=== PATIENT | male | born 1930 | race Caucasian/White ===

== ENCOUNTER 2017-06-28 06:13 | Observation (INO) ==
[2017-06-28 06:33] LABS: Basophils % 0.3 %; Eosinophils % 0.4 %; Hemoglobin 13.4 g/dL (12.9-16.9); Immature Granulocytes % 0.5 % (0-4); Lymphocytes # 0.9 K/mcL (0.6-4.6); Lymphocytes % 8.7 %; Mean Corpuscular HGB Conc 32.7 g/dL (31.6-35.5); Mean Corpuscular Hemoglobin 29.1 pg (28.0-33.3); Mean Corpuscular Volume 88.9 fL (83.0-100.0); Mean Platelet Volume 8.5 fL (9.4-12.4); Monocytes # 0.5 K/mcL (0.0-1.3); Neutrophils # 8.4 K/mcL (1.6-8.9); Platelet Count 237 K/mcL (140-400); Red Blood Count 4.61 M/mcL (4.19-5.50); Red Cell Distribution Width 13.3 % (11.5-14.5); Segmented Neutrophils % 85.1 %
--- NOTE | 2017-06-28 06:33 | Emergency Department Note ---
Disposition Clinical Impression: Abdominal pain Qualifiers: Abdominal location: unspecified location Qualified Code(s): R10.9 - Unspecified abdominal pain Disposition: Still a Patient Condition: Undetermined Forms: ED Satisfaction Letter, Work/School Release General Adult HPI - General Chief complaint: ED Abdominal Pain Stated complaint: abd pain Time Seen by Provider: 06/28/17 06:14 Source: patient, EMS Mode of arrival: EMS Limitations: no limitations Nursing Notes Reviewed: Yes Vital Signs Reviewed: Yes - History of Present Illness HPI Narrative: 87-year-old male history of hypertension presents to the ED via EMS for or abdominal pain. Pain started around 2 AM this morning. He had eaten supper around 1999 no issues attempted ago asleep but has been experiencing a dull ache in the right upper quadrant. Pain is nonradiating. No associated nausea, vomiting, chest pain, shortness of breath. Prior to arrival here pain resolved. No history of such pain in the past. Had a recent hernia surgery [address] Mooney but still has his appendix and gallbladder. Denies any history of cardiac ischemic disease. Patient was never smoker. He does have this straight Himself since his surgery as he also has prostate issues. Pain was initially reported as right lower quadrant but upon exam is consistently in the right upper quadrant Pain Scale: 2 - Related Data Home Medications Medication Instructions Recorded Confirmed Amlodipine Besylate [Amlodipine 10 mg PO DAILY 11/25/15 11/25/15 Besylate] Aspirin 81 mg PO DAILY 11/25/15 11/25/15 Calcium Carbonate [Calcium] 600 mg PO DAILY 11/25/15 11/25/15 Chlorthalidone 25 mg PO QAM 11/25/15 11/25/15 Donepezil [Aricept] 10 mg PO HS 11/25/15 11/25/15 Ergocalciferol (VITAMIN D2) 200 unit PO DAILY 11/25/15 11/25/15 [Vitamin D] Irbesartan [Avapro] 75 mg PO DAILY 11/25/15 11/25/15 Isosorbide MONOnitrate [Isosorbide 120 mg PO DAILY 11/25/15 11/25/15 Mononitrate ER] Multivit-Min/FA/Lycopen/Lutein 1 each PO DAILY 11/25/15 11/25/15 [Centrum Silver Tablet] Omeprazole [PriLOSEC] 20 mg PO DAILY 11/25/15 11/25/15 Tamsulosin [Flomax] 0.4 mg PO DAILY 11/25/15 11/25/15 Previous Rx's Medication Instructions Recorded Oxycodone HCl/Acetaminophen 1 tab PO Q6H PRN #39 tab 11/25/15 [Percocet 10-325 mg Tablet] Ciprofloxacin [Cipro] 500 mg PO BID #14 tablet 12/03/15 Hydrocodone/Acetaminophen 1 each PO Q6HR PRN #14 tablet 06/04/16 [Hydrocodon-Acetaminophen 5-325] Allergies Allergy/AdvReac Type Severity Reaction Status Date / Time Amoxicillin Allergy Hives Verified 06/28/17 06:14 clindamycin Allergy Hives Verified 06/28/17 06:14 Penicillins Allergy Hives Verified 06/28/17 06:14 All systems ED: reviewed and negative except as stated. Review of Systems: As Per HPI Constitutional: Denies: fever, chills Eyes: Denies: eye pain, vision change ENT ED: Denies: congestion, dysphagia Cardiovascular: Denies: chest pain, dyspnea on exertion Respiratory: Denies: cough, dyspnea Gastrointestinal: Reports: abdominal pain. Denies: nausea, vomiting, diarrhea, constipation, melena, hematochezia Genitourinary: Denies: urgency, dysuria Musculoskeletal: Denies: back pain, neck pain Integumentary: Denies: rash, abrasion Neurological: Denies: headache, weakness Psychiatric: Denies: anxiety, depression Past Medical History - Past Medical History Attestation: Yes The following information was validated with the patient. Source: patient Medical history: Reports: GERD, hypertension, other Psychiatric history: Reports: no psych history - Social History Smoking Status: Never smoker Smokeless Tobacco Status: No Alcohol use: Reports: occasionally Drug use: Reports: none Physical Exam - General Limitations: no limitations General appearance: alert, in no apparent distress - Head Head exam: atraumatic, normocephalic, normal inspection - Eye Eye exam: Present: normal appearance, PERRL, EOMI - ENT ENT exam: normal exam, normal oropharynx, mucous membranes moist - Neck Neck exam: Present: normal inspection, full ROM, trachea midline - Chest Chest inspection: Present: normal inspection, symmetric chest wall rise. Absent : tenderness, rash - Respiratory Respiratory exam: Present: normal lung sounds bilaterally. Absent: respiratory distress, wheezes - Cardiovascular Cardiovascular exam: Present: normal rhythm, bradycardia, normal heart sounds. Absent: systolic murmur, diastolic murmur - Abdominal Exam Abdominal exam: Present: soft, tenderness, normal bowel sounds, Tian's sign. Absent: Non-Tender, distention, guarding, rebound, rigidity, tenderness at McBurney's Point, hernia Abdominal tenderness: Present: RUQ - Extremities Exam Extremities exam: Present: normal inspection, full ROM, normal capillary refill. Absent: tenderness, pedal edema, calf tenderness - Back Exam Back exam: Present: normal inspection, full ROM. Absent: tenderness, CVA tenderness (R), CVA tenderness (L) - Neurological Exam Neurological exam: Present: alert, oriented X3 - Psychiatric Psychiatric exam: Present: normal affect, normal mood - Skin Skin exam: Present: warm, dry, intact, normal color Course Course Narrative: 87-year-old male presents with abdominal pain in the right upper quadrant. Sudden in onset described as a ache ache nonradiating. Denies any associated chest pain or shortness of breath. Denies any diaphoresis. He does admit to occasional alcohol use. Denies any history of coronary arterial disease. Vital signs are stable. EKG does not show ST elevations or depression. Will check a CMP, lipase as well as a troponin EKG and chest x-ray. Bedside ultrasound to evaluate the gallbladder showed some sludge but no pericholecystic fluid or anterior wall thickening. Patient will be signed up to daytime physician Dr. Carbajal and Dr. Dao for further management and disposition. Vital Signs Temperature 97.4 F L 06/28/17 06:14 Pulse Rate 65 06/28/17 06:14 Respiratory Rate 16 06/28/17 06:14 Blood Pressure 164/76 06/28/17 06:14 O2 Sat by Pulse Oximetry 98 06/28/17 06:14 Temperature 97.4 F L 06/28/17 06:14 Pulse Rate 65 06/28/17 06:14 Respiratory Rate 16 06/28/17 06:14 Blood Pressure 164/76 06/28/17 06:14 O2 Sat by Pulse Oximetry 98 06/28/17 06:14 Oxygen Delivery Oxygen Delivery Room Air Medical Decision Making - Medical Records Medical records reviewed: Yes I reviewed the patient's medical records. - Lab Data Lab results reviewed: Yes I reviewed the patient's lab results. Result diagrams: 06/28/17 06:28 06/28/17 06:28 Lab Results 06/28/17 06/28/17 06/28/17 Range/Units 06:28 06:28 06:28 WBC 9.8 (4.3-11.1) K/mcL RBC 4.61 (4.19-5.50) M/mcL Hgb 13.4 (12.9-16.9) g/dL Hct 41.0 (37.5-50.1) % MCV 88.9 (83.0-100.0) fL MCH 29.1 (28.0-33.3) pg MCHC 32.7 (31.6-35.5) g/dL RDW 13.3 (11.5-14.5) % Plt Count 237 (140-400) K/mcL MPV 8.5 L (9.4-12.4) fL Immature Gran % 0.5 (0-4) % Seg Neutrophils % 85.1 % Lymphocytes % 8.7 % Monocytes % 5.0 % Eosinophils % 0.4 % Basophils % 0.3 % Neutrophils # 8.4 (1.6-8.9) K/mcL Lymphocytes # 0.9 (0.6-4.6) K/mcL Monocytes # 0.5 (0.0-1.3) K/mcL Eosinophils # 0.0 (0.0-0.6) K/mcL Basophils # 0.0 (0.0-0.2) K/mcL Sodium 139 (136-145) mEq/L Potassium 3.1 L (3.5-4.5) mEq/L Chloride 102 (98-109) mEq/L Carbon Dioxide 27 (19-29) mEq/L BUN 16 (8-26) mg/dL Creatinine 1.32 H (0.72-1.25) mg/dL Est GFR ( Amer) > 60 (> 60) Est GFR (Non-Af Amer) 51 L (> 60) BUN/Creatinine Ratio 12 (6-26) Glucose 177 H (70-99) mg/dL Calculated Osmolality 294 (280-300) Calcium 9.3 (8.6-10.8) mg/dL Total Bilirubin 0.6 (0.2-1.2) mg/dL Direct Bilirubin 0.3 (0.0-0.5) mg/dL Indirect Bilirubin 0.3 (0.0-1.2) mg/dL AST 20 (5-34) Units/L ALT 18 (0-55) Units/L Alkaline Phosphatase 93 (38-126) Units/L Troponin I 0.02 (0-0.03) ng/mL Serum Total Protein 7.3 (6.0-8.3) g/dL Albumin 3.7 (3.5-5.0) g/dL Globulin 3.6 H (2.4-3.5) g/dL Albumin/Globulin Ratio 1.0 L (1.1-2.2) Lipase < 10 (8-78) Units/L - Radiology Data Radiology results reviewed: Yes I reviewed the patient's radiology results. Chest X-Ray 06/28/17 06:23 IMPRESSION: Stable chest without focal airspace consolidation. D/ / Rashid Melgar MD / Rashid Melgar MD Interpreting Provider: Rashid Melgar MD - EKG Data EKG #1 EKG attestation: Yes I reviewed and interpreted this EKG. EKG results narrative: EKG performed 627 sinus bradycardia 54 bpm prolonged IA interval to 50 with a premature atrial contraction, there is poor R wave progression, other intervals are within normal limits. No ST elevations or depression. Compared to old EKG performed 11/10/2015 shows consistent findings of the sinus bradycardia with a first-degree AV block with moderate intraventricular conduction delay seen on today's EKG. No acute ischemic changes. S.B.A.R. - Kane.[email or web address].Clau Situation: Demographics, MOA Background: Presenting Complaint, Relevant PMH, Meds, & Allergies Assessment: Vital Signs, Course and respsone to treatment, Exam Concerns, Patient/Family Expectation, Pertinant Lab Results, Outstanding Labs Recommendation: Barrier(s) to disposition, Recommendation based on pending studies, treatments, or consults S.[email or web address] Report Given to: johann Chinchilla Time: 07:00
--- NOTE | 2017-06-28 06:41 | Emergency Department Note ---
START Narrative - START START: I, Boone Connors, examined this patient and my medical decision-making was reviewed with the TRUSS MAKER/PA/Advanced Practice Nurse/Resident Physician. I agree with the documented findings, disposition and treatment plan as described except to the extent set forth below. 87-year-old male presents emergency Department with concerns of right upper quadrant and epigastric abdominal pain which started around 2 AM. Patient states he is unable to sleep secondary to the pain. No history of similar pain in the past. Patient denies a history of cardiac disease although he has a history of elevated blood pressure. Pain is present in the emergency department he describes it as a dull ache in the right upper quadrant epigastrium that does not radiate. Initial EKG by EMS showed possible ST elevations in lead 3 however repeat EKG in the emergency Department does not show evidence of STEMI. It does however show multiple PACs. At time of end of shift, patient labs are pending and patient care will be transferred to Dr. Mata pending further care and evaluation
[2017-06-28 06:46] LABS: Alanine Aminotransferase 18 Units/L (0-55); Albumin 3.7 g/dL (3.5-5.0); Alkaline Phosphatase 93 Units/L (38-126); Aspartate Amino Transferase 20 Units/L (5-34); BUN/Creatinine Ratio 12 (6-26); Bilirubin,Direct 0.3 mg/dL (0.0-0.5); Bilirubin,Indirect 0.3 mg/dL (0.0-1.2); Bilirubin,Total 0.6 mg/dL (0.2-1.2); Blood Urea Nitrogen 16 mg/dL (8-26); Calcium 9.3 mg/dL (8.6-10.8); Carbon Dioxide 27 mEq/L (19-29); Chloride 102 mEq/L (98-109); Globulin 3.6 g/dL (2.4-3.5); Glucose 177 mg/dL (70-99); Osmolality,Calculated 294 (280-300); Potassium 3.1 mEq/L (3.5-4.5); Sodium 139 mEq/L (136-145); Total Protein 7.3 g/dL (6.0-8.3); eGFR For African Americans > 60 (> 60); eGFR For Non-African Americans 51 (> 60)
[2017-06-28 06:47] LABS: Lipase < 10 Units/L (8-78)
--- NOTE | 2017-06-28 07:29 | Emergency Department Note ---
Disposition Clinical Impression: RUQ pain, UTI (urinary tract infection) Cardiac arrhythmia Qualifiers: Arrhythmia type: unspecified cardiac arrhythmia Qualified Code(s): I49.9 - Cardiac arrhythmia, unspecified Disposition: Admitted As Inpatient Condition: Fair Time of Disposition: 12:10 Abdominal Pain HPI - General Chief Complaint: ED Abdominal Pain Stated Complaint: abd pain Time Seen by Provider: 06/28/17 06:14 Source: patient, EMS Mode of arrival: EMS Nursing Notes Reviewed: Yes Vital Signs Reviewed: Yes - History of Present Illness HPI Narrative: Patient received on sign out from the night team with laboratory results pending. Mr. Flores, an 87-year-old male, presents from home via EMS for abdominal pain. Onset 02:00. Located in the right upper quadrant. Described as a dull ache, nonradiating. Nothing noted to improve or worsen his symptoms. Spontaneously resolved just prior to arrival. He ate dinner the night previous without any issues. No history of similar pains in the past. Patient and his daughter at bedside are both concerned about the appendix. No history of CAD, ACS, COPD. PSH: Hernia surgery. Still has appendix and gallbladder. Habits: Never smoked, no elicit, no EtOH ROS: Positive: As above Negative: Fever, chills, nausea, vomiting, chest pain, dyspnea, diaphoresis, dysuria, changes in bowel habits, back pain Pain Scale: 2 - Related Data Home Medications Medication Instructions Recorded Confirmed Amlodipine Besylate [Amlodipine 10 mg PO DAILY 11/25/15 06/28/17 Besylate] Aspirin 81 mg PO DAILY 11/25/15 06/28/17 Calcium Carbonate [Calcium] 600 mg PO DAILY 11/25/15 06/28/17 Chlorthalidone 25 mg PO QAM 11/25/15 06/28/17 Donepezil [Aricept] 10 mg PO HS 11/25/15 06/28/17 Ergocalciferol (VITAMIN D2) 200 unit PO DAILY 11/25/15 06/28/17 [Vitamin D] Irbesartan [Avapro] 75 mg PO DAILY 11/25/15 06/28/17 Isosorbide MONOnitrate [Isosorbide 120 mg PO DAILY 11/25/15 06/28/17 Mononitrate ER] Multivit-Min/FA/Lycopen/Lutein 1 each PO DAILY 11/25/15 06/28/17 [Centrum Silver Tablet] Omeprazole [PriLOSEC] 20 mg PO DAILY 11/25/15 06/28/17 Tamsulosin [Flomax] 0.4 mg PO DAILY 11/25/15 06/28/17 Allergies Allergy/AdvReac Type Severity Reaction Status Date / Time Amoxicillin Allergy Hives Verified 06/28/17 06:14 clindamycin Allergy Hives Verified 06/28/17 06:14 Penicillins Allergy Hives Verified 06/28/17 06:14 All systems ED: reviewed and negative except as stated. Review of Systems: As Per HPI Constitutional: Denies: fever, chills Eyes: Denies: eye pain, vision change ENT ED: Denies: congestion, dysphagia Cardiovascular: Denies: chest pain, dyspnea on exertion Respiratory: Denies: cough, dyspnea Gastrointestinal: Reports: abdominal pain. Denies: nausea, vomiting, diarrhea, constipation, melena, hematochezia Genitourinary: Denies: urgency, dysuria Musculoskeletal: Denies: back pain, neck pain Integumentary: Denies: rash, abrasion Neurological: Denies: headache, weakness Psychiatric: Denies: anxiety, depression Abdominal Pain PMH - Past Medical History Medical history: Reports: GERD, hypertension, other Male Surgical History: Reports: herniorrhaphy Psychiatric history: Reports: no psych history - Social History Smoking status: Never smoker Alcohol use: Reports: occasionally Drug use: Reports: none Physical Exam Vital Signs Reviewed General: Patient is alert, oriented, and in no acute distress. HEENT: No facial asymmetry. Head is normocephalic and atraumatic. Oral mucosa moist. Trachea midline. Cardiovascular: Heart regular rate and rhythm without clicks, rubs, gallops, or murmurs. No JVD. PMI nondisplaced. Respiratory: Symmetric chest rise with good respiratory effort. Bilateral breath sounds are clear without wheezing, crackles, or rhonchi. Abdomen: Scaphoid. Bowel sounds present normoactive x-4 quadrants. Abdomen is soft, nondistended. No organomegaly noted. Right upper quadrant tenderness; positive Tian sign. No epigastric tenderness. No right lower quadrant tenderness, negative McBurney, negative Rozving. Psych: Patient's affect is appropriate for situation. - General Limitations: no limitations General appearance: alert, in no apparent distress Course Course Narrative: Patient's physical exam is not concerning for appendicitis. Physical exam is consistent with what I received on sign out; positive Tian with right upper quadrant tenderness. I discussed the patient with [facility]; patient's only intra-abdominal pathology was cholelithiasis without cholecysitis. Chest X-Ray 06/28/17 06:23 IMPRESSION: Stable chest without focal airspace consolidation. D/ / Rashid Melgar MD / Rashid Melgar MD Interpreting Provider: Rashid Melgar MD Abdomen/Pelvis CT 06/28/17 07:14 IMPRESSION: 1. No definite acute process identified in the abdomen or pelvis. 2. Tiny amount of pleural gas is seen at the anterior right lung base, suggesting a very tiny pneumothorax. This is not appreciated on the chest x-ray performed on the same date. No rib fractures are seen. This result was called by Dr. Daniela Baugh to Levi Dao on 06/28/2017 at 09:17. 3. Layering density in the gallbladder, suggesting gallstones and/or sludge. No CT evidence of gallbladder inflammation. Correlation with ultrasound reportedly performed in the Emergency Department is recommended. 4. Extensive colonic diverticulosis without evidence of acute diverticulitis. 5. Large right urinary bladder diverticulum with mild diffuse urinary bladder wall thickening, which could be related to cystitis or chronic outlet obstruction. D/ / 06/28/2017 09:21:42 Dnaiela Baugh / francisco Interpreting Provider: Daniela Baugh The reason for [facility], Dr. Baugh, who called to discuss a right lower lobe artifact versus pneumothorax. We both looked at the CT while on the phone as well as reviewed the patient's chest x-ray; no evidence of pneumothorax on chest x-ray. Still, because of the potential concerning finding , will admit patient for further monitoring and repeat CXR. I discussed the above with the patient and his daughter at bedside. They agree to admission for interval evaluation. There are no additional questions or concerns at this time. On my attending's reevaluation, patient was in atrial fibrillation. EKG ordered. CHADsVASC score = 2 Additional reason for admission is new onset atrial fibrillation. EKG showed sinus arrhythmia; unable to capture the SVT my attending saw while he was bedside. Will recommend tele bed. Additionally, patient has a UTI. He has a history of BPH necessitating self- cath. Will begin cipro IV and place son cath. I discussed the patient with the admitting hospitalist, Dr. Mendoza, who agrees to accept the patient. Vital Signs Temperature 97.4 F L 06/28/17 06:14 Pulse Rate 65 06/28/17 06:14 Respiratory Rate 16 06/28/17 06:14 Blood Pressure 164/76 06/28/17 06:14 O2 Sat by Pulse Oximetry 98 06/28/17 06:14 Temperature 98.1 F 06/28/17 15:00 Pulse Rate 68 06/28/17 15:00 Respiratory Rate 14 06/28/17 15:00 Blood Pressure 136/77 06/28/17 15:00 O2 Sat by Pulse Oximetry 96 06/28/17 15:00 Oxygen Delivery Oxygen Delivery Room Air Abdominal Pain - Lab Data Lab results reviewed: Yes I reviewed the patient's lab results. Result diagrams: 06/28/17 06:28 06/28/17 06:28 Lab Results 06/28/17 06/28/17 06/28/17 Range/Units 06:28 06:28 06:28 WBC 9.8 (4.3-11.1) K/mcL RBC 4.61 (4.19-5.50) M/mcL Hgb 13.4 (12.9-16.9) g/dL Hct 41.0 (37.5-50.1) % MCV 88.9 (83.0-100.0) fL MCH 29.1 (28.0-33.3) pg MCHC 32.7 (31.6-35.5) g/dL RDW 13.3 (11.5-14.5) % Plt Count 237 (140-400) K/mcL MPV 8.5 L (9.4-12.4) fL Immature Gran % 0.5 (0-4) % Seg Neutrophils % 85.1 % Lymphocytes % 8.7 % Monocytes % 5.0 % Eosinophils % 0.4 % Basophils % 0.3 % Neutrophils # 8.4 (1.6-8.9) K/mcL Lymphocytes # 0.9 (0.6-4.6) K/mcL Monocytes # 0.5 (0.0-1.3) K/mcL Eosinophils # 0.0 (0.0-0.6) K/mcL Basophils # 0.0 (0.0-0.2) K/mcL Sodium 139 (136-145) mEq/L Potassium 3.1 L (3.5-4.5) mEq/L Chloride 102 (98-109) mEq/L Carbon Dioxide 27 (19-29) mEq/L BUN 16 (8-26) mg/dL Creatinine 1.32 H (0.72-1.25) mg/dL Est GFR ( Amer) > 60 (> 60) Est GFR (Non-Af Amer) 51 L (> 60) BUN/Creatinine Ratio 12 (6-26) Glucose 177 H (70-99) mg/dL Calculated Osmolality 294 (280-300) Lactic Acid (0.5-2.2) mmol/L Calcium 9.3 (8.6-10.8) mg/dL Total Bilirubin 0.6 (0.2-1.2) mg/dL Direct Bilirubin 0.3 (0.0-0.5) mg/dL Indirect Bilirubin 0.3 (0.0-1.2) mg/dL AST 20 (5-34) Units/L ALT 18 (0-55) Units/L Alkaline Phosphatase 93 (38-126) Units/L Troponin I 0.02 (0-0.03) ng/mL Serum Total Protein 7.3 (6.0-8.3) g/dL Albumin 3.7 (3.5-5.0) g/dL Globulin 3.6 H (2.4-3.5) g/dL Albumin/Globulin Ratio 1.0 L (1.1-2.2) Lipase < 10 (8-78) Units/L Urine Color (Yellow) Urine Clarity (Clear) Urine pH (5.0-8.0) pH Units Ur Specific Cap[place] (1.010-1.025) Urine Protein (Neg-Trace) mg/dL Urine Glucose (UA) (Normal) mg/dL Urine Ketones (Negative) mg/dL Urine Blood (Negative) Urine Nitrite (Negative) Urine Bilirubin (Negative) Urine Urobilinogen (Normal) mg/dL Ur Leukocyte Esterase (Negative) Urine Microscopic RBC (0-3) per hpf Urine Microscopic WBC (0-3) per hpf Ur Squamous Epith Cells (None-Few) per lpf Urine Bacteria (None-Few) per hpf Hyaline Casts (None-Few) per lpf Ur Culture Indicated? (NO) 06/28/17 06/28/17 Range/Units 07:38 07:40 WBC (4.3-11.1) K/mcL RBC (4.19-5.50) M/mcL Hgb (12.9-16.9) g/dL Hct (37.5-50.1) % MCV (83.0-100.0) fL MCH (28.0-33.3) pg MCHC (31.6-35.5) g/dL RDW (11.5-14.5) % Plt Count (140-400) K/mcL MPV (9.4-12.4) fL Immature Gran % (0-4) % Seg Neutrophils % % Lymphocytes % % Monocytes % % Eosinophils % % Basophils % % Neutrophils # (1.6-8.9) K/mcL Lymphocytes # (0.6-4.6) K/mcL Monocytes # (0.0-1.3) K/mcL Eosinophils # (0.0-0.6) K/mcL Basophils # (0.0-0.2) K/mcL Sodium (136-145) mEq/L Potassium (3.5-4.5) mEq/L Chloride (98-109) mEq/L Carbon Dioxide (19-29) mEq/L BUN (8-26) mg/dL Creatinine (0.72-1.25) mg/dL Est GFR ( Amer) (> 60) Est GFR (Non-Af Amer) (> 60) BUN/Creatinine Ratio (6-26) Glucose (70-99) mg/dL Calculated Osmolality (280-300) Lactic Acid 0.8 (0.5-2.2) mmol/L Calcium (8.6-10.8) mg/dL Total Bilirubin (0.2-1.2) mg/dL Direct Bilirubin (0.0-0.5) mg/dL Indirect Bilirubin (0.0-1.2) mg/dL AST (5-34) Units/L ALT (0-55) Units/L Alkaline Phosphatase (38-126) Units/L Troponin I (0-0.03) ng/mL Serum Total Protein (6.0-8.3) g/dL Albumin (3.5-5.0) g/dL Globulin (2.4-3.5) g/dL Albumin/Globulin Ratio (1.1-2.2) Lipase (8-78) Units/L Urine Color Yellow (Yellow) Urine Clarity Cloudy A (Clear) Urine pH 7.0 (5.0-8.0) pH Units Ur Specific [place] 1.018 (1.010-1.025) Urine Protein 30 H (Neg-Trace) mg/dL Urine Glucose (UA) Normal (Normal) mg/dL Urine Ketones Trace H (Negative) mg/dL Urine Blood Moderate H (Negative) Urine Nitrite Negative (Negative) Urine Bilirubin Negative (Negative) Urine Urobilinogen Normal (Normal) mg/dL Ur Leukocyte Esterase Large H (Negative) Urine Microscopic RBC 15-30 H (0-3) per hpf Urine Microscopic WBC TNTC H (0-3) per hpf Ur Squamous Epith Cells Few (None-Few) per lpf Urine Bacteria Many H (None-Few) per hpf Hyaline Casts None Seen (None-Few) per lpf Ur Culture Indicated? YES A (NO) - EKG Data EKG attestation: Yes I reviewed and interpreted this EKG. EKG results narrative: EKG dated 06/28/17 at 11:11 interpreted as sinus rhythm with a rate of 63. OR 185, QRS 138, prolonged QT of 462 with QTc 469. Interventricular conduction delay. Left axis. Sinus arrhythmia. Nonspecific ST-T changes. No previous EKG for comparison. Attestation Statement - Attestation Attestation: I examined this patient and my medical decision-making was reviewed with the Resident Physician. I agree with the documented findings, disposition and treatment plan as described except to the extent set forth below. Findings consistent with right upper quadrant pain. CT scan shows possible pneumothorax. On review the imaging this is found to be a incidental trauma and likely does not represent an actual pneumothorax. We discussed with multiple radiologist. Patient will be admitted for evaluation of urinary tract infection in the setting of right upper quadrant pain.
[2017-06-28 07:49] LABS: Bilirubin,Urine Negative (Negative); Blood,Urine Moderate (Negative); Clarity,Urine Cloudy (Clear); Color,Urine Yellow (Yellow); Glucose,Urine (UA) Normal (Normal); Ketones,Urine Trace mg/dL (Negative); Leukocyte Esterase,Urine Large (Negative); Nitrite,Urine Negative (Negative); Protein,Urine 30 mg/dL (Neg-Trace); Specific Gravity,Urine 1.018 (1.010-1.025); Urobilinogen,Urine Normal (Normal)
[2017-06-28 07:52] LABS: Bacteria,Urine Many per hpf (None-Few); Hyaline Casts,Urine None Seen per lpf (None-Few); RBC,Urine 15-30 per hpf (0-3); Squamous Epithelial Cell,Urine Few per lpf (None-Few); WBC,Urine TNTC per hpf (0-3)
--- NOTE | 2017-06-28 14:16 | Electrocardiograph Report ---
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
--- NOTE | 2017-06-28 15:16 | Electrocardiograph Report ---
[facility] Test Date: 2017-06-28 Pat Name: Bonilla Flores Department: 104 Room: 3B31 Gender: M Cook Barbecue: KATELIN : 1930 Requested By: Ritchie Chamberlain Order Number: [id number] Reading MD: Gamaliel Burrows MD Measurements Intervals [place] Rate: 54 P: 95 DE: 250 QRS: -48 QRSD: 138 T: 70 QT: 494 QTc: 481 Interpretive Statements SINUS BRADYCARDIA WITH FIRST DEGREE AV BLOCK WITH FREQUENT SUPRAVENTRICULAR PREMATURE COMPLEXES Lefy bundle branch block, not new present 11/2015 SEPTAL MYOCARDIAL INFARCTION [40+ ms Q WAVE IN V1/V2], OF INDETERMINATE AGE Electronically Signed On 06-28-2017 15:15:40 EST by Gamaliel Burrows MD
--- NOTE | 2017-06-28 17:32 | Internal Med History&Physical ---
Date of Encounter: 06/28/17 Time of Encounter: 13:00 Assessment and Plan (1) Acute cystitis with hematuria Current visit: Yes Status: Acute -Patient found to have pyuria on urinalysis. -Will continue IV Cipro started in the ER. (2) Abdominal pain Current visit: Yes Status: Acute -Suspect secondary to the above. -Will continue to monitor. Qualifiers: Abdominal location: generalized Qualified Code(s): R10.84 - Generalized abdominal pain (3) Hypokalemia Current visit: Yes Status: Acute -Will order potassium replacements. (4) HTN (hypertension) Current visit: Yes Status: Acute -Blood pressure stable; continue home medications. Qualifiers: Hypertension type: essential hypertension Qualified Code(s): I10 - Essential (primary) hypertension (5) BPH (benign prostatic hyperplasia) Current visit: Yes Status: Acute -Continue home medications. Qualifiers: Lower urinary tract symptom presence: symptoms present Qualified Code(s): N40.1 - Benign prostatic hyperplasia with lower urinary tract symptoms; R39.14 - Feeling of incomplete bladder emptying; R39.14 - Feeling of incomplete bladder emptying (6) GERD (gastroesophageal reflux disease) Current visit: Yes Status: Acute -Continue home medications. Qualifiers: Esophagitis presence: esophagitis presence not specified Qualified Code(s) : K21.9 - Gastro-esophageal reflux disease without esophagitis (7) Dementia Current visit: Yes Status: Acute -Continue home medications. Qualifiers: Dementia type: unspecified type Qualified Code(s): F03.90 - Unspecified dementia without behavioral disturbance (8) DVT prophylaxis Current visit: Yes Status: Acute -Subcutaneous heparin. Internal Medicine - H&P: HPI Chief complaint: Right-sided abdominal pain Admitted From: Home Plans for Post Hospital Care: Home History of present illness: Patient is an 87-year-old male with past medical history significant for hypertension, BPH, GERD, and dementia, who presented to the ER on 06/28/17 with right-sided abdominal pain. Patient states that his symptoms started approximately 2 months ago and has been intermittent. Patient progresses the pain as dull severity as 6-8 out of 10 without any radiation or provoking/relieving factors. Patient decided to come to the ER for further evaluation. In the ER, patients vital signs were stable and was afebrile without any leukocytosis. Patient was found to have pyuria on urinalysis in addition to hypokalemia and DAVEY on routine labs. Patient will be admitted to the medical floor for treatment of acute cystitis with microscopic hematuria in addition to treatment for DAVEY and hypokalemia. Past Med Surg Social Fam HX - Past Medical History Medical history: GERD, hypertension, other Psychiatric history: no psych history - Social History Smoking Status: Never smoker Smokeless Tobacco Status: No Alcohol use: occasionally Drug use: none Internal Medicine - H&P: Meds Amlodipine Besylate [Amlodipine Besylate] 10 mg PO DAILY 11/25/15 [History] Aspirin 81 mg PO DAILY 11/25/15 [History] Calcium Carbonate [Calcium] 600 mg PO DAILY 11/25/15 [History] Chlorthalidone 25 mg PO QAM 11/25/15 [History] Donepezil [Aricept] 10 mg PO HS 11/25/15 [History] Ergocalciferol (VITAMIN D2) [Vitamin D] 200 unit PO DAILY 11/25/15 [History] Irbesartan [Avapro] 75 mg PO DAILY 11/25/15 [History] Isosorbide MONOnitrate [Isosorbide Mononitrate ER] 120 mg PO DAILY 11/25/15 [ History] Multivit-Min/FA/Lycopen/Lutein [Centrum Silver Tablet] 1 each PO DAILY 11/25/15 [History] Omeprazole [PriLOSEC] 20 mg PO DAILY 11/25/15 [History] Tamsulosin [Flomax] 0.4 mg PO DAILY 11/25/15 [History] 3 Allergy/AdvReac Type Severity Reaction Status Date / Time Amoxicillin Allergy Hives Verified 06/28/17 06:14 clindamycin Allergy Hives Verified 06/28/17 06:14 Penicillins Allergy Hives Verified 06/28/17 06:14 All Systems PM: A 10-system review of systems was performed and is negative for pertinent findings except as documented above in the HPI. - Constitutional Vitals: Temp Pulse Resp BP Pulse Ox 98.1 F 68 14 136/77 96 06/28/17 15:00 06/28/17 15:00 06/28/17 15:00 06/28/17 15:00 06/28/17 15:00 General appearance: Present: A&O X 3 - Head Head exam: Present: normocephalic - Eye Eye exam: Present: normal appearance - ENT ENT exam: Present: mucous membranes dry - Respiratory Respiratory exam: Present: CTAB. Absent: accessory muscle use, rales, rhonchi, wheezes - Cardiovascular Cardiovascular exam: Present: RRR, +S1, +S2. Absent: diastolic murmur, gallop, rubs, systolic murmur - GI/Abdominal GI/Abdominal exam: Present: normal bowel sounds, soft, no peritoneal signs. Absent: distended, tenderness - Extremities Exam Extremities exam: Present: pedal edema - Neurological Exam Neurological exam: Present: CN II-XII intact, oriented X3 - Psychiatric Psychiatric exam: Present: normal mood - Skin Skin exam: Present: normal color Internal Med - H&P Results - Labs CBC & Chem 7: 06/28/17 06:28 06/28/17 06:28
[2017-06-28] MEDS ORDERED: Naloxone 0.4 MG/ML INJ IVP PRN (17:38)
[2017-06-28] MEDS: 0.9 % Sodium Chloride 1,000 ML IVC SCH (18:40)
[2017-06-28] MEDS: *HR* Heparin 5,000 UNIT/ML VIAL SQ SCH (18:41)
[2017-06-29 04:43] LABS: Basophils % 0.4 %; Eosinophils # 0.2 K/mcL (0.0-0.6); Eosinophils % 2.8 %; Hematocrit 35.7 % (37.5-50.1); Immature Granulocytes % 0.3 % (0-4); Lymphocytes # 1.4 K/mcL (0.6-4.6); Lymphocytes % 19.7 %; Mean Corpuscular HGB Conc 32.8 g/dL (31.6-35.5); Mean Corpuscular Volume 88.4 fL (83.0-100.0); Mean Platelet Volume 9.2 fL (9.4-12.4); Monocytes # 0.7 K/mcL (0.0-1.3); Monocytes % 9.3 %; Neutrophils # 4.7 K/mcL (1.6-8.9); Platelet Count 227 K/mcL (140-400); Red Blood Count 4.04 M/mcL (4.19-5.50); Red Cell Distribution Width 13.3 % (11.5-14.5); Segmented Neutrophils % 67.5 %
[2017-06-29 04:46] LABS: Hemoglobin 11.7 g/dL (12.9-16.9)
[2017-06-29 05:00] LABS: BUN/Creatinine Ratio 15 (6-26); Blood Urea Nitrogen 16 mg/dL (8-26); Calcium 8.7 mg/dL (8.6-10.8); Carbon Dioxide 26 mEq/L (19-29); Chloride 105 mEq/L (98-109); Glucose 115 mg/dL (70-99); Osmolality,Calculated 292 (280-300); Potassium 3.2 mEq/L (3.5-4.5); Sodium 140 mEq/L (136-145); eGFR For African Americans > 60 (> 60); eGFR For Non-African Americans > 60 (> 60)
[2017-06-29] MEDS: *HR* Heparin 5,000 UNIT/ML VIAL SQ SCH (06:04)
[2017-06-29] MEDS ORDERED: Isosorbide MONOnitrate (24 HR) 60 MG TAB.ER.24H PO SCH (09:00)
[2017-06-29] MEDS ORDERED: Aspirin 81 MG TAB.CHEW PO SCH (09:00)
[2017-06-29] MEDS ORDERED: amLODIPine 5 MG TABLET PO SCH (09:00)
[2017-06-29] MEDS: 0.9 % Sodium Chloride 1,000 ML IVC SCH (10:27)
[2017-06-29 16:05] VITALS: BP 119/57
--- NOTE | 2017-06-29 16:58 | Discharge Summary ---
Date of Encounter: 06/29/17 Time of Encounter: 11:00 - Discharge Diagnosis (1) Acute cystitis with hematuria Priority: Primary Status: Acute (2) Abdominal pain Priority: Primary Status: Acute Qualifiers: Abdominal location: generalized Qualified Code(s): R10.84 - Generalized abdominal pain (3) Hypokalemia Priority: Secondary Status: Acute (4) HTN (hypertension) Priority: Primary Status: Acute Qualifiers: Hypertension type: essential hypertension Qualified Code(s): I10 - Essential (primary) hypertension (5) BPH (benign prostatic hyperplasia) Priority: Secondary Status: Acute Qualifiers: Lower urinary tract symptom presence: symptoms present Qualified Code(s): N40.1 - Benign prostatic hyperplasia with lower urinary tract symptoms; R35.0 - Frequency of micturition; R35.0 - Frequency of micturition (6) GERD (gastroesophageal reflux disease) Priority: Secondary Status: Acute Qualifiers: Esophagitis presence: esophagitis presence not specified Qualified Code(s) : K21.9 - Gastro-esophageal reflux disease without esophagitis (7) Dementia Priority: Secondary Status: Acute Qualifiers: Dementia type: unspecified type Qualified Code(s): F03.90 - Unspecified dementia without behavioral disturbance - Discharge Medications Prescriptions: Nitrofurantoin Monohyd/M-Cryst [Macrobid 100 mg Capsule] 100 mg PO BID #10 capsule Home Medications: Amlodipine Besylate 10 mg PO DAILY 11/25/15 [History] Aspirin 81 mg PO DAILY 11/25/15 [History] Calcium Carbonate [Calcium] 600 mg PO DAILY 11/25/15 [History] Chlorthalidone 25 mg PO QAM 11/25/15 [History] Donepezil [Aricept] 10 mg PO HS 11/25/15 [History] Ergocalciferol (VITAMIN D2) [Vitamin D] 200 unit PO DAILY 11/25/15 [History] Irbesartan [Avapro] 75 mg PO DAILY 11/25/15 [History] Isosorbide MONOnitrate [Isosorbide Mononitrate ER] 120 mg PO DAILY 11/25/15 [ History] Multivit-Min/FA/Lycopen/Lutein [Centrum Silver Tablet] 1 each PO DAILY 11/25/15 [History] Omeprazole [PriLOSEC] 20 mg PO DAILY 11/25/15 [History] Tamsulosin [Flomax] 0.4 mg PO DAILY 11/25/15 [History] Nitrofurantoin Monohyd/M-Cryst [Macrobid 100 mg Capsule] 100 mg PO BID #10 capsule 06/29/17 [Rx] Allergies/Adverse Reactions: 3 Allergy/AdvReac Type Severity Reaction Status Date / Time Amoxicillin Allergy Hives Verified 06/28/17 06:14 clindamycin Allergy Hives Verified 06/28/17 06:14 Penicillins Allergy Hives Verified 06/28/17 06:14 Date of admission: 06/28/17 11:51 Primary care physician: Susy Champagne, Consults: 06/29/17 12:45 Consult to It Security Project Manager [CONS] Routine Reason for SW Consult: possible need for home health. - Patient Status Disposition: Home, Self-Care Condition: Fair - Discharge Instructions Follow Up With: Susy Champagne CNP [Primary Care Provider] - 07/06/17 9:30 am Hospital course: Patient is an 87-year-old male with past medical history significant for hypertension, BPH, GERD, and dementia, who presented to the ER on 06/28/17 with right-sided abdominal pain. Patient states that his symptoms started approximately 2 months ago and has been intermittent. Patient progresses the pain as dull severity as 6-8 out of 10 without any radiation or provoking/relieving factors. Patient decided to come to the ER for further evaluation. In the ER, patients vital signs were stable and was afebrile without any leukocytosis. Patient was found to have pyuria on urinalysis in addition to hypokalemia and DAVEY on routine labs. Patient will be admitted to the medical floor for treatment of acute cystitis with microscopic hematuria in addition to treatment for DAVEY and hypokalemia. During patients overnight hospital stay, his abdominal symptoms resolved with treatment of acute cystitis with IV Cipro. In addition, patients hypokalemia was corrected with potassium replacements. Patient will be discharged to follow up with primary care provider in 3-5 days and to continue a 5 day course of Macrobid. - Time Spent with Patient Total time spent providing and/or coordinating discharge services: Less than 30 minutes - Constitutional Vitals: Temp Pulse Resp BP Pulse Ox 97.8 F 54 14 119/57 92 06/29/17 16:01 06/29/17 16:01 06/29/17 16:01 06/29/17 16:01 06/29/17 16:01 General appearance: Present: A&O X 3 - Cardiovascular Cardiovascular exam: Present: RRR, +S1, +S2. Absent: diastolic murmur, gallop, rubs, systolic murmur
== END 2017-06-29 17:44 | disposition home or self-care (01) ==
LOC: EMEROO 06:13 → 3BNU 06:13 → SUATTDRO 11:51 → 3BNU 12:04
PROVIDERS: ADMIT Internal Medicine; ATTEND Hospitalist

== ENCOUNTER 2017-07-12 09:10 | Observation (INO) ==
[2017-07-12] MEDS ORDERED: *HR* FentaNYL (PF) 100 MCG/2 ML VIAL IVP ONE (09:13)
--- NOTE | 2017-07-12 09:18 | Emergency Department Note ---
Disposition Clinical Impression: Dislocation of hip joint prosthesis Qualifiers: Encounter type: initial encounter Qualified Code(s): T84.029A - Dislocation of unspecified internal joint prosthesis, initial encounter Disposition: Admitted As Inpatient Condition: Undetermined Instructions: Hip Dislocation (ED), Knee Immobilizer (ED) Reasons to Return/Additional Instructions: 1. Please have no weightbearing on that right leg as well as using the pillow that was administered to you. 2. Please follow-up tomorrow, 07/13/17, at [facility] with Dr. Pollard at 3:15 PM. 3. Please return to the emergency department if you have another episode where the hip becomes dislocated, worsening pain, or any other new symptoms as advised him of the room. Referrals: Benton Alva MD [Primary Care Provider] - Hudson Pollard MD [Partnered Physician] - Forms: ED Satisfaction Letter Time of Disposition: 16:04 Lower Extremity Injury HPI - General Chief Complaint: ED Extremity Injury, Lower Stated Complaint: R hip pain Time Seen by Provider: 07/12/17 09:13 Source: patient, EMS Mode of arrival: EMS Limitations: no limitations Nursing Notes Reviewed: Yes Vital Signs Reviewed: Yes - History of Present Illness HPI Narrative: 87-year-old male with prosthetic right hip performed at [address] Pollard here in [facility] arrives to [facility] emergency department complaining of right hip pain after attempting to perform an electrical repair at his house. The patient states he felt a pop and immediately went down to the ground. The patient denies any other complaints at this time but is not a large amount of pain in his right lower extremity. He is an obvious deformity of his right hip with his right lower extremity shortened and internally rotated. 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 Denies: paresthesias - Related Data Home Medications Medication Instructions Recorded Confirmed Amlodipine Besylate 10 mg PO DAILY 11/25/15 07/12/17 Aspirin 81 mg PO DAILY 11/25/15 07/12/17 Chlorthalidone 25 mg PO QAM 11/25/15 07/12/17 Donepezil [Aricept] 10 mg PO HS 11/25/15 07/12/17 Irbesartan [Avapro] 75 mg PO DAILY 11/25/15 07/12/17 Isosorbide MONOnitrate [Isosorbide 120 mg PO DAILY 11/25/15 07/12/17 Mononitrate ER] Multivit-Min/FA/Lycopen/Lutein 1 each PO DAILY 11/25/15 07/12/17 [Centrum Silver Tablet] Omeprazole [PriLOSEC] 20 mg PO DAILY 11/25/15 07/12/17 Tamsulosin [Flomax] 0.4 mg PO BID 11/25/15 07/12/17 Calcium Carbonate [Calcium] 1,000 mg PO DAILY 07/12/17 07/12/17 Cholecalciferol (D-3) [Vitamin D] 1,000 unit PO DAILY 07/12/17 07/12/17 Allergies Allergy/AdvReac Type Severity Reaction Status Date / Time Amoxicillin Allergy Hives Verified 06/28/17 06:14 clindamycin Allergy Hives Verified 06/28/17 06:14 Penicillins Allergy Hives Verified 06/28/17 06:14 All systems ED: reviewed and negative except as stated. Constitutional: Denies: fever, chills, weakness Cardiovascular: Denies: chest pain Respiratory: Denies: dyspnea Gastrointestinal: Denies: abdominal pain Genitourinary: Denies: dysuria Musculoskeletal: Reports: arthralgia. Denies: back pain, neck pain, myalgia Integumentary: Denies: rash Neurological: Denies: numbness Past Medical History - Past Medical History Attestation: Yes The following information was validated with the patient. Source: patient Medical history: Reports: GERD, hypertension, other Surgical history: Reports: orthopedic, other (Right hip replacement) Psychiatric history: Reports: no psych history - Social History Smoking Status: Never smoker Smokeless Tobacco Status: No Alcohol use: Reports: occasionally Drug use: Reports: none Physical Exam - General Limitations: no limitations General appearance: alert, in distress (due to pain) - Head Head exam: atraumatic, normocephalic, normal inspection - Eye Eye exam: Present: normal appearance, PERRL, EOMI - ENT ENT exam: normal exam - Neck Neck exam: Present: normal inspection, full ROM, trachea midline - Chest Chest inspection: Present: normal inspection, symmetric chest wall rise - Respiratory Respiratory exam: Absent: respiratory distress - Cardiovascular Cardiovascular exam: Present: regular rate - Extremities Exam Extremities exam: Present: other (Patient has obvious deformity to right hip. Tenderness over right hip region. Right lower extremity is shortened and internally rotated. Neurovascularly intact at this time.) Course - Reevaluation(s) Reevaluation #1: After reevaluation after anesthesia began to wear off, patient is feeling much better. He was attempted to be ambulated around the room and in the emergency department. He was unable to do so without losing his bouts. We will admit the patient to the hospitalist at this time for observation and likely discharge home tomorrow. Patient and family members agree to plan. No further questions or concerns noted. Accepted by Time: 14:38 Reevaluation #2: After attempting to admit the patient to the hospitalist service, the hospitalist stated that he did not feel as though this patient to the hospital service and rather the service. We spoke to Dr. Narvaez in orthopedic surgery is currently scrubbed in surgery and he said to contact Dr. Fountain. After contacting Dr. Fountain he agreed to accept the patient to his service. He stated to admit the patient. Time: 16:04 - Consultations Consultation #1: Spoke to orthopedic procurement professional who will be contacting Dr. Pollard for further care. Awaiting return call. Time: 10:57 Vital Signs Temperature 97.7 F 07/12/17 09:23 Pulse Rate 61 07/12/17 09:23 Respiratory Rate 17 07/12/17 09:23 Blood Pressure 154/70 07/12/17 09:23 O2 Sat by Pulse Oximetry 98 07/12/17 09:23 Temperature 97.7 F 07/12/17 09:23 Pulse Rate 58 07/12/17 13:14 Respiratory Rate 18 07/12/17 13:14 Blood Pressure 151/76 07/12/17 13:14 O2 Sat by Pulse Oximetry 97 07/12/17 13:14 Oxygen Delivery Oxygen Delivery [] Nasal Cannula Oxygen Delivery [] Nasal Cannula Oxygen Delivery [] Nasal Cannula Oxygen Delivery [] Nasal Cannula Oxygen Delivery [] Nasal Cannula Oxygen Delivery [] Nasal Cannula Oxygen Delivery [] Nasal Cannula Oxygen Delivery [] Nasal Cannula Oxygen Delivery Room Air Procedures - Orthopedic Joint Reduction Joint #1 Consent Obtained: written consent Time Out Performed: Yes Side: right Joint Reduction Location: hip ASA Classification: CLASS II-Mild systemic disease Analgesia: procedural sedation Technique used: traction/counter-traction, direct manipulation Post-reduction neuro exam: intact Post-reduction vascular: intact Post Reduction X-Ray Obtained: Yes Post Reduction X-Ray Results: not reduced Splint Applied: Yes Patient Tolerated Procedure: well, no complications - Procedural Sedation Indication: fracture/dislocation reduction Dietary Status: unknown H&P (including ROS) documented in medical record: Yes Previous reaction to sedatives/anesthetics: No Dentition: No loose teeth or bridges, full dentition Airway Assessment: Patient can open mouth completely, TMJ function normal, Micrognathia (under-bite, receding chin) absent, Neck with adequate range of motion Possible difficult airway: No ASA Classification: CLASS II-Mild systemic disease Plan of Care: Pt appropriate candidate for procedure/moderate/conscious sedation , Risks/benefits of procedure/sedation discussed w/ patient/family, If not NPO; Risk of intake outweiged by necessity to perform procedure Preparation: in shop service technician applied, pulse oximeter, capnometry used, supplemental O2 applied, suction/airway equipment at bedside, IV secured Ketamine: IV (1st sedation) IV Propofol Dose (mgs): 80 (2nd sedation) Patient Tolerated Procedure: well, no complications Complications: none Interventions: airway repositioned Additional Comments: First sedation performed with IV ketamine. Second sedation performed with 80 mg IV propofol. No complications noted. Extremity Injury, Lower - MDM Narrative Medical decision making narrative: The patient's first reduction attempt for sedation was unsuccessful. After speaking with orthopedic surgery they decided to come to the emergency department for reduction. This was performed by Dr. Fountain. This was successful. The patient has a follow-up appointment with orthopedic surgery in one day with Dr. Pollard. The patient is resting comfortably at this time. An abduction pillow was given to the patient. The patient was given instructions to have no weightbearing. The patient and daughter made aware. No further questions or concerns noted at this time. - Radiology Data Radiology results reviewed: Yes I reviewed the patient's radiology results. Attestation Statement - Attestation Attestation: I examined this patient and my medical decision-making was reviewed with the Resident Physician. I agree with the documented findings, disposition and treatment plan as described except to the extent set forth below. Clinically obvious right hip dislocation in patient with history of right hip prosthesis. Neurovascularly intact. I was present and assisting with both sedations and both reduction attempt. Cleared for discharge by Dr. Fountain and by me.
[2017-07-12] MEDS ORDERED: *HR* HYDROmorphone (PF) 1 MG/ML SYRINGE ONE (09:35)
[2017-07-12] MEDS ORDERED: Ketamine *HR* 500 MG/10 ML MDV IVP ONE ×2 (09:38→10:59)
[2017-07-12] MEDS ORDERED: *HR* Propofol 500 MG/50 ML BOTTLE IVP ONE (11:00)
[2017-07-12] MEDS ORDERED: 0.9 % Sodium Chloride 1,000 ML ONE (11:16)
--- NOTE | 2017-07-12 14:11 | Orthopedic Consult Note ---
Date of Encounter: 07/12/17 Time of Encounter: 11:30 Assessment and Plan (1) Dislocation of hip joint prosthesis Current Visit: Yes Status: Acute I did discuss the diagnosis in detail with the patient. He has a right prosthetic hip dislocation. Our recommendation was for another attempt at reduction in the emergency department but under propofol anesthesia which I think will help relax the muscle. After informed consent was obtained and a brief timeout to identify the correct patient, correct procedure, and the correct side the patient was sedated by the emergency department using propofol and I performed a closed reduction maneuver which adequately restore length to the right lower extremity and rotation. X-rays confirmed good reduction. My recommendation at this point is touchdown weightbearing to the right lower extremity, knee immobilizer, and abduction pillow. He will follow up with Dr. Pollard tomorrow. He will call the office sooner for any new or worsening concerns. Qualifiers: Encounter type: initial encounter Qualified Code(s): T84.029A - Dislocation of unspecified internal joint prosthesis, initial encounter; Z96.649 - Presence of unspecified artificial hip joint; Z96.649 - Presence of unspecified artificial hip joint History of Present Illness HPI: Mr. Flores is a 87 year old male who is about 4 years out from right total hip arthroplasty by my partner Dr. Pollard. The patient had been doing well. He is not had any complications regarding the right hip. He sustained an injury in his home earlier today when trying to make electrical repair. He felt a pop in his right hip and was brought in and found to have a dislocated right hip. The emergency department staff attempted a reduction with ketamine but was unsuccessful. I was consulted to assist in the evaluation and management of the patient. On my evaluation the patient planes isolated pain to the right hip and groin. He denies any numbness, tingling, or any other associated signs or symptoms or modifying factors. He denies other injuries. Past Med Surg Social Fam HX - Past Medical History Medical history: GERD, hypertension, other Psychiatric history: no psych history - Past Surgical History Surgical History: orthopedic, other (Right hip replacement) - Social History Smoking Status: Never smoker Smokeless Tobacco Status: No Alcohol use: occasionally Drug use: none Medications and Allergies Amlodipine Besylate 10 mg PO DAILY 11/25/15 [History] Aspirin 81 mg PO DAILY 11/25/15 [History] Calcium Carbonate [Calcium] 600 mg PO DAILY 11/25/15 [History] Chlorthalidone 25 mg PO QAM 11/25/15 [History] Donepezil [Aricept] 10 mg PO HS 11/25/15 [History] Ergocalciferol (VITAMIN D2) [Vitamin D] 200 unit PO DAILY 11/25/15 [History] Irbesartan [Avapro] 75 mg PO DAILY 11/25/15 [History] Isosorbide MONOnitrate [Isosorbide Mononitrate ER] 120 mg PO DAILY 11/25/15 [ History] Multivit-Min/FA/Lycopen/Lutein [Centrum Silver Tablet] 1 each PO DAILY 11/25/15 [History] Omeprazole [PriLOSEC] 20 mg PO DAILY 11/25/15 [History] Tamsulosin [Flomax] 0.4 mg PO DAILY 11/25/15 [History] Nitrofurantoin Monohyd/M-Cryst [Macrobid 100 mg Capsule] 100 mg PO BID #10 capsule 06/29/17 [Rx] 3 Allergy/AdvReac Type Severity Reaction Status Date / Time Amoxicillin Allergy Hives Verified 06/28/17 06:14 clindamycin Allergy Hives Verified 06/28/17 06:14 Penicillins Allergy Hives Verified 06/28/17 06:14 All Systems Reviewed: A 10-system review of systems was performed and is negative for pertinent findings except as documented above in the HPI. Physical Exam - Constitutional Vitals: Temp Pulse Resp BP Pulse Ox 97.7 F 58 18 151/76 97 07/12/17 09:23 07/12/17 13:14 07/12/17 13:14 07/12/17 13:14 07/12/17 13:14 CONSTITUTIONAL -Vitals reviewed -The patient is well developed, well nourished, well groomed PSYCHIATRIC -Fully alert and oriented -Pleasant mood RIGHT LOWER EXTREMITY Inspection shows that the skin and the soft tissue envelope of the thigh are intact. His incision is well-healed. Moderate tenderness in the proximal thigh and groin region. His foot is internally rotated and mildly shortened. He can dorsiflex and plantar flex ankle and toes and the foot is sensate and well-perfused. Diagnostic Imaging: I did personally review and interpret x-rays of the right hip which show a prosthetic dislocation. The components appear well fixed. Results - Labs Labs: All other labs normal. Consult Discharge Plan - Plan Instructions: Hip Dislocation (ED), Knee Immobilizer (ED) Additional Instructions: 1. Please have no weightbearing on that right leg as well as using the pillow that was administered to you. 2. Please follow-up tomorrow, 07/13/17, at [facility] with Dr. Pollard at 3:15 PM. 3. Please return to the emergency department if you have another episode where the hip becomes dislocated, worsening pain, or any other new symptoms as advised him of the room. Referrals: Hudson Pollard MD [Partnered Physician] - Benton Alva MD [Primary Care Provider] -
--- NOTE | 2017-07-12 18:33 | Orthopedic History & Physical ---
Date of Encounter: 07/12/17 Time of Encounter: 18:31 Assessment and Plan (1) Dislocation of hip joint prosthesis Current visit: Yes Status: Acute At this point we will provide comfort measures. I will consult physical therapy for mobilization. Touchdown weightbearing to the right lower extremity. Knee immobilizer and hip abduction pillow while in bed. I will discuss the case further with Dr. Pollard. Qualifiers: Encounter type: initial encounter Qualified Code(s): T84.029A - Dislocation of unspecified internal joint prosthesis, initial encounter; Z96.649 - Presence of unspecified artificial hip joint; Z96.649 - Presence of unspecified artificial hip joint History of Present Illness HPI: Mr. Flores is a 87 year old male who has had a prior right total hip replacement who is seen in the emergency department for prosthetic dislocation. This was reduced successfully but the family is uncomfortable and discharged and therefore the patient was admitted for comfort measures and social reasons. No injuries or complaints. The patient is quite comfortable. No numbness, tingling, or any other associated signs or symptoms. Past Med Surg Social Fam HX - Past Medical History Medical history: GERD, hypertension, other Psychiatric history: no psych history - Past Surgical History Surgical History: orthopedic, other (Right hip replacement) - Social History Smoking Status: Never smoker Smokeless Tobacco Status: No Alcohol use: occasionally Drug use: none Medications and Allergies Amlodipine Besylate 10 mg PO DAILY 11/25/15 [History] Aspirin 81 mg PO DAILY 11/25/15 [History] Chlorthalidone 25 mg PO QAM 11/25/15 [History] Donepezil [Aricept] 10 mg PO HS 11/25/15 [History] Irbesartan [Avapro] 75 mg PO DAILY 11/25/15 [History] Isosorbide MONOnitrate [Isosorbide Mononitrate ER] 120 mg PO DAILY 11/25/15 [ History] Multivit-Min/FA/Lycopen/Lutein [Centrum Silver Tablet] 1 each PO DAILY 11/25/15 [History] Omeprazole [PriLOSEC] 20 mg PO DAILY 11/25/15 [History] Tamsulosin [Flomax] 0.4 mg PO BID 11/25/15 [History] Calcium Carbonate [Calcium] 1,000 mg PO DAILY 07/12/17 [History] Cholecalciferol (D-3) [Vitamin D] 1,000 unit PO DAILY 07/12/17 [History] 3 Allergy/AdvReac Type Severity Reaction Status Date / Time Amoxicillin Allergy Hives Verified 06/28/17 06:14 clindamycin Allergy Hives Verified 06/28/17 06:14 Penicillins Allergy Hives Verified 06/28/17 06:14 All Systems Reviewed: A 10-system review of systems was performed and is negative for pertinent findings except as documented above in the HPI. Physical Exam - Constitutional Vitals: Temp Pulse Resp BP Pulse Ox 98.5 F 57 17 172/60 95 07/12/17 17:09 07/12/17 17:09 07/12/17 17:09 07/12/17 17:09 07/12/17 17:09 CONSTITUTIONAL -Vitals reviewed -The patient is well developed, well nourished, well groomed PSYCHIATRIC -Fully alert and oriented -Pleasant mood RIGHT UPPER EXTREMITY -Inspection shows that the limb is in good position -Abductor pillow was intact -The knee immobilizer is in place -He can grossly flex and extend the ankle and toes and the foot is sensate and well-perfused. Results - Labs Labs: All other labs normal.
[2017-07-12] MEDS ORDERED: *HR* HYDROcodone/Acet 5/325 mg TABLET PO PRN (18:35)
[2017-07-12] MEDS ORDERED: Naloxone 0.4 MG/ML INJ IVP PRN (18:35)
[2017-07-13] MEDS: *HR* Heparin 5,000 UNIT/ML VIAL SQ SCH ×2 (06:53→19:46)
--- NOTE | 2017-07-13 08:31 | Orthopedics Progress Note ---
Date of Encounter: 07/13/17 Time of Encounter: 08:30 Subjective Interval history: Patient seen this morning status post close reduction of dislocation of right total hip. Hip was replaced years ago is a first-time dislocation. Right lower extremity neurovascular intact Abduction pillow in place. Plans conservative management. Follow up in the office in 4-6 weeks. Objective Vital signs: Vital Signs Temp Pulse Resp BP Pulse Ox 07/13/17 06:54 98.2 F 59 16 164/80 93 07/13/17 04:30 98.4 F 43 151/79 95 07/13/17 00:01 98.0 F 68 15 162/70 94 07/12/17 20:04 98.0 F 68 15 103/70 95 07/12/17 17:09 98.5 F 57 17 172/60 95 Intake and Output 07/12/17 07/13/17 07/13/17 23:59 07:59 15:59 Output Total 650 / 650 400 / 400 Balance -650 / -650 -400 / -400 Output: Urine 650 / 650 Straight Cath 400 / 400 - VTE Documentation of Mechanical Device: Venous foot pump, device Consult Discharge Plan - Plan Referrals: Benton Alva MD [Primary Care Provider] -
[2017-07-13] MEDS: amLODIPine 5 MG TABLET PO SCH (15:43)
[2017-07-13] MEDS: Isosorbide MONOnitrate (24 HR) 60 MG TAB.ER.24H PO SCH (15:44)
[2017-07-13] MEDS: Multivit/Ca/Min/Fe/FA 1 TAB TABLET PO SCH (15:45)
[2017-07-13] MEDS: Aspirin 81 MG TAB.CHEW PO SCH (15:45)
[2017-07-13] MEDS: Cholecalciferol (D-3) 1,000 UNIT TABLET PO SCH (15:47)
[2017-07-14] MEDS: *HR* Heparin 5,000 UNIT/ML VIAL SQ SCH ×2 (05:08→17:30)
[2017-07-14] MEDS: Cholecalciferol (D-3) 1,000 UNIT TABLET PO SCH (07:44)
[2017-07-14] MEDS: Isosorbide MONOnitrate (24 HR) 60 MG TAB.ER.24H PO SCH (07:45)
[2017-07-14] MEDS: Multivit/Ca/Min/Fe/FA 1 TAB TABLET PO SCH (07:45)
[2017-07-14] MEDS: Aspirin 81 MG TAB.CHEW PO SCH (07:46)
[2017-07-14] MEDS: amLODIPine 5 MG TABLET PO SCH (07:46)
--- NOTE | 2017-07-14 18:35 | Internal Medicine Consult Note ---
Date of Encounter: 07/14/17 Time of Encounter: 18:31 - Assessment and Plan (1) RUQ pain Current Visit: No Status: Acute Assessment and plan: 1 patient has been experiencing right upper quadrant pain off and on for the past 2 weeks. He was recently admitted to this facility for UTI and straight catheter himself rectally 4 times a day. We will obtain urinalysis and perform a bladder scan. During his last visit he did have a ultrasound performed in the ER was suggestive of possible gallstones. We will check amylase and lipase perform hepatic panel and obtain right upper quadrant ultrasound. If this is negative we will perform a CT of abdomen Internal Medicine - CN: HPI - Data of Consult Patient: known to practice within the last 3 years Consult date: 07/14/17 Requesting Physician: Yonathan Fountain MD - Consult Narrative Reason for consult: abd pain History of present illness: Mr. Flores is a 87 year old male past medical history of GERD hypertension cardiomyopathy BPH diastolic dysfunction dementia. Patient was admitted to this hospital experiencing dislocation of his prosthetic right hip. This was successfully reduced by orthopedics and he was admitted for comfort and social reasons per orthopedics. Patient has been experiencing sharp right upper quadrant pain, he had not had a bowel movement and was given a laxative. After laxative he did have a bowel movement which she states improved his pain somewhat however he continues to experience the pain mostly when he sits up or moves. Rest relieves pain movement aggravates the pain. He has been experiencing the pain off and on for the past 2 weeks. He is able to tolerate food and has a good appetite he is passing flatus. He denies any melena, hematochezia or hematemesis. He does straight catheter himself approximately 4 times a day sometimes more. Last month he was admitted to this hospital for UTI , at this time he denies any urinary symptoms however he does state that he feels this may be a UTI. He also explained that when he was admitted last month ultrasound was completed in the ER which was suggestive of possible gallstones. Hospitalist services have been consulted for patient's abdominal pain. Presently the patient denies any pain or discomfort he is pleasant and cooperative. He is hemodynamically stable this time. I did review this case with Dr. Isbell who agrees with plan. Past Med Surg Social Fam HX - Past Medical History Medical history: GERD, hypertension, other Psychiatric history: no psych history - Past Surgical History Surgical History: orthopedic, other (Right hip replacement) - Social History Smoking Status: Never smoker Smokeless Tobacco Status: No Alcohol use: occasionally Drug use: none - Family History Father Living Status: Age at : 44 Cause of : Lymphatic leukemia Mother Living Status: Age at : 96 Cause of : "mental problems" Son Living Status: Age at : 50 Cause of : [place] All systems: reviewed and no additional remarkable complaints except as stated - Gastrointestinal Gastrointestinal: abdominal pain Internal Medicine - CN: Meds Amlodipine Besylate 10 mg PO DAILY 11/25/15 [History] Aspirin 81 mg PO DAILY 11/25/15 [History] Chlorthalidone 25 mg PO QAM 11/25/15 [History] Donepezil [Aricept] 10 mg PO HS 11/25/15 [History] Irbesartan [Avapro] 75 mg PO DAILY 11/25/15 [History] Isosorbide MONOnitrate [Isosorbide Mononitrate ER] 120 mg PO DAILY 11/25/15 [ History] Multivit-Min/FA/Lycopen/Lutein [Centrum Silver Tablet] 1 each PO DAILY 11/25/15 [History] Omeprazole [PriLOSEC] 20 mg PO DAILY 11/25/15 [History] Tamsulosin [Flomax] 0.4 mg PO BID 11/25/15 [History] Calcium Carbonate [Calcium] 1,000 mg PO DAILY 07/12/17 [History] Cholecalciferol (D-3) [Vitamin D] 1,000 unit PO DAILY 07/12/17 [History] 3 Allergy/AdvReac Type Severity Reaction Status Date / Time Amoxicillin Allergy Hives Verified 06/28/17 06:14 clindamycin Allergy Hives Verified 06/28/17 06:14 Penicillins Allergy Hives Verified 06/28/17 06:14 Internal Medicine - CN: Exam - Constitutional Vitals: Temp Pulse Resp BP Pulse Ox 98.7 F 57 16 116/66 93 07/14/17 17:11 07/14/17 17:11 07/14/17 17:11 07/14/17 17:11 07/14/17 17:11 General appearance IM: Present: A&O X 3, answers questions appropriately - Head Head exam: Present: atraumatic - Respiratory Respiratory exam: Present: CTAB - Cardiovascular Cardiovascular exam IM: Present: RRR, +S1, +S2 - GI/Abdominal Additional comments: Sharp Right upper quadrant pain upon movement - Neurological Exam Neurological exam: Present: alert, CN II-XII intact, oriented X3 - Skin Skin exam IM: Present: dry Consult Discharge Plan - Plan Referrals: Benton Alva MD [Primary Care Provider] -
--- NOTE | 2017-07-14 18:35 | Orthopedics Progress Note ---
Date of Encounter: 07/14/17 Time of Encounter: 07:35 - Assessment and Plan (1) Dislocation of hip joint prosthesis Current Visit: Yes Status: Acute Qualifiers: Qualified Code(s): T84.029A - Dislocation of unspecified internal joint prosthesis, initial encounter; Z96.649 - Presence of unspecified artificial hip joint; Z96.649 - Presence of unspecified artificial hip joint Subjective Interval history: S: Was resting in bed comfortably this morning Ongoing complaints of abdominal pain, history of gallstones O: Afebrile and vital signs are stable No significant pain with passive motion of the right hip Able to dorsiflex and plantarflex ankle and toes The foot is sensate and well-perfused Abdomen is soft and mildly tender A: Post prosthetic hip reduction in the emergency department Abdominal pain P: Physical therapy for mobilization Continue posterior hip precautions Awaiting placement We will consult hospitalist due to abdominal pain and history of gallstones Objective Vital signs: Vital Signs Temp Pulse Resp BP Pulse Ox 07/14/17 17:11 98.7 F 57 16 116/66 93 07/14/17 12:21 98.4 F 62 16 121/59 92 07/14/17 07:25 98.4 F 67 15 139/66 94 07/14/17 04:08 97.8 F 73 17 136/64 92 07/13/17 23:44 98.6 F 55 17 112/55 93 07/13/17 18:59 97.7 F 71 18 143/66 93 Intake and Output 07/14/17 07/14/17 07/14/17 07:59 15:59 23:59 Intake Total 100 / 100 Output Total 350 / 350 450 / 450 Balance -250 / -250 -450 / -450 Intake: Oral 100 / 100 Output: Straight Cath 350 / 350 450 / 450 - VTE Documentation of Mechanical Device: Venous foot pump, device Consult Discharge Plan - Plan Referrals: Benton Alva MD [Primary Care Provider] -
[2017-07-14 19:32] LABS: Bilirubin,Urine Negative (Negative); Blood,Urine Large (Negative); Clarity,Urine Cloudy (Clear); Color,Urine Yellow (Yellow); Glucose,Urine (UA) Normal (Normal); Ketones,Urine Negative (Negative); Leukocyte Esterase,Urine Moderate (Negative); Nitrite,Urine Positive (Negative); Protein,Urine 30 mg/dL (Neg-Trace); Specific Gravity,Urine 1.021 (1.010-1.025); Urobilinogen,Urine Normal (Normal)
[2017-07-14 19:34] LABS: Bacteria,Urine Many per hpf (None-Few); Hyaline Casts,Urine None Seen per lpf (None-Few); RBC,Urine 15-30 per hpf (0-3); Squamous Epithelial Cell,Urine Moderate per lpf (None-Few); WBC,Urine TNTC per hpf (0-3)
[2017-07-14 20:16] LABS: Basophils % 0.3 %; Eosinophils # 0.2 K/mcL (0.0-0.6); Eosinophils % 3.1 %; Hematocrit 37.8 % (37.5-50.1); Hemoglobin 12.8 g/dL (12.9-16.9); Immature Granulocytes % 0.3 % (0-4); Lymphocytes % 15.4 %; Mean Corpuscular HGB Conc 33.9 g/dL (31.6-35.5); Mean Corpuscular Hemoglobin 29.8 pg (28.0-33.3); Mean Corpuscular Volume 87.9 fL (83.0-100.0); Monocytes # 0.6 K/mcL (0.0-1.3); Monocytes % 8.4 %; Neutrophils # 4.9 K/mcL (1.6-8.9); Platelet Count 233 K/mcL (140-400); Red Cell Distribution Width 13.6 % (11.5-14.5); Segmented Neutrophils % 72.5 %
[2017-07-14 20:29] LABS: Amylase 53 Units/L (25-125); Lipase 17 Units/L (8-78)
[2017-07-14 20:30] LABS: Alanine Aminotransferase 23 Units/L (0-55); Albumin 3.2 g/dL (3.5-5.0); Albumin/Globulin Ratio 0.9 (1.1-2.2); Alkaline Phosphatase 77 Units/L (38-126); Aspartate Amino Transferase 25 Units/L (5-34); BUN/Creatinine Ratio 20 (6-26); Bilirubin,Direct 0.3 mg/dL (0.0-0.5); Bilirubin,Indirect 0.4 mg/dL (0.0-1.2); Bilirubin,Total 0.7 mg/dL (0.2-1.2); Blood Urea Nitrogen 22 mg/dL (8-26); Calcium 8.9 mg/dL (8.6-10.8); Carbon Dioxide 22 mEq/L (19-29); Chloride 104 mEq/L (98-109); Globulin 3.4 g/dL (2.4-3.5); Glucose 143 mg/dL (70-99); Osmolality,Calculated 298 (280-300); Potassium 3.4 mEq/L (3.5-4.5); Sodium 141 mEq/L (136-145); Total Protein 6.6 g/dL (6.0-8.3); eGFR For African Americans > 60 (> 60); eGFR For Non-African Americans > 60 (> 60)
[2017-07-15] MEDS ORDERED: Ondansetron 4 MG/2 ML VIAL IVP PRN (00:23)
[2017-07-15] MEDS: *HR* Heparin 5,000 UNIT/ML VIAL SQ SCH ×2 (06:06→17:53)
--- NOTE | 2017-07-15 08:02 | Orthopedics Progress Note ---
Date of Encounter: 07/15/17 Time of Encounter: 08:01 - Assessment and Plan (1) Dislocation of hip joint prosthesis Current Visit: Yes Status: Acute Qualifiers: Encounter type: initial encounter Qualified Code(s): T84.029A - Dislocation of unspecified internal joint prosthesis, initial encounter; Z96.649 - Presence of unspecified artificial hip joint; Z96.649 - Presence of unspecified artificial hip joint Subjective Interval history: Came to evaluate the patient this morning however he was down getting a CT scan. Objective Vital signs: Vital Signs Temp Pulse Resp BP Pulse Ox 07/15/17 07:11 98.6 F 64 16 123/70 93 07/15/17 03:23 98.1 F 69 1 156/74 93 07/15/17 00:52 98.4 F 73 17 131/73 94 07/14/17 18:57 98.1 F 68 17 145/74 94 07/14/17 17:11 98.7 F 57 16 116/66 93 07/14/17 12:21 98.4 F 62 16 121/59 92 Intake and Output 07/14/17 07/15/17 07/15/17 23:59 07:59 15:59 Intake Total 350 / 350 Output Total 50 / 50 775 / 775 Balance -50 / -50 -425 / -425 Intake: Oral 350 / 350 Output: Urine 375 / 375 Emesis 50 / 50 200 / 200 Straight Cath 200 / 200 - Labs CBC & BMP: 07/14/17 20:07 07/14/17 20:07 Labs: Abnormal lab results Hgb 12.8 g/dL (12.9-16.9) L 07/14/17 20:07 MPV 9.0 fL (9.4-12.4) L 07/14/17 20:07 Potassium 3.4 mEq/L (3.5-4.5) L 07/14/17 20:07 Glucose 143 mg/dL (70-99) H 07/14/17 20:07 Albumin 3.2 g/dL (3.5-5.0) L 07/14/17 20:07 Albumin/Globulin Ratio 0.9 (1.1-2.2) L 07/14/17 20:07 Urine Clarity Cloudy (Clear) A 07/14/17 19:15 Urine Protein 30 mg/dL (Neg-Trace) H 07/14/17 19:15 Urine Blood Large (Negative) H 07/14/17 19:15 Urine Nitrite Positive (Negative) A 07/14/17 19:15 Ur Leukocyte Esterase Moderate (Negative) H 07/14/17 19:15 Urine Microscopic RBC 15-30 per hpf (0-3) H 07/14/17 19:15 Urine Microscopic WBC TNTC per hpf (0-3) H 07/14/17 19:15 Ur Squamous Epith Cells Moderate per lpf (None-Few) H 07/14/17 19:15 Urine Bacteria Many per hpf (None-Few) H 07/14/17 19:15 Ur Culture Indicated? YES (NO) A 07/14/17 19:15 - VTE Documentation of Mechanical Device: Venous foot pump, device Consult Discharge Plan - Plan Referrals: Benton Alva MD [Primary Care Provider] -
--- NOTE | 2017-07-15 08:15 | Event Note ---
Date of Encounter: 07/14/17 Time of Encounter: 17:00 Discussed with MANUELA and agree with assessment and plan. Patient with new onset of abdominal pain but comfortable Will order imaging of RUQ and labs (LFTs/lipase) in addition to bladder scan an u/a Will continue to follow with ortho service
[2017-07-15] MEDS: Aspirin 81 MG TAB.CHEW PO SCH (08:56)
[2017-07-15] MEDS: Cholecalciferol (D-3) 1,000 UNIT TABLET PO SCH (08:56)
[2017-07-15] MEDS: Multivit/Ca/Min/Fe/FA 1 TAB TABLET PO SCH (08:56)
[2017-07-15] MEDS: amLODIPine 5 MG TABLET PO SCH (08:57)
[2017-07-15] MEDS: Isosorbide MONOnitrate (24 HR) 60 MG TAB.ER.24H PO SCH (08:57)
[2017-07-15] MEDS ORDERED: levoFLOXacin 500 MG TABLET PO SCH (10:00)
--- NOTE | 2017-07-15 11:15 | Internal Med Progress Note ---
Date of Encounter: 07/15/17 Time of Encounter: 09:00 - Assessment and plan (1) Conjunctivitis Current Visit: Yes Status: Acute Assessment and plan: Will start Cipro eyedrops. Qualifiers: Conjunctivitis type: acute Acute conjunctivitis type: unspecified Laterality: right Qualified Code(s): H10.31 - Unspecified acute conjunctivitis , right eye (2) RUQ pain Current Visit: No Status: Acute Assessment and plan: On exam, is mostly like right-sided rib pain, probably due to recent fall. Patient has negative Tian's sign and the pain is not located on the gallbladder site. - Liver enzyme, bilirubin, and lipase are all within normal limit. - US abd shows gall stone and polyp, no signs of inflammation, not explain the pain, no acute intervention or further workup at this point. - Suspect rib pain, will order chest x-ray. - Start naproxen 250 mg by mouth twice a day for 5 days. - If CXR negative, patient can be discharged and follow-up as outpatient. - We will follow up as patient is still in hospital. (3) UTI (urinary tract infection) Current Visit: No Status: Acute Assessment and plan: Patient denies dysuria or burning. He use self catheterization for urination. - Review pt's old chart, his most recent urine culture on 07/04/17 Shows enterobacter sensitive to Levaquin. - We will start him by mouth Levaquin 500 mg daily for 7 days. - Patient was encouraged to hydration. He was also educated to use clean method for self catheterization. - Antibiotics may change based on urine culture results. Qualifiers: Urinary tract infection type: acute cystitis Hematuria presence: without hematuria Qualified Code(s): N30.00 - Acute cystitis without hematuria (4) HTN (hypertension) Current Visit: No Status: Acute Assessment and plan: Continue home medications Qualifiers: Hypertension type: essential hypertension Qualified Code(s): I10 - Essential (primary) hypertension (5) Dislocation of hip joint prosthesis Current Visit: Yes Status: Acute Assessment and plan: Per orthopedic team Qualifiers: Encounter type: initial encounter Qualified Code(s): T84.029A - Dislocation of unspecified internal joint prosthesis, initial encounter; Z96.649 - Presence of unspecified artificial hip joint; Z96.649 - Presence of unspecified artificial hip joint - Time Spent With Patient 25 - 35 minutes - Subjective Interval history: Patient was seen and examined. Patient is still complaining of right-sided pain , the pain located on right rib cross mid-axillary line level, sharp, 10 out of 10 on movement, has been there for about at least 2 weeks. Pain is not related to eating or taking deep breaths. Patient denies dysuria, burning on urination. Patient denies chest pain or shortness of breath. He has no nausea or vomiting. Patient has recent fall about one month ago. Patient also complaining of right eye redness. No vision change, no pain on eye movements. - Constitutional Vitals: Temp Pulse Resp BP Pulse Ox 98.6 F 64 16 123/70 93 07/15/17 07:11 07/15/17 07:11 07/15/17 07:11 07/15/17 07:11 07/15/17 09:00 General appearance: Present: A&O X 3, answers questions appropriately - Head Head exam: Present: atraumatic, normocephalic - Eye Eye exam: Present: conjunctival injection (On right side.), PERRL, conjuntiva pink, sclera anicteric Pupils: Present: PERRL - Neck Neck exam general surgery: Present: supple, trachea midline. Absent: lymphadenopathy - Respiratory Respiratory exam: Present: chest wall tenderness (On right side rib cross mid- axillary line area.), CTAB. Absent: accessory muscle use, rales, rhonchi, wheezes - Cardiovascular Cardiovascular exam: Present: RRR, +S1, +S2. Absent: diastolic murmur, gallop, rubs, systolic murmur - GI/Abdominal GI/Abdominal exam: Present: normal bowel sounds, soft, no peritoneal signs. Absent: distended, tenderness - Extremities Exam Extremities exam: Present: warm, radial pulses palpable and symmetrical. Absent : calf tenderness, cyanotic, pedal edema - Neurological Exam Neurological exam: Present: CN II-XII intact, oriented X3, no focal deficits. Absent: pronater drift, facial droop, speech deficit - Skin Skin exam: Present: dry, intact Internal Medicine: Result - Labs CBC & Chem 7: 07/14/17 20:07 07/14/17 20:07 Labs: Short CBC 07/14/17 Range/Units 20:07 WBC 6.8 (4.3-11.1) K/mcL Hgb 12.8 L (12.9-16.9) g/dL Hct 37.8 (37.5-50.1) % Plt Count 233 (140-400) K/mcL Neutrophils # 4.9 (1.6-8.9) K/mcL BMP 07/14/17 20:07 Sodium 141 Potassium 3.4 L Chloride 104 Carbon Dioxide 22 BUN 22 Creatinine 1.09 Glucose 143 H Calcium 8.9 Liver Function 07/14/17 Range/Units 20:07 Total Bilirubin 0.7 (0.2-1.2) mg/dL Direct Bilirubin 0.3 (0.0-0.5) mg/dL AST 25 (5-34) Units/L ALT 23 (0-55) Units/L Alkaline Phosphatase 77 (38-126) Units/L Albumin 3.2 L (3.5-5.0) g/dL Urine 07/14/17 Range/Units 19:15 Urine Color Yellow (Yellow) Urine Clarity Cloudy A (Clear) Urine pH 7.0 (5.0-8.0) pH Units Ur Specific Hallock 1.021 (1.010-1.025) Urine Protein 30 H (Neg-Trace) mg/dL Urine Glucose (UA) Normal (Normal) mg/dL - Impressions Impressions Gallbladder Ultrasound 07/15/17 07:30 IMPRESSION: 1. Abnormal appearance of the gallbladder containing layering stones, sludge and several nondependent echogenic foci, likely representing gallbladder polyps. The gallbladder polyps measure up to 5 mm and based on ACR recommendations, do not warrant further imaging follow-up. 2. No gallbladder wall thickening or pericholecystic fluid identified. 3. No biliary ductal dilatation. D/ / 07/15/2017 09:00:07 Sunny Maurice MD / tequila Interpreting Provider: Sunny Maurice MD - VTE Documentation of Mechanical Device: Venous foot pump, device Consult Discharge Plan - Plan Referrals: Benton Alva MD [Primary Care Provider] -
[2017-07-15] MEDS: Ciprofloxacin OPTH Soln 2.5 ML BOTTLE RIGHT EYE SCH ×2 (12:09→15:14)
[2017-07-15 16:26] VITALS: BP 121/70
--- NOTE | 2017-07-15 17:24 | Orthopedics Progress Note ---
Date of Encounter: 07/15/17 Time of Encounter: 17:23 - Assessment and Plan (1) Dislocation of hip joint prosthesis Current Visit: Yes Status: Acute At this point we will provide comfort measures. I will consult physical therapy for mobilization. Touchdown weightbearing to the right lower extremity. Knee immobilizer and hip abduction pillow while in bed. I will discuss the case further with Dr. Pollard. Qualifiers: Encounter type: initial encounter Qualified Code(s): T84.029A - Dislocation of unspecified internal joint prosthesis, initial encounter; Z96.649 - Presence of unspecified artificial hip joint; Z96.649 - Presence of unspecified artificial hip joint Subjective Interval history: S: Seen at the bedside Resting in bed without any new complaint. O: Afebrile and vital signs are stable Right lower extremity benign No significant pain with passive hip motion. Dorsiflexes and plantar flexes the ankle and toes The foot is sensate and well-perfused A: Prosthetic hip dislocation on the right, doing well after closed reduction Urinary tract infection, conjunctivitis, and gallstones P: Appreciate the hospitalist's recommendations I will K for discharge today, going to rehabilitation Touchdown weightbearing to the right lower extremity Posterior hip precautions Follow-up with Dr. Pollard in the office next week Recommendations per the hospitalist include ciprofloxacin eyedrops, Levaquin for the UTI and naproxen. Objective Vital signs: Vital Signs Temp Pulse Resp BP Pulse Ox 07/15/17 16:25 98.0 F 55 17 121/70 95 07/15/17 09:00 93 07/15/17 07:11 98.6 F 64 16 123/70 93 07/15/17 03:23 98.1 F 69 1 156/74 93 07/15/17 00:52 98.4 F 73 17 131/73 94 07/14/17 18:57 98.1 F 68 17 145/74 94 Intake and Output 07/15/17 07/15/17 07/15/17 07:59 15:59 23:59 Intake Total 350 / 350 75 / 75 Output Total 775 / 775 Balance -425 / -425 75 / 75 Intake: Oral 350 / 350 75 / 75 Output: Urine 375 / 375 Emesis 200 / 200 Straight Cath 200 / 200 Other: Stool Size Moderate Stool Consistency formed Stool Color Brown Black # Bowel Movements 1 - Labs CBC & BMP: 07/14/17 20:07 07/14/17 20:07 Labs: Abnormal lab results Hgb 12.8 g/dL (12.9-16.9) L 07/14/17 20:07 MPV 9.0 fL (9.4-12.4) L 07/14/17 20:07 Potassium 3.4 mEq/L (3.5-4.5) L 07/14/17 20:07 Glucose 143 mg/dL (70-99) H 07/14/17 20:07 Albumin 3.2 g/dL (3.5-5.0) L 07/14/17 20:07 Albumin/Globulin Ratio 0.9 (1.1-2.2) L 07/14/17 20:07 Urine Clarity Cloudy (Clear) A 07/14/17 19:15 Urine Protein 30 mg/dL (Neg-Trace) H 07/14/17 19:15 Urine Blood Large (Negative) H 07/14/17 19:15 Urine Nitrite Positive (Negative) A 07/14/17 19:15 Ur Leukocyte Esterase Moderate (Negative) H 07/14/17 19:15 Urine Microscopic RBC 15-30 per hpf (0-3) H 07/14/17 19:15 Urine Microscopic WBC TNTC per hpf (0-3) H 07/14/17 19:15 Ur Squamous Epith Cells Moderate per lpf (None-Few) H 07/14/17 19:15 Urine Bacteria Many per hpf (None-Few) H 07/14/17 19:15 Ur Culture Indicated? YES (NO) A 07/14/17 19:15 - VTE Documentation of Mechanical Device: Venous foot pump, device Consult Discharge Plan - Plan Referrals: Benton Alva MD [Primary Care Provider] - (PT will need to follow up with his primary care provider)
--- NOTE | 2017-07-15 17:27 | Discharge Summary ---
Date of Encounter: 07/15/17 Time of Encounter: 17:25 - Discharge Diagnosis (1) Dislocation of hip joint prosthesis Priority: Primary Status: Acute Qualifiers: Encounter type: initial encounter Qualified Code(s): T84.029A - Dislocation of unspecified internal joint prosthesis, initial encounter; Z96.649 - Presence of unspecified artificial hip joint; Z96.649 - Presence of unspecified artificial hip joint - Discharge Medications Home Medications: Amlodipine Besylate 10 mg PO DAILY 11/25/15 [History] Aspirin 81 mg PO DAILY 11/25/15 [History] Chlorthalidone 25 mg PO QAM 11/25/15 [History] Donepezil [Aricept] 10 mg PO HS 11/25/15 [History] Irbesartan [Avapro] 75 mg PO DAILY 11/25/15 [History] Isosorbide MONOnitrate [Isosorbide Mononitrate ER] 120 mg PO DAILY 11/25/15 [ History] Multivit-Min/FA/Lycopen/Lutein [Centrum Silver Tablet] 1 each PO DAILY 11/25/15 [History] Omeprazole [PriLOSEC] 20 mg PO DAILY 11/25/15 [History] Tamsulosin [Flomax] 0.4 mg PO BID 11/25/15 [History] Calcium Carbonate [Calcium] 1,000 mg PO DAILY 07/12/17 [History] Cholecalciferol (D-3) [Vitamin D] 1,000 unit PO DAILY 07/12/17 [History] Allergies/Adverse Reactions: 3 Allergy/AdvReac Type Severity Reaction Status Date / Time Amoxicillin Allergy Hives Verified 06/28/17 06:14 clindamycin Allergy Hives Verified 06/28/17 06:14 Penicillins Allergy Hives Verified 06/28/17 06:14 Labs on day of discharge: Labs from last 24 hours 07/14/17 07/14/17 07/14/17 20:07 20:07 20:07 WBC 6.8 RBC 4.30 Hgb 12.8 L Hct 37.8 MCV 87.9 MCH 29.8 MCHC 33.9 RDW 13.6 Plt Count 233 MPV 9.0 L Immature Gran % 0.3 Seg Neutrophils % 72.5 Lymphocytes % 15.4 Monocytes % 8.4 Eosinophils % 3.1 Basophils % 0.3 Neutrophils # 4.9 Lymphocytes # 1.0 Monocytes # 0.6 Eosinophils # 0.2 Basophils # 0.0 Sodium 141 Potassium 3.4 L Chloride 104 Carbon Dioxide 22 BUN 22 Creatinine 1.09 Est GFR ( Amer) > 60 Est GFR (Non-Af Amer) > 60 BUN/Creatinine Ratio 20 Glucose 143 H Calculated Osmolality 298 Calcium 8.9 Total Bilirubin 0.7 Direct Bilirubin 0.3 Indirect Bilirubin 0.4 AST 25 ALT 23 Alkaline Phosphatase 77 Serum Total Protein 6.6 Albumin 3.2 L Globulin 3.4 Albumin/Globulin Ratio 0.9 L Amylase 53 Lipase 17 Urine Color Urine Clarity Urine pH Ur Specific [place] Urine Protein Urine Glucose (UA) Urine Ketones Urine Blood Urine Nitrite Urine Bilirubin Urine Urobilinogen Ur Leukocyte Esterase Urine Microscopic RBC Urine Microscopic WBC Ur Squamous Epith Cells Urine Bacteria Hyaline Casts Ur Culture Indicated? 07/14/17 19:15 WBC RBC Hgb Hct MCV MCH MCHC RDW Plt Count MPV Immature Gran % Seg Neutrophils % Lymphocytes % Monocytes % Eosinophils % Basophils % Neutrophils # Lymphocytes # Monocytes # Eosinophils # Basophils # Sodium Potassium Chloride Carbon Dioxide BUN Creatinine Est GFR ( Amer) Est GFR (Non-Af Amer) BUN/Creatinine Ratio Glucose Calculated Osmolality Calcium Total Bilirubin Direct Bilirubin Indirect Bilirubin AST ALT Alkaline Phosphatase Serum Total Protein Albumin Globulin Albumin/Globulin Ratio Amylase Lipase Urine Color Yellow Urine Clarity Cloudy A Urine pH 7.0 Ur Specific [place] 1.021 Urine Protein 30 H Urine Glucose (UA) Normal Urine Ketones Negative Urine Blood Large H Urine Nitrite Positive A Urine Bilirubin Negative Urine Urobilinogen Normal Ur Leukocyte Esterase Moderate H Urine Microscopic RBC 15-30 H Urine Microscopic WBC TNTC H Ur Squamous Epith Cells Moderate H Urine Bacteria Many H Hyaline Casts None Seen Ur Culture Indicated? YES A - Impressions ITS Impressions Gallbladder Ultrasound 07/15/17 07:30 IMPRESSION: 1. Abnormal appearance of the gallbladder containing layering stones, sludge and several nondependent echogenic foci, likely representing gallbladder polyps. The gallbladder polyps measure up to 5 mm and based on ACR recommendations, do not warrant further imaging follow-up. 2. No gallbladder wall thickening or pericholecystic fluid identified. 3. No biliary ductal dilatation. D/ / 07/15/2017 09:00:07 Sunny Maurice MD / tequila Interpreting Provider: Sunny Maurice MD Chest X-Ray 07/15/17 09:26 IMPRESSION: No acute process. No rib fracture visualized D/ / Rui Mcdaniel MD / Rui Mcdaniel MD Interpreting Provider: Rui Mcdaniel MD Date of admission: 07/12/17 16:19 Primary care physician: Benton Alva MD Consults: 07/12/17 18:37 Consult to Occupational Therapy [CONS] Routine Comment: Evaluate, develop and implement POC Reason for Consult: Mobilization; TDWB RLE Consult to Physical Therapy [CONS] Routine Comment: Evaluate, develop and implement POC Reason for Consult: Mobilization; TDWB RLE 07/12/17 19:35 Consult to Computer Network Support Specialist [CONS] Routine Reason for SW Consult: Discharge planning/Placement 07/14/17 07:34 Consult to Hospitalist [CONS] Routine Consulting Provider: Hospitalist Cecil Reason for Consult: BELLY PAIN Call Completed: Yes - Patient Status Disposition: Transfer SNF Condition: Undetermined - Discharge Instructions Follow Up With: Benton Alva MD [Primary Care Provider] - (PT will need to follow up with his primary care provider) Hudson Pollard MD [Partnered Physician] - - Diet and Activity Activity: other - Hospital Course Hospital course: Mr. 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 From an orthopedic standpoint his stay was uneventful and he had work with therapy recommended rehabilitation facility. Hospitalist was consulted due to abdominal pain and other issues and the patient does have gallstones, urinary tract infection and conjunctivitis. He is treated symptomatically. He was stable for discharge on 07/15/2017. - Time Spent with Patient Total time spent providing and/or coordinating discharge services: - VTE Documentation of Mechanical Device: Venous foot pump, device
--- NOTE | 2017-07-15 17:35 | Physician Discharge Referral ---
ExtendedCare Referral Info Transfer To: group home facility - Diagnosis (1) Dislocation of hip joint prosthesis Priority: Primary Status: Acute - Transfer Medications Prescriptions: Ciprofloxacin OPTH Soln [Ciloxan OPTH Soln] 2 drop RIGHT EYE Q4HR 5 Days bottle Home Medications: Amlodipine Besylate 10 mg PO DAILY 11/25/15 [History] Aspirin 81 mg PO DAILY 11/25/15 [History] Chlorthalidone 25 mg PO QAM 11/25/15 [History] Donepezil [Aricept] 10 mg PO HS 11/25/15 [History] Irbesartan [Avapro] 75 mg PO DAILY 11/25/15 [History] Isosorbide MONOnitrate [Isosorbide Mononitrate ER] 120 mg PO DAILY 11/25/15 [ History] Multivit-Min/FA/Lycopen/Lutein [Centrum Silver Tablet] 1 each PO DAILY 11/25/15 [History] Omeprazole [PriLOSEC] 20 mg PO DAILY 11/25/15 [History] Tamsulosin [Flomax] 0.4 mg PO BID 11/25/15 [History] Calcium Carbonate [Calcium] 1,000 mg PO DAILY 07/12/17 [History] Cholecalciferol (D-3) [Vitamin D] 1,000 unit PO DAILY 07/12/17 [History] Ciprofloxacin OPTH Soln [Ciloxan OPTH Soln] 2 drop RIGHT EYE Q4HR 5 Days bottle 07/15/17 [Rx] Naproxen [Naprosyn] 250 mg PO BID 5 Days tablet 07/15/17 [Rx] levoFLOXacin [Levaquin] 500 mg PO DAILY 7 Days tablet 07/15/17 [Rx] Allergies/Adverse Reactions: 3 Allergy/AdvReac Type Severity Reaction Status Date / Time Amoxicillin Allergy Hives Verified 06/28/17 06:14 clindamycin Allergy Hives Verified 06/28/17 06:14 Penicillins Allergy Hives Verified 06/28/17 06:14 - Respiratory Orders Smoking Cessation: Smoking cessation has been advised. For more information, call the [place] Tobacco Quit Line at 1-733-EFUB-NOW. - Mobility Orders Other (TDWB Right lower extremity.) - Rehabiliation Orders Rehab Orders: Evaluation for Physical Therapy (Consult PT and OT for mobilizatoin. TDWB Right lower extremity.), Evaluation for Occupational Therapy (Consult PT and OT for mobilizatoin. TDWB Right lower extremity.) Other: TDWB Right lower extremity Posterior hip precautions Abductor pillow between legs while in bed Knee immobilizer on right lower extremity while in bed Up to chair twice per day - Diet Orders Renal, Cardiac CERTIFICATION: I certify that the transfer of the above named patient to an Extended Care Facility is necessary for the continuing treatment of the diagnosis listed. The above information is true and accurate reflection of patient's current condition. Confidential - Redisclosure prohibited without a patient's written consent.
== END 2017-07-15 18:45 ==
LOC: 3NENU 09:10 → EMEROO 09:10 → 3NENU 16:56
PROVIDERS: ADMIT Orthopaedic Surgery Hand Surgery; ATTEND Orthopaedic Surgery Hand Surgery

== ENCOUNTER 2017-10-10 17:00 | Inpatient (IN) ==
[2017-10-10] MEDS ORDERED: 0.9 % Sodium Chloride 1,000 ML IVC ONE (17:06)
--- NOTE | 2017-10-10 17:09 | Emergency Department Note ---
START Narrative - START START: I examined this patient and my medical decision-making was reviewed with the Resident Physician. I agree with the documented findings, disposition and treatment plan as described except to the extent set forth below. 87-year-old male presents to the emergency room for weakness and a fever. He admits to a slight cough today. Symptom onset was all today. One bout of vomiting. Denies chest pain. Admits to weakness. Fever up to 102. 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 He does follow with a local fire engine pump operator here. Patient will need to be fully worked up from a possible sepsis standpoint.
--- NOTE | 2017-10-10 17:13 | Emergency Department Note ---
Disposition Clinical Impression: Hypokalemia Pneumonia Qualifiers: Pneumonia type: due to unspecified organism Laterality: left Lung location: lower lobe of lung Qualified Code(s): J18.1 - Lobar pneumonia, unspecified organism UTI (urinary tract infection) Qualifiers: Urinary tract infection type: site unspecified Hematuria presence: without hematuria Qualified Code(s): N39.0 - Urinary tract infection, site not specified Disposition: Admitted As Inpatient Forms: ED Satisfaction Letter Weakness HPI - General Chief complaint: ED Weakness Stated complaint: weakness N/V Time Seen by Provider: 10/10/17 17:05 Source: patient, EMS Mode of arrival: EMS Limitations: no limitations - History of Present Illness HPI Narrative: 87-year-old male with past history hypertension, diabetes, CAD, CVA, presents the emergency department via EMS for generalized weakness and fever. EMS reports his temperature was 102.3 in route to the hospital. He reports that he has felt general malaise over the past few days, worsening today. Associated symptoms include nausea, vomiting, nonproductive cough, dyspnea, sneezing, and lightheadedness. He reports that he must self catheter 3-4 times a day due to prostate problems. He was at [facility] one week ago for pacemaker placement. He denies syncope, falls, chest pain, abdominal pain, constipation, diarrhea, or leg pain/swelling. - Related Data Home Medications Medication Instructions Recorded Confirmed Amlodipine Besylate 10 mg PO DAILY 11/25/15 09/04/17 Chlorthalidone 25 mg PO QAM 11/25/15 09/04/17 Donepezil [Aricept] 10 mg PO HS 11/25/15 09/04/17 Irbesartan [Avapro] 75 mg PO DAILY 11/25/15 09/04/17 Isosorbide MONOnitrate [Isosorbide 120 mg PO DAILY 11/25/15 09/04/17 Mononitrate ER] Multivit-Min/FA/Lycopen/Lutein 1 each PO DAILY 11/25/15 09/04/17 [Centrum Silver Tablet] Omeprazole [PriLOSEC] 20 mg PO DAILY 11/25/15 09/04/17 Tamsulosin [Flomax] 0.4 mg PO BID 11/25/15 09/04/17 Calcium Carbonate [Calcium] 1,000 mg PO DAILY 07/12/17 09/04/17 Cholecalciferol (D-3) [Vitamin D] 1,000 unit PO DAILY 07/12/17 07/12/17 Aspirin 325 mg PO DAILY 10/10/17 10/10/17 Atorvastatin [Lipitor] 40 mg PO HS 10/10/17 10/10/17 Allergies Allergy/AdvReac Type Severity Reaction Status Date / Time Amoxicillin Allergy Hives Verified 10/10/17 17:17 azithromycin [From Zithromax] Allergy Rash Verified 10/10/17 17:17 clindamycin Allergy Hives Verified 10/10/17 17:17 Penicillins Allergy Hives Verified 10/10/17 17:17 sulfamethoxazole Allergy Hives Verified 10/10/17 17:17 [From Bactrim] trimethoprim [From Bactrim] Allergy Hives Verified 10/10/17 17:17 All systems ED: reviewed and negative except as stated. Review of Systems: As Per HPI Past Medical History - Past Medical History Medical history: Reports: non-contributory Surgical history: Reports: orthopedic, other (Right hip replacement) Psychiatric history: Reports: no psych history - Social History Smoking Status: Never smoker Smokeless Tobacco Status: No Alcohol use: Reports: rarely Drug use: Reports: none Physical Exam - General Limitations: no limitations General appearance: alert, other (appears uncomfortable) - Head Head exam: atraumatic, normocephalic, normal inspection - Eye Eye exam: Present: normal appearance, PERRL, EOMI. Absent: scleral icterus, conjunctival injection - Chest Chest inspection: Present: symmetric chest wall rise - Respiratory Respiratory exam: Absent: respiratory distress, accessory muscle use - Expanded Respiratory Exam Location: decreased breath sounds: Left, Right, Upper, Lower - Cardiovascular Cardiovascular exam: Present: regular rate, normal rhythm, +S1, +S2 - Abdominal Exam Abdominal exam: Present: soft, Non-Tender, normal bowel sounds - Extremities Exam Extremities exam: Present: normal inspection, normal capillary refill. Absent: tenderness, pedal edema - Neurological Exam Neurological exam: Present: alert, oriented X3 - Skin Skin exam: Present: warm, intact, diaphoresis Course Vital Signs Temperature 99.9 F H 10/10/17 17:11 Pulse Rate 75 10/10/17 17:11 Respiratory Rate 16 10/10/17 17:11 Blood Pressure 132/67 10/10/17 17:11 O2 Sat by Pulse Oximetry 95 10/10/17 17:11 Temperature 99.9 F H 10/10/17 17:11 Pulse Rate 71 10/10/17 18:03 Respiratory Rate 16 10/10/17 18:03 Blood Pressure 117/44 10/10/17 18:03 O2 Sat by Pulse Oximetry 96 10/10/17 18:03 Oxygen Delivery Oxygen Delivery Room Air Weakness - MDM Narrative Medical decision making narrative: Chest x-ray is concerning for left lower lobe infiltrates or pulmonary edema. With the patient's reported fever this is likely a pneumonia. Patient also has evidence of UTI on urinalysis. Will initiate antibiotics for both of these concerns with cefepime and vancomycin. CBC unremarkable, anemia is stable. BMP shows hypokalemia, currently being replaced. Discussed case with the admitting hospitalist, Dr. Rome, who accepted the patient for admission and requested to order Resp Inf Panel, Legionella, and Strep pneumo antigens. - Lab Data Lab results reviewed: Yes I reviewed the patient's lab results. Result diagrams: 10/10/17 17:27 10/10/17 17:27 Lab Results 10/10/17 10/10/17 10/10/17 Range/Units 17:27 17:27 17:27 WBC 7.9 (4.3-11.1) K/mcL RBC 4.07 L (4.19-5.50) M/mcL Hgb 12.1 L (12.9-16.9) g/dL Hct 36.1 L (37.5-50.1) % MCV 88.7 (83.0-100.0) fL MCH 29.7 (28.0-33.3) pg MCHC 33.5 (31.6-35.5) g/dL RDW 13.6 (11.5-14.5) % Plt Count 142 (140-400) K/mcL MPV 9.2 L (9.4-12.4) fL Immature Gran % 0.6 (0-4) % Seg Neutrophils % 86.4 % Lymphocytes % 3.2 % Monocytes % 7.0 % Eosinophils % 2.5 % Basophils % 0.3 % Neutrophils # 6.8 (1.6-8.9) K/mcL Lymphocytes # 0.3 L (0.6-4.6) K/mcL Monocytes # 0.6 (0.0-1.3) K/mcL Eosinophils # 0.2 (0.0-0.6) K/mcL Basophils # 0.0 (0.0-0.2) K/mcL PT 13.7 H (9.4-12.1) Seconds INR 1.3 Sodium (136-145) mEq/L Potassium (3.5-5.1) mEq/L Chloride (98-107) mEq/L Carbon Dioxide (23-29) mEq/L BUN (8-23) mg/dL Creatinine (0.70-1.30) mg/dL Est GFR ( Amer) (> 60) Est GFR (Non-Af Amer) (> 60) BUN/Creatinine Ratio (6-26) Glucose (70-105) mg/dL Calculated Osmolality (280-300) Lactic Acid 1.0 (0.5-2.2) mmol/L Calcium (8.6-10.3) mg/dL Total Bilirubin (0.3-1.0) mg/dL AST (13-39) Units/L ALT (7-52) Units/L Alkaline Phosphatase (34-104) Units/L Troponin I (< 0.04) ng/mL Serum Total Protein (6.4-8.9) g/dL Albumin (3.5-5.7) g/dL Globulin (2.4-3.5) g/dL Albumin/Globulin Ratio (1.1-2.2) Urine Color (Yellow) Urine Clarity (Clear) Urine pH (5.0-8.0) pH Units Ur Specific [place] (1.010-1.025) Urine Protein (Neg-Trace) mg/dL Urine Glucose (UA) (Normal) mg/dL Urine Ketones (Negative) mg/dL Urine Blood (Negative) Urine Nitrite (Negative) Urine Bilirubin (Negative) Urine Urobilinogen (Normal) mg/dL Ur Leukocyte Esterase (Negative) Urine Microscopic RBC (0-3) per hpf Urine Microscopic WBC (0-3) per hpf Ur Squamous Epith Cells (None-Few) per lpf Urine Bacteria (None-Few) per hpf Hyaline Casts (None-Few) per lpf Ur Culture Indicated? (NO) 10/10/17 10/10/17 Range/Units 17:27 18:00 WBC (4.3-11.1) K/mcL RBC (4.19-5.50) M/mcL Hgb (12.9-16.9) g/dL Hct (37.5-50.1) % MCV (83.0-100.0) fL MCH (28.0-33.3) pg MCHC (31.6-35.5) g/dL RDW (11.5-14.5) % Plt Count (140-400) K/mcL MPV (9.4-12.4) fL Immature Gran % (0-4) % Seg Neutrophils % % Lymphocytes % % Monocytes % % Eosinophils % % Basophils % % Neutrophils # (1.6-8.9) K/mcL Lymphocytes # (0.6-4.6) K/mcL Monocytes # (0.0-1.3) K/mcL Eosinophils # (0.0-0.6) K/mcL Basophils # (0.0-0.2) K/mcL PT (9.4-12.1) Seconds INR Sodium 137 (136-145) mEq/L Potassium 3.3 L (3.5-5.1) mEq/L Chloride 102 (98-107) mEq/L Carbon Dioxide 26 (23-29) mEq/L BUN 30 H (8-23) mg/dL Creatinine 1.26 (0.70-1.30) mg/dL Est GFR ( Amer) > 60 (> 60) Est GFR (Non-Af Amer) 54 L (> 60) BUN/Creatinine Ratio 24 (6-26) Glucose 186 H (70-105) mg/dL Calculated Osmolality 295 (280-300) Lactic Acid (0.5-2.2) mmol/L Calcium 8.8 (8.6-10.3) mg/dL Total Bilirubin 0.8 (0.3-1.0) mg/dL AST 17 (13-39) Units/L ALT 15 (7-52) Units/L Alkaline Phosphatase 70 (34-104) Units/L Troponin I 0.03 (< 0.04) ng/mL Serum Total Protein 5.8 L (6.4-8.9) g/dL Albumin 3.6 (3.5-5.7) g/dL Globulin 2.2 L (2.4-3.5) g/dL Albumin/Globulin Ratio 1.6 (1.1-2.2) Urine Color Dark Yellow (Yellow) Urine Clarity Cloudy A (Clear) Urine pH 6.0 (5.0-8.0) pH Units Ur Specific [place] 1.022 (1.010-1.025) Urine Protein 30 H (Neg-Trace) mg/dL Urine Glucose (UA) Normal (Normal) mg/dL Urine Ketones Negative (Negative) mg/dL Urine Blood Large H (Negative) Urine Nitrite Negative (Negative) Urine Bilirubin Small H (Negative) Urine Urobilinogen Normal (Normal) mg/dL Ur Leukocyte Esterase Moderate H (Negative) Urine Microscopic RBC 50-100 H (0-3) per hpf Urine Microscopic WBC TNTC H (0-3) per hpf Ur Squamous Epith Cells Few (None-Few) per lpf Urine Bacteria None Seen (None-Few) per hpf Hyaline Casts None Seen (None-Few) per lpf Ur Culture Indicated? YES A (NO) - Radiology Data Radiology results reviewed: Yes I reviewed the patient's radiology results. Chest x-ray concerning for left lower lobe pulmonary edema or infiltrates. - EKG Data EKG attestation: Yes I reviewed and interpreted this EKG. EKG results narrative: Sinus arrhythmia with frequent PVCs. QRS duration 126. QT duration 422. No noted ST elevation depression.
[2017-10-10 17:45] LABS: Basophils % 0.3 %; Eosinophils # 0.2 K/mcL (0.0-0.6); Eosinophils % 2.5 %; Hematocrit 36.1 % (37.5-50.1); Hemoglobin 12.1 g/dL (12.9-16.9); Immature Granulocytes % 0.6 % (0-4); Lymphocytes # 0.3 K/mcL (0.6-4.6); Lymphocytes % 3.2 %; Mean Corpuscular HGB Conc 33.5 g/dL (31.6-35.5); Mean Corpuscular Hemoglobin 29.7 pg (28.0-33.3); Mean Corpuscular Volume 88.7 fL (83.0-100.0); Mean Platelet Volume 9.2 fL (9.4-12.4); Monocytes # 0.6 K/mcL (0.0-1.3); Neutrophils # 6.8 K/mcL (1.6-8.9); Platelet Count 142 K/mcL (140-400); Red Blood Count 4.07 M/mcL (4.19-5.50); Red Cell Distribution Width 13.6 % (11.5-14.5); Segmented Neutrophils % 86.4 %
[2017-10-10 17:50] LABS: INR 1.3; Prothrombin Time 13.7 Seconds (9.4-12.1)
[2017-10-10 18:07] LABS: Alanine Aminotransferase 15 Units/L (7-52); Albumin 3.6 g/dL (3.5-5.7); Albumin/Globulin Ratio 1.6 (1.1-2.2); Alkaline Phosphatase 70 Units/L (34-104); Aspartate Amino Transferase 17 Units/L (13-39); BUN/Creatinine Ratio 24 (6-26); Bilirubin,Total 0.8 mg/dL (0.3-1.0); Blood Urea Nitrogen 30 mg/dL (8-23); Calcium 8.8 mg/dL (8.6-10.3); Carbon Dioxide 26 mEq/L (23-29); Chloride 102 mEq/L (98-107); Globulin 2.2 g/dL (2.4-3.5); Glucose 186 mg/dL (70-105); Osmolality,Calculated 295 (280-300); Potassium 3.3 mEq/L (3.5-5.1); Sodium 137 mEq/L (136-145); Total Protein 5.8 g/dL (6.4-8.9); Troponin I 0.03 ng/mL (< 0.04); eGFR For African Americans > 60 (> 60); eGFR For Non-African Americans 54 (> 60)
[2017-10-10 18:14] LABS: Bilirubin,Urine Small (Negative); Blood,Urine Large (Negative); Clarity,Urine Cloudy (Clear); Color,Urine Dark Yellow (Yellow); Glucose,Urine (UA) Normal (Normal); Ketones,Urine Negative (Negative); Leukocyte Esterase,Urine Moderate (Negative); Nitrite,Urine Negative (Negative); Protein,Urine 30 mg/dL (Neg-Trace); Specific Gravity,Urine 1.022 (1.010-1.025); Urobilinogen,Urine Normal (Normal)
[2017-10-10] MEDS ORDERED: Potassium Chloride 40 MEQ, Lidocaine 1% 2 ML in D5% in Water 500 ML IVPB ONE (18:16)
[2017-10-10] MEDS ORDERED: *HR* Promethazine 25 MG/ML VIAL IVP ONE (18:16)
[2017-10-10 18:18] LABS: Bacteria,Urine None Seen per hpf (None-Few); Hyaline Casts,Urine None Seen per lpf (None-Few); RBC,Urine 50-100 per hpf (0-3); Squamous Epithelial Cell,Urine Few per lpf (None-Few); WBC,Urine TNTC per hpf (0-3)
[2017-10-10] MEDS ORDERED: Cefepime HCl 2,000 MG in Water for inj. (sterile) 20 ML 20 ML IVP ONE (18:38)
[2017-10-10] MEDS ORDERED: Naloxone 0.4 MG/ML INJ IVP PRN (20:39)
[2017-10-10] MEDS ORDERED: Acetaminophen 325 MG TABLET PO PRN (20:39)
[2017-10-10] MEDS ORDERED: Ondansetron 4 MG/2 ML VIAL IVP PRN (20:44)
--- NOTE | 2017-10-10 21:46 | Internal Med History&Physical ---
Date of Encounter: 10/10/17 Time of Encounter: 20:00 Assessment and Plan (1) Hypokalemia Current visit: Yes Status: Acute We will give supplement of potassium. Follow-up potassium level (2) Pneumonia Current visit: Yes Status: Acute Patient has fever, nausea, nonproductive cough. Chest x-ray suspected left lower lobe pneumonia. Patient has been recently hospitalized at [facility]. Will treat patient as healthcare associated pneumonia. Patient also has history of CVA, need to rule out aspiration as well. - Keep patient nothing by mouth, IV fluid. - Swallow evaluation in a.m. - Place patient on Vanco and cefepime for HCAP - Oxygen supportive treatment - Symptomatic treatment for nausea and fever Qualifiers: Pneumonia type: due to unspecified organism Laterality: left Lung location: lower lobe of lung Qualified Code(s): J18.1 - Lobar pneumonia, unspecified organism (3) UTI (urinary tract infection) Current visit: Yes Status: Acute Patient is on antibiotics at this point. Follow-up urine culture Qualifiers: Urinary tract infection type: site unspecified Hematuria presence: without hematuria Qualified Code(s): N39.0 - Urinary tract infection, site not specified (4) DVT prophylaxis Current visit: No Status: Acute Heparin subcutaneously (5) HTN (hypertension) Current visit: No Status: Acute Hydralazine IV when necessary. Closely monitor BP. Resume home medication after passing swallow evaluation Qualifiers: Hypertension type: essential hypertension Qualified Code(s): I10 - Essential (primary) hypertension Internal Medicine - H&P: HPI Chief complaint: Fever and weakness Admitted From: Home Plans for Post Hospital Care: Home History of present illness: Mr. Flores is a 87 year old male with medical history of recent CVA, S/P PPM, sent to ER for fever, nausea, vomiting, and generalized weakness since today. Patient also has nonproductive cough. Patient has been hospitalized the [facility] about one month ago for CVA, which was treated by [facility]. Per patient's daughter, patient sometimes chock on swallow. Patient denies diarrhea. Patient denies abdominal pain, chest pain, or shortness of breath. In emergency room, flu test negative, chest x-ray shows possible left lower lobe pneumonia. Patient also was found UTI, he uses self straight catheter for urinating at home. Patient was admitted for HCAP and UTI. I have discussed with patient, together with patient's daughter Ms Kamilah Tong, regarding CODE STATUS. Pt clearly told me he does not want CPR but accepts intubation. DNR CCA placed. Past Med Surg Social Fam HX - Past Medical History Medical history: non-contributory Psychiatric history: no psych history - Past Surgical History Surgical History: orthopedic, other (Right hip replacement) - Social History Smoking Status: Never smoker Smokeless Tobacco Status: No Alcohol use: rarely Drug use: none - Family History Father Living Status: Mother Living Status: Son Living Status: Internal Medicine - H&P: Meds Amlodipine Besylate 10 mg PO DAILY 11/25/15 [History] Chlorthalidone 25 mg PO QAM 11/25/15 [History] Donepezil [Aricept] 10 mg PO HS 11/25/15 [History] Irbesartan [Avapro] 75 mg PO DAILY 11/25/15 [History] Isosorbide MONOnitrate [Isosorbide Mononitrate ER] 120 mg PO DAILY 11/25/15 [ History] Multivit-Min/FA/Lycopen/Lutein [Centrum Silver Tablet] 1 each PO DAILY 11/25/15 [History] Omeprazole [PriLOSEC] 20 mg PO DAILY 11/25/15 [History] Tamsulosin [Flomax] 0.4 mg PO BID 11/25/15 [History] Calcium Carbonate [Calcium] 1,000 mg PO DAILY 07/12/17 [History] Cholecalciferol (D-3) [Vitamin D] 1,000 unit PO DAILY 07/12/17 [History] Aspirin 325 mg PO DAILY 10/10/17 [History] Atorvastatin [Lipitor] 40 mg PO HS 10/10/17 [History] 3 Allergy/AdvReac Type Severity Reaction Status Date / Time Amoxicillin Allergy Hives Verified 10/10/17 17:17 azithromycin [From Zithromax] Allergy Rash Verified 10/10/17 17:17 clindamycin Allergy Hives Verified 10/10/17 17:17 Penicillins Allergy Hives Verified 10/10/17 17:17 sulfamethoxazole Allergy Hives Verified 10/10/17 17:17 [From Bactrim] trimethoprim [From Bactrim] Allergy Hives Verified 10/10/17 17:17 All Systems PM: A 10-system review of systems was performed and is negative for pertinent findings except as documented above in the HPI. - Constitutional Vitals: Temp Pulse Resp BP Pulse Ox 99.9 F H 60 18 113/60 96 10/10/17 17:11 10/10/17 20:40 10/10/17 21:35 10/10/17 21:35 10/10/17 20:40 General appearance: Present: A&O X 3, no acute distress, answers questions appropriately Exam: Lethargic - Head Head exam: Present: atraumatic, normocephalic - Eye Eye exam: Present: PERRL, conjuntiva pink, sclera anicteric Pupils: Present: PERRL - Neck Neck exam general surgery: Present: supple, trachea midline. Absent: lymphadenopathy - Respiratory Respiratory exam: Present: CTAB. Absent: accessory muscle use, rales, rhonchi, wheezes - Cardiovascular Cardiovascular exam: Present: RRR, +S1, +S2. Absent: diastolic murmur, gallop, rubs, systolic murmur - GI/Abdominal GI/Abdominal exam: Present: normal bowel sounds, soft, no peritoneal signs. Absent: distended, tenderness - Extremities Exam Extremities exam: Present: warm, radial pulses palpable and symmetrical. Absent : calf tenderness, cyanotic, pedal edema - Neurological Exam Neurological exam: Present: CN II-XII intact, oriented X3, no focal deficits. Absent: pronater drift, facial droop, speech deficit - Skin Skin exam: Present: dry, intact Internal Med - H&P Results - Labs CBC & Chem 7: 10/10/17 17:27 10/10/17 17:27 - EKG Data -: EKG Interpreted by Myself (Paced rhythm mixed with sinus rhythm with first degree AVB)
[2017-10-11] MEDS: 0.9 % Sodium Chloride 1,000 ML IVC SCH ×2 (00:34→19:22)
[2017-10-11] MEDS: *HR* Heparin 5,000 UNIT/ML VIAL SQ SCH ×2 (05:25→17:52)
[2017-10-11 05:55] LABS: Basophils % 0.2 %; Eosinophils # 0.3 K/mcL (0.0-0.6); Eosinophils % 6.1 %; Hematocrit 32.3 % (37.5-50.1); Hemoglobin 10.7 g/dL (12.9-16.9); Immature Granulocytes % 0.6 % (0-4); Lymphocytes # 0.5 K/mcL (0.6-4.6); Lymphocytes % 10.4 %; Mean Corpuscular HGB Conc 33.1 g/dL (31.6-35.5); Mean Corpuscular Hemoglobin 29.7 pg (28.0-33.3); Mean Corpuscular Volume 89.7 fL (83.0-100.0); Mean Platelet Volume 8.9 fL (9.4-12.4); Monocytes # 0.5 K/mcL (0.0-1.3); Monocytes % 9.8 %; Neutrophils # 3.6 K/mcL (1.6-8.9); Platelet Count 134 K/mcL (140-400); Red Cell Distribution Width 13.9 % (11.5-14.5); Segmented Neutrophils % 72.9 %
[2017-10-11 06:15] LABS: BUN/Creatinine Ratio 22 (6-26); Blood Urea Nitrogen 26 mg/dL (8-23); Calcium 8.2 mg/dL (8.6-10.3); Carbon Dioxide 27 mEq/L (23-29); Chloride 107 mEq/L (98-107); Glucose 124 mg/dL (70-105); Magnesium 1.8 mg/dL (1.6-2.6); Osmolality,Calculated 294 (280-300); Potassium 3.2 mEq/L (3.5-5.1); Sodium 139 mEq/L (136-145); eGFR For African Americans > 60 (> 60); eGFR For Non-African Americans 58 (> 60)
[2017-10-11 06:19] LABS: Platelet Estimate Normal (Normal)
[2017-10-11] MEDS ORDERED: Cefepime HCl 2,000 MG in Water for inj. (sterile) 20 ML IVP SCH (08:00)
[2017-10-11] MEDS: Pantoprazole 40 MG VIAL IVP SCH (09:32)
[2017-10-11] MEDS: Aspirin 325 MG TABLET PO SCH (09:32)
[2017-10-11] MEDS: Cefepime HCl 2,000 MG in Water for inj. (sterile) 20 ML 20 ML IVP SCH ×2 (10:36→21:33)
[2017-10-11] MEDS ORDERED: Potassium Chloride Elixir 20 MEQ/15 ML UDC PO ONE (11:42)
--- NOTE | 2017-10-11 15:22 | Internal Med Progress Note ---
Date of Encounter: 10/11/17 Time of Encounter: 17:59 - Assessment and plan (1) Pneumonia Current Visit: Yes Status: Acute Assessment and plan: Patient initially presented for fever, nausea, nonproductive cough. CXR showed a left lower lobe pneumonia. History of recent hospitalization at [facility] for a stroke. Concern for healthcare associated pneumonia. There was concern for aspiration with recent history of stroke seen by speech therapy and regular diet with thin liquids as recommended. Plan: - Day #2 of Vanco and cefepime for HCAP - Oxygen supportive treatment - Symptomatic treatment for nausea and fever Qualifiers: Pneumonia type: due to unspecified organism Laterality: left Lung location: lower lobe of lung Qualified Code(s): J18.1 - Lobar pneumonia, unspecified organism (2) UTI (urinary tract infection) Current Visit: Yes Status: Acute Assessment and plan: Patient self-cath's at home 4x daily due to enlarged prostate UA in ED showed possible infection, culture pending Plan: - Continue cefepime Qualifiers: Urinary tract infection type: site unspecified Hematuria presence: without hematuria Qualified Code(s): N39.0 - Urinary tract infection, site not specified (3) Hypokalemia Current Visit: Yes Status: Acute Assessment and plan: Continue to be low, today K: 3.2 down from 3.3 yesterday. Plan: - Replace potassium 40 mEq today (4) HTN (hypertension) Current Visit: No Status: Acute Assessment and plan: Hydralazine IV when necessary. Closely monitor BP. . Qualifiers: Hypertension type: essential hypertension Qualified Code(s): I10 - Essential (primary) hypertension (5) DVT prophylaxis Current Visit: No Status: Acute Assessment and plan: Heparin subcutaneously - Subjective Interval history: Patient is an 87-year-old male with a past medical history of recent CVA in which she was treated at [facility] one month ago, recent pacemaker placement one week ago at [facility] admitted from the emergency department for pneumonia and UTI. The patient came into the emergency department complaining of fevers chills weakness and one episode of nausea and vomiting. The patient's flu test was negative, his chest x-ray showed a possible left lower lobe pneumonia and his urine was found to have positive leukocyte esterase and white blood cells with large amount of blood. The patient does undergo self catheters at home 4 times daily for prostate issues. He was started on empiric antibiotics in the emergency department. His vital signs in the emergency Department were stable and patient satting at 95% on 2 L. Patient CBC shows no leukocytosis however he does have a hemoglobin of 10.7 which is down 2 points from yesterday. Remaining lab work is otherwise unremarkable. Patient was placed on vancomycin and cefepime for HCAP. Cover UTI as well. Cultures pending. Patient states he still feels week but feels improved from yesterday. Still difficulty in breathing. 10 System ROS is negative except as stated in HPI. - Constitutional Vitals: Temp Pulse Resp BP Pulse Ox 97.7 F 61 15 120/62 94 10/11/17 11:18 10/11/17 11:18 10/11/17 11:18 10/11/17 11:18 10/11/17 11:18 General appearance: Present: A&O X 3, no acute distress, answers questions appropriately Exam: Patient is sitting up in bed watching television. Speaks in full sentences, pleasant. - Head Head exam: Present: atraumatic, normal inspection, normocephalic - Eye Eye exam: Present: normal appearance, PERRL - Neck Neck exam general surgery: Present: normal inspection - Respiratory Respiratory exam: Present: rales (in LLL, otherwise clear) - Cardiovascular Cardiovascular exam: Present: RRR, +S1, +S2 - GI/Abdominal GI/Abdominal exam: Present: normal bowel sounds, soft, no peritoneal signs - Extremities Exam Extremities exam: Present: normal inspection, warm. Absent: pedal edema, tenderness - Back Exam Back exam: Present: normal inspection - Neurological Exam Neurological exam: Present: alert, oriented X3, no focal deficits - Psychiatric Psychiatric exam: Present: normal affect, normal mood - Skin Skin exam: Present: intact, normal color, warm Internal Medicine: Result - Labs CBC & Chem 7: 10/11/17 05:18 10/11/17 05:18 Labs: Short CBC 10/11/17 Range/Units 05:18 WBC 4.9 (4.3-11.1) K/mcL Hgb 10.7 L (12.9-16.9) g/dL Hct 32.3 L (37.5-50.1) % Plt Count 134 L (140-400) K/mcL Neutrophils # 3.6 (1.6-8.9) K/mcL BMP 03/06/18 05:18 Sodium 139 Potassium 3.2 L Chloride 107 Carbon Dioxide 27 BUN 26 H Creatinine 1.19 Glucose 124 H Calcium 8.2 L - ABG Interpretation ABG results: PT/INR, D-dimer PT 13.7 Seconds (9.4-12.1) H 10/10/17 17:27 Consult Discharge Plan - Plan Referrals: Benton Alva MD [Primary Care Provider] -
[2017-10-11] MEDS ORDERED: Cefepime HCl 2,000 MG in Water for inj. (sterile) 20 ML 20 ML IVP ONE (18:38)
[2017-10-12 05:04] LABS: BUN/Creatinine Ratio 20 (6-26); Blood Urea Nitrogen 23 mg/dL (8-23); Calcium 8.3 mg/dL (8.6-10.3); Carbon Dioxide 23 mEq/L (23-29); Chloride 109 mEq/L (98-107); Glucose 115 mg/dL (70-105); Magnesium 2.1 mg/dL (1.6-2.6); Osmolality,Calculated 295 (280-300); Potassium 3.5 mEq/L (3.5-5.1); Sodium 140 mEq/L (136-145); eGFR For African Americans > 60 (> 60); eGFR For Non-African Americans > 60 (> 60)
[2017-10-12] MEDS: *HR* Heparin 5,000 UNIT/ML VIAL SQ SCH ×2 (05:43→18:01)
[2017-10-12] MEDS ORDERED: Aminoglycoside Consult 1 EACH MC ONE (08:07)
[2017-10-12] MEDS: Aspirin 325 MG TABLET PO SCH (08:47)
[2017-10-12] MEDS: Pantoprazole 40 MG VIAL IVP SCH (08:48)
[2017-10-12] MEDS: Cefepime HCl 2,000 MG in Water for inj. (sterile) 20 ML 20 ML IVP SCH ×2 (08:48→21:13)
--- NOTE | 2017-10-12 10:33 | Internal Med Progress Note ---
<Juarez Payan - Last Filed: 10/12/17 17:38> Date of Encounter: 10/12/17 Time of Encounter: 16:08 - Assessment and plan (1) Pneumonia Current Visit: Yes Status: Acute Assessment and plan: CXR showed a left lower lobe pneumonia. Recent [facility] admission concern for hospital acquired Plan: - Day #3 of Vanco and cefepime for HCAP - Oxygen supportive treatment - Orders to ambulate up to chair - Consult with PT/OT tomorrow consider SNF placement. If so, have SW discuss with patient daughter Qualifiers: Pneumonia type: due to unspecified organism Laterality: left Lung location: lower lobe of lung Qualified Code(s): J18.1 - Lobar pneumonia, unspecified organism (2) Hypokalemia Current Visit: Yes Status: Acute Assessment and plan: Improved 3.5. Plan: - Replace potassium 40 mEq today, will recheck in AM (3) HTN (hypertension) Current Visit: No Status: Acute Assessment and plan: Hydralazine IV when necessary. Closely monitor BP. . Qualifiers: Hypertension type: essential hypertension Qualified Code(s): I10 - Essential (primary) hypertension (4) DVT prophylaxis Current Visit: No Status: Acute Assessment and plan: Heparin subcutaneously - Subjective Interval history: Patient is an 87-year-old male with a past medical history of recent CVA and admission at [facility] presents and this really for respiratory symptoms which included fever, cough and nausea and vomiting. Patient was found to have a pneumonia on chest x-ray and a urinary tract infection. Today the patients blood cultures and urine culture have come back negative. He is continuing on empiric antibiotics for healthcare acquired pneumonia. Patient states that he feels that he is more energetic today and his breathing has improved. Plan today is to ambulate the patient and consult with PT/OT to discuss SNF placement due to patient's weakness from recent hospitalizations and recent stroke. Patient denies any other complaints at this time. 10 System ROS is negative except as stated in HPI. - Constitutional Vitals: Temp Pulse Resp BP Pulse Ox 97.4 F L 60 16 135/67 93 10/12/17 07:07 10/12/17 07:07 10/12/17 07:07 10/12/17 07:07 10/12/17 07:07 General appearance: Present: A&O X 3, pleasant, no acute distress, answers questions appropriately - Head Head exam: Present: atraumatic, normal inspection, normocephalic - Eye Eye exam: Present: normal appearance, PERRL - Neck Neck exam general surgery: Present: normal inspection - Respiratory Respiratory exam: Present: rhonchi (Left sided). Absent: respiratory distress, stridor, wheezes, tachypnea - Cardiovascular Cardiovascular exam: Present: RRR, +S1, +S2 - GI/Abdominal GI/Abdominal exam: Present: normal bowel sounds, soft, no peritoneal signs. Absent: tenderness - Extremities Exam Extremities exam: Present: normal inspection, warm. Absent: pedal edema, tenderness - Back Exam Back exam: Present: normal inspection - Neurological Exam Neurological exam: Present: alert, oriented X3, no focal deficits - Psychiatric Psychiatric exam: Present: normal affect, normal mood - Skin Skin exam: Present: intact, normal color Internal Medicine: Result - Labs CBC & Chem 7: 10/12/17 10:49 10/12/17 03:19 Labs: BMP 10/12/17 03:19 Sodium 140 Potassium 3.5 Chloride 109 H Carbon Dioxide 23 BUN 23 Creatinine 1.14 Glucose 115 H Calcium 8.3 L - ABG Interpretation ABG results: PT/INR, D-dimer PT 13.7 Seconds (9.4-12.1) H 10/10/17 17:27 Consult Discharge Plan - Plan Referrals: Benton Alva MD [Primary Care Provider] - 10/17/17 2:00 pm <Gato Olivaresne - Last Filed: 10/12/17 18:01> Date of Encounter: 10/12/17 - Constitutional Vitals: Temp Pulse Resp BP Pulse Ox 97.7 F 56 16 128/67 96 10/12/17 16:07 10/12/17 16:07 10/12/17 16:07 10/12/17 16:07 10/12/17 16:07 Internal Medicine: Result - Labs CBC & Chem 7: 10/12/17 10:49 10/12/17 03:19 Labs: Short CBC 10/12/17 Range/Units 10:49 WBC 5.1 (4.3-11.1) K/mcL Hgb 12.3 L D (12.9-16.9) g/dL Hct 37.0 L (37.5-50.1) % Plt Count 146 (140-400) K/mcL Neutrophils # 4.0 (1.6-8.9) K/mcL BMP 10/12/17 03:19 Sodium 140 Potassium 3.5 Chloride 109 H Carbon Dioxide 23 BUN 23 Creatinine 1.14 Glucose 115 H Calcium 8.3 L - ABG Interpretation ABG results: PT/INR, D-dimer PT 13.7 Seconds (9.4-12.1) H 10/10/17 17:27 - Attending Attestation I examined this patient and my medical decision-making was reviewed with the Resident Physician. I agree with the documented findings, disposition and treatment plan as described except to the extent set forth below.
[2017-10-12] MEDS ORDERED: Potassium Chloride Elixir 20 MEQ/15 ML UDC PO ONE (10:34)
[2017-10-12 11:19] LABS: Eosinophils # 0.3 K/mcL (0.0-0.6); Mean Corpuscular HGB Conc 33.2 g/dL (31.6-35.5); Mean Corpuscular Volume 90.2 fL (83.0-100.0); Mean Platelet Volume 9.1 fL (9.4-12.4); Platelet Count 146 K/mcL (140-400); Red Cell Distribution Width 14.1 % (11.5-14.5)
[2017-10-12 11:24] LABS: Hemoglobin 12.3 g/dL (12.9-16.9)
[2017-10-12 13:20] LABS: Lymphocytes # 0.6 K/mcL (0.6-4.6); Monocytes # 0.3 K/mcL (0.0-1.3)
[2017-10-12 13:21] LABS: Platelet Estimate Normal (Normal)
[2017-10-13] MEDS: *HR* Heparin 5,000 UNIT/ML VIAL SQ SCH ×2 (05:16→18:18)
[2017-10-13 05:56] LABS: BUN/Creatinine Ratio 21 (6-26); Blood Urea Nitrogen 21 mg/dL (8-23); Calcium 8.7 mg/dL (8.6-10.3); Carbon Dioxide 24 mEq/L (23-29); Chloride 111 mEq/L (98-107); Glucose 135 mg/dL (70-105); Osmolality,Calculated 293 (280-300); Potassium 3.4 mEq/L (3.5-5.1); Sodium 139 mEq/L (136-145); eGFR For African Americans > 60 (> 60); eGFR For Non-African Americans > 60 (> 60)
--- NOTE | 2017-10-13 09:25 | Discharge Summary ---
<Juarez Payan - Last Filed: 10/13/17 12:26> - NOTES TO OUTPATIENT PROVIDER Notes to Outpatient Provider: Patient is to continue the prescribed antibiotics for 7 full days for pneumonia. Patient is being placed for physical rehabiliation due to recent hospitalizations and stroke. Date of Encounter: 10/13/17 Time of Encounter: 09:23 - Discharge Diagnosis (1) Pneumonia Priority: Primary Status: Acute Qualifiers: Pneumonia type: due to unspecified organism Laterality: left Lung location: lower lobe of lung Qualified Code(s): J18.1 - Lobar pneumonia, unspecified organism (2) HTN (hypertension) Priority: Secondary Status: Chronic Qualifiers: Hypertension type: essential hypertension Qualified Code(s): I10 - Essential (primary) hypertension (3) DVT prophylaxis Priority: Secondary Status: Acute (4) Hypokalemia Priority: Secondary Status: Resolved Hospital course: Mr. Flores is a 87 year old male with a past medical history of recent CVA and admission at [facility] presents and this really for respiratory symptoms which included fever, cough and nausea and vomiting. Patient was found to have a pneumonia on chest x-ray and a urinary tract infection. Today the patients blood cultures and urine culture have come back negative. He is continuing on antibiotics for healthcare acquired pneumonia versus aspiration pneumonia. He has completed 3 days of vanc and cefepime. Patient states that he feels that he is more energetic today and his breathing has improved. Patient seen by PT/ OT recommended placement for physical therapy due to recent hospitalizations and stroke. Patient was also evaluated by speech therapy for a swallow evaluation recommend regular diet with thin liquids. Pills to be administered in apple sauce. Follow up with PCP on 10/17/17 for reevaluation. Discharge discussed with: patient, family, social work - Time Spent with Patient Total time spent providing and/or coordinating discharge services: - Discharge Medications Prescriptions: Levofloxacin [Levaquin] 500 mg PO DAILY #7 tablet metroNIDAZOLE [Flagyl] 500 mg PO TID #21 tablet Home Medications: Amlodipine Besylate 10 mg PO DAILY 11/25/15 [History] Chlorthalidone 25 mg PO QAM 11/25/15 [History] Donepezil [Aricept] 10 mg PO HS 11/25/15 [History] Irbesartan [Avapro] 75 mg PO DAILY 11/25/15 [History] Isosorbide MONOnitrate [Isosorbide Mononitrate ER] 120 mg PO DAILY 11/25/15 [ History] Multivit-Min/FA/Lycopen/Lutein [Centrum Silver Tablet] 1 each PO DAILY 11/25/15 [History] Omeprazole [PriLOSEC] 20 mg PO DAILY 11/25/15 [History] Tamsulosin [Flomax] 0.4 mg PO BID 11/25/15 [History] Calcium Carbonate [Calcium] 1,000 mg PO DAILY 07/12/17 [History] Cholecalciferol (D-3) [Vitamin D] 1,000 unit PO DAILY 07/12/17 [History] Aspirin 325 mg PO DAILY 10/10/17 [History] Atorvastatin [Lipitor] 40 mg PO HS 10/10/17 [History] Levofloxacin [Levaquin] 500 mg PO DAILY #7 tablet 10/13/17 [Rx] metroNIDAZOLE [Flagyl] 500 mg PO TID #21 tablet 10/13/17 [Rx] Allergies/Adverse Reactions: 3 Allergy/AdvReac Type Severity Reaction Status Date / Time Amoxicillin Allergy Hives Verified 10/10/17 17:17 azithromycin [From Zithromax] Allergy Rash Verified 10/10/17 17:17 clindamycin Allergy Hives Verified 10/10/17 17:17 Penicillins Allergy Hives Verified 10/10/17 17:17 sulfamethoxazole Allergy Hives Verified 10/10/17 17:17 [From Bactrim] trimethoprim [From Bactrim] Allergy Hives Verified 10/10/17 17:17 Date of admission: 10/11/17 03:52 Primary care physician: Benton Alva MD Consults: 10/12/17 13:58 Consult to [facility] [CONS] Routine Reason for SW Consult: watch for possible ECF placement 10/12/17 14:07 Consult to Occupational Therapy [CONS] Stat Comment: Evaluate, develop and implement POC Reason for Consult: Evaluate for SNF placement; weakness from recent hospital admissions Consult to Physical Therapy [CONS] Stat Comment: Evaluate, develop and implement POC Reason for Consult: evaluate for SNF placement; weakness from recent hospitalizations and stroke. Treated currently for pneumonia Discharging clinician: Gato Olivares Anticipated date of discharge: 10/13/17 - Constitutional Vitals: Temp Pulse Resp BP Pulse Ox 98.5 F 63 16 137/72 91 10/13/17 07:36 10/13/17 07:36 10/13/17 07:36 10/13/17 07:36 10/13/17 07:36 General appearance: Present: A&O X 3, pleasant, no acute distress, answers questions appropriately - Head Head exam: Present: atraumatic, normal inspection, normocephalic - Eye Eye exam: Present: normal appearance, PERRL - Neck Neck exam general surgery: Present: normal inspection - Respiratory Respiratory exam: Present: CTAB. Absent: rales, respiratory distress, rhonchi, wheezes, tachypnea - Cardiovascular Cardiovascular exam: Present: RRR, +S1, +S2 - GI/Abdominal GI/Abdominal exam: Present: normal bowel sounds, soft, no peritoneal signs. Absent: rebound, rigid, tenderness - Extremities Exam Extremities exam: Present: normal inspection, warm. Absent: pedal edema, tenderness - Back Exam Back exam: Present: normal inspection. Absent: tenderness - Neurological Exam Neurological exam: Present: alert, oriented X3, no focal deficits - Psychiatric Psychiatric exam: Present: normal affect, normal mood - Skin Skin exam: Present: intact, warm. Absent: rash - Patient Status Disposition: Transfer Inpatient Rehab Fac Condition: Good Functional capacity at discharge: uses cane/walker Overall status at discharge: patient is progressing back to baseline - Discharge Instructions Follow Up With: Benton Alva MD [Primary Care Provider] - 10/17/17 2:00 pm Additional Instructions: 1. Continue antibiotics as prescribed. 2. Return to the nearest emergency department if you experience any concerning or worsening symptoms such as fever, headache, shortness of breath, chest pain, nausea, vomiting, diarrhea or any other concerning symptoms. 3. Follow up with Dr. Alva on 10/17/17 at 2:00PM - Diet and Activity Activity: as per physical therapy Diet: advance to your usual diet <Gato Olivares - Last Filed: 10/13/17 18:53> Date of Encounter: 10/13/17 Hospital course: Mr. Flores is a 87 year old male - Time Spent with Patient Total time spent providing and/or coordinating discharge services: Date of admission: 10/11/17 03:52 Primary care physician: Benton Alva MD Consults: 10/12/17 13:58 Consult to [facility] [CONS] Routine Reason for SW Consult: watch for possible ECF placement 10/12/17 14:07 Consult to Occupational Therapy [CONS] Stat Comment: Evaluate, develop and implement POC Reason for Consult: Evaluate for SNF placement; weakness from recent hospital admissions Consult to Physical Therapy [CONS] Stat Comment: Evaluate, develop and implement POC Reason for Consult: evaluate for SNF placement; weakness from recent hospitalizations and stroke. Treated currently for pneumonia - Constitutional Vitals: Temp Pulse Resp BP Pulse Ox 97.5 F L 60 16 121/75 92 10/13/17 15:49 10/13/17 15:49 10/13/17 15:49 10/13/17 15:49 10/13/17 15:49 - Attending Attestation I examined this patient and my medical decision-making was reviewed with the Resident Physician. I agree with the documented findings, disposition and treatment plan as described except to the extent set forth below.
[2017-10-13] MEDS: Cefepime HCl 2,000 MG in Water for inj. (sterile) 20 ML 20 ML IVP SCH (10:03)
[2017-10-13] MEDS: Aspirin 325 MG TABLET PO SCH (10:03)
[2017-10-13] MEDS: Pantoprazole 40 MG VIAL IVP SCH (10:03)
--- NOTE | 2017-10-13 17:58 | Internal Med Progress Note ---
<Juarez Payan - Last Filed: 10/13/17 17:55> Date of Encounter: 10/13/17 Time of Encounter: 10:00 - Assessment and plan (1) Pneumonia Current Visit: Yes Status: Acute Assessment and plan: CXR showed a left lower lobe pneumonia. Recent [facility] admission concern for hospital acquired Plan: - Day #3 of Vanco and cefepime for HCAP, will stop and start levaquin and flagyl PO and continue for 7 day course - Oxygen supportive treatment - Orders to ambulate up to chair - Consult with PT/OT plan to transfer. key worker on case, patient pending pre-certification. Qualifiers: Pneumonia type: due to unspecified organism Laterality: left Lung location: lower lobe of lung Qualified Code(s): J18.1 - Lobar pneumonia, unspecified organism (2) HTN (hypertension) Current Visit: No Status: Chronic Assessment and plan: Hydralazine IV when necessary. Closely monitor BP. . Qualifiers: Hypertension type: essential hypertension Qualified Code(s): I10 - Essential (primary) hypertension (3) DVT prophylaxis Current Visit: No Status: Acute Assessment and plan: Heparin subcutaneously - Subjective Interval history: Patient is an 87-year-old male with a past medical history of recent CVA and admission at [facility] presents and this really for respiratory symptoms which included fever, cough and nausea and vomiting. Patient was found to have a pneumonia on chest x-ray and a urinary tract infection. Today the patients blood cultures and urine culture have come back negative. He is continuing on empiric antibiotics for healthcare acquired pneumonia. Patient states that he feels that he is more energetic today and his breathing has improved. Plan today is to ambulate the patient and consult with PT/OT to discuss SNF placement due to patient's weakness from recent hospitalizations and recent stroke. Patient denies any other complaints at this time. 10 System ROS is negative except as stated in HPI. - Constitutional Vitals: Temp Pulse Resp BP Pulse Ox 97.5 F L 60 16 121/75 92 10/13/17 15:49 10/13/17 15:49 10/13/17 15:49 10/13/17 15:49 10/13/17 15:49 General appearance: Present: A&O X 3, pleasant, no acute distress, answers questions appropriately - Head Head exam: Present: atraumatic, normal inspection, normocephalic - Eye Eye exam: Present: normal appearance, PERRL - Neck Neck exam general surgery: Present: normal inspection - Respiratory Respiratory exam: Present: CTAB. Absent: rales, rhonchi, stridor, wheezes - Cardiovascular Cardiovascular exam: Present: RRR, +S1, +S2 - GI/Abdominal GI/Abdominal exam: Present: normal bowel sounds, soft, no peritoneal signs. Absent: tenderness - Extremities Exam Extremities exam: Present: normal capillary refill, normal inspection, warm. Absent: tenderness - Back Exam Back exam: Present: normal inspection. Absent: tenderness - Neurological Exam Neurological exam: Present: alert, oriented X3, no focal deficits - Psychiatric Psychiatric exam: Present: normal affect, normal mood - Skin Skin exam: Present: intact, normal color, warm Internal Medicine: Result - Labs CBC & Chem 7: 10/12/17 10:49 10/13/17 05:27 Labs: BMP 10/13/17 05:27 Sodium 139 Potassium 3.4 L Chloride 111 H Carbon Dioxide 24 BUN 21 Creatinine 1.00 Glucose 135 H Calcium 8.7 - ABG Interpretation ABG results: PT/INR, D-dimer PT 13.7 Seconds (9.4-12.1) H 10/10/17 17:27 Consult Discharge Plan - Plan Additional Instructions: 1. Continue antibiotics as prescribed. 2. Return to the nearest emergency department if you experience any concerning or worsening symptoms such as fever, headache, shortness of breath, chest pain, nausea, vomiting, diarrhea or any other concerning symptoms. 3. Follow up with Dr. Alva on 10/17/17 at 2:00PM Referrals: Benton Alva MD [Primary Care Provider] - 10/17/17 2:00 pm Prescriptions: Levofloxacin [Levaquin] 500 mg PO DAILY #7 tablet metroNIDAZOLE [Flagyl] 500 mg PO TID #21 tablet <Gato Olivares - Last Filed: 10/13/17 18:44> Date of Encounter: 10/13/17 - Constitutional Vitals: Temp Pulse Resp BP Pulse Ox 97.5 F L 60 16 121/75 92 10/13/17 15:49 10/13/17 15:49 10/13/17 15:49 10/13/17 15:49 10/13/17 15:49 Internal Medicine: Result - Labs CBC & Chem 7: 10/12/17 10:49 10/13/17 05:27 Labs: BMP 10/13/17 05:27 Sodium 139 Potassium 3.4 L Chloride 111 H Carbon Dioxide 24 BUN 21 Creatinine 1.00 Glucose 135 H Calcium 8.7 - ABG Interpretation ABG results: PT/INR, D-dimer PT 13.7 Seconds (9.4-12.1) H 10/10/17 17:27 - Attending Attestation I examined this patient and my medical decision-making was reviewed with the Resident Physician. I agree with the documented findings, disposition and treatment plan as described except to the extent set forth below.
[2017-10-13] MEDS ORDERED: levoFLOXacin 750 MG TABLET PO SCH (21:00)
[2017-10-13] MEDS: metroNIDAZOLE 500 MG TABLET PO SCH (21:05)
[2017-10-14] MEDS: *HR* Heparin 5,000 UNIT/ML VIAL SQ SCH (05:44)
[2017-10-14] MEDS: Pantoprazole 40 MG VIAL IVP SCH (09:07)
[2017-10-14] MEDS: metroNIDAZOLE 500 MG TABLET PO SCH ×2 (09:07→14:29)
[2017-10-14] MEDS: Aspirin 325 MG TABLET PO SCH (09:07)
--- NOTE | 2017-10-14 15:20 | Electrocardiograph Report ---
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
[2017-10-14 15:54] VITALS: BP 134/73
--- NOTE | 2017-10-14 17:40 | Internal Med Progress Note ---
<Juarez Payan - Last Filed: 10/14/17 18:03> Date of Encounter: 10/14/17 Time of Encounter: 18:03 - Assessment and plan (1) Pneumonia Status: Acute Assessment and plan: CXR showed a left lower lobe pneumonia. Recent [facility] admission concern for hospital acquired Plan: - Day #2 of Levaquin and Flagyl out of 7. - Oxygen supportive treatment - Orders to ambulate up to chair - Consult with PT/OT plan to transfer. prop worker on case, patient pending pre-certification. Qualifiers: Pneumonia type: due to unspecified organism Laterality: left Lung location: lower lobe of lung Qualified Code(s): J18.1 - Lobar pneumonia, unspecified organism (2) HTN (hypertension) Status: Chronic Assessment and plan: Hydralazine IV when necessary. Closely monitor BP. . Qualifiers: Hypertension type: essential hypertension Qualified Code(s): I10 - Essential (primary) hypertension (3) DVT prophylaxis Status: Acute Assessment and plan: Heparin subcutaneously - Subjective Interval history: Patient is an 87-year-old male with a past medical history of recent CVA and admission at [facility] presents and this really for respiratory symptoms which included fever, cough and nausea and vomiting. Patient was found to have a pneumonia on chest x-ray and a urinary tract infection. Today the patients blood cultures and urine culture have come back negative. He is continuing on empiric antibiotics for healthcare acquired pneumonia. Patient states that he feels that he is more energetic today and his breathing has improved. Plan today is to ambulate the patient and consult with PT/OT to discuss SNF placement due to patient's weakness from recent hospitalizations and recent stroke. Patient denies any other complaints at this time. Patient is doing well today we are waiting for discharge which is being held up by prior authorization for a swing bed. 10 System ROS is negative except as stated in HPI. - Constitutional Vitals: Temp Pulse Resp BP Pulse Ox 97.9 F 57 16 134/73 95 10/14/17 15:53 10/14/17 15:53 10/14/17 15:53 10/14/17 15:53 10/14/17 15:53 General appearance: Present: A&O X 3, pleasant, no acute distress, answers questions appropriately Exam: Patient was up ambulating today doing well. No acute distress on exam. - Head Head exam: Present: atraumatic, normal inspection, normocephalic - Eye Eye exam: Present: normal appearance, PERRL - Neck Neck exam general surgery: Present: normal inspection - Respiratory Respiratory exam: Present: CTAB. Absent: rales, rhonchi, wheezes - Cardiovascular Cardiovascular exam: Present: RRR, +S1, +S2 - GI/Abdominal GI/Abdominal exam: Present: normal bowel sounds, soft, no peritoneal signs. Absent: tenderness - Extremities Exam Extremities exam: Present: normal inspection, warm. Absent: tenderness - Back Exam Back exam: Present: normal inspection - Neurological Exam Neurological exam: Present: normal gait, oriented X3, no focal deficits - Psychiatric Psychiatric exam: Present: normal affect, normal mood - Skin Skin exam: Present: intact, rash, warm Internal Medicine: Result - Labs CBC & Chem 7: 10/12/17 10:49 10/13/17 05:27 - ABG Interpretation ABG results: PT/INR, D-dimer PT 13.7 Seconds (9.4-12.1) H 10/10/17 17:27 Consult Discharge Plan - Plan Additional Instructions: 1. Continue antibiotics as prescribed. 2. Return to the nearest emergency department if you experience any concerning or worsening symptoms such as fever, headache, shortness of breath, chest pain, nausea, vomiting, diarrhea or any other concerning symptoms. 3. Follow up with Dr. Alva on 10/17/17 at 2:00PM Referrals: Benton Alva MD [Primary Care Provider] - 10/17/17 2:00 pm Prescriptions: Levofloxacin [Levaquin] 500 mg PO DAILY #7 tablet metroNIDAZOLE [Flagyl] 500 mg PO TID #21 tablet <Gato Olivares - Last Filed: 10/14/17 18:51> Date of Encounter: 10/14/17 - Constitutional Vitals: Temp Pulse Resp BP Pulse Ox 97.9 F 57 16 134/73 95 10/14/17 15:53 10/14/17 15:53 10/14/17 15:53 10/14/17 15:53 10/14/17 15:53 Internal Medicine: Result - Labs CBC & Chem 7: 10/12/17 10:49 10/13/17 05:27 - ABG Interpretation ABG results: PT/INR, D-dimer PT 13.7 Seconds (9.4-12.1) H 10/10/17 17:27 - Attending Attestation I examined this patient and my medical decision-making was reviewed with the Resident Physician. I agree with the documented findings, disposition and treatment plan as described except to the extent set forth below. He will need to stay the next two days pending Authorization of DC location.
== END 2017-10-14 17:26 | DRG 195 ==
LOC: EMEROO 17:00 → 3BNU 17:00
PROVIDERS: ADMIT Registered Nurse; ATTEND Registered Nurse

== ENCOUNTER 2018-02-03 18:59 | Observation (INO) ==
[2018-02-03] MEDS ORDERED: *HR* FentaNYL (PF) 100 MCG/2 ML VIAL IVP ONE ×2 (19:11→20:13)
--- NOTE | 2018-02-03 19:15 | Emergency Department Note ---
Disposition Clinical Impression: Hip dislocation, right Qualifiers: Encounter type: initial encounter Qualified Code(s): S73.004A - Unspecified dislocation of right hip, initial encounter Disposition: Admitted As Inpatient Condition: Fair General Adult HPI - General Chief complaint: ED Extremity Injury, Lower Stated complaint: right hip pain Time Seen by Provider: 02/03/18 19:08 Source: patient, EMS Mode of arrival: EMS Limitations: no limitations Nursing Notes Reviewed: Yes Vital Signs Reviewed: Yes - History of Present Illness HPI Narrative: Patient is a 87-year-old male with a past medical history of right hip replacement, CVA, HLD presents to the emergency department by squad for evaluation of his right hip. The patient states that prior to arrival he was sitting on his bed and he brought his right leg up over his knee to tie his shoe and he felt a pop in his right hip with sudden onset of pain. He states since that time his pain has been continuous and that this feels similar to when he has dislocated his right hip in the past back in September,. He denies any numbness or tingling in the right lower extremity. He is unable to move his hip secondary to pain. Denies any fall or injury. No LOC. States that he called 911 from his bed and they came to pick him up and has been unable to move his right leg since because of the pain. Takes an aspirin daily otherwise on no blood thinners. States his [place] [address] Pollard. Pain Scale: 5 - Related Data Home Medications Medication Instructions Recorded Confirmed Amlodipine Besylate 10 mg PO DAILY 11/25/15 02/03/18 Chlorthalidone 25 mg PO QAM 11/25/15 02/03/18 Donepezil [Aricept] 10 mg PO HS 11/25/15 02/03/18 Irbesartan [Avapro] 75 mg PO DAILY 11/25/15 02/03/18 Isosorbide MONOnitrate [Isosorbide 120 mg PO DAILY 11/25/15 02/03/18 Mononitrate ER] Multivit-Min/FA/Lycopen/Lutein 1 each PO DAILY 11/25/15 02/03/18 [Centrum Silver Tablet] Omeprazole [PriLOSEC] 20 mg PO DAILY 11/25/15 02/03/18 Tamsulosin [Flomax] 0.4 mg PO BID 11/25/15 02/03/18 Calcium Carbonate [Calcium] 1,000 mg PO DAILY 07/12/17 02/03/18 Cholecalciferol (D-3) [Vitamin D] 1,000 unit PO DAILY 07/12/17 02/03/18 Aspirin 325 mg PO DAILY 10/10/17 02/03/18 Atorvastatin [Lipitor] 40 mg PO HS 10/10/17 02/03/18 Allergies Allergy/AdvReac Type Severity Reaction Status Date / Time Amoxicillin Allergy Hives Verified 10/10/17 17:17 azithromycin [From Zithromax] Allergy Rash Verified 10/10/17 17:17 clindamycin Allergy Hives Verified 10/10/17 17:17 Penicillins Allergy Hives Verified 10/10/17 17:17 sulfamethoxazole Allergy Hives Verified 10/10/17 17:17 [From Bactrim] trimethoprim [From Bactrim] Allergy Hives Verified 10/10/17 17:17 All systems ED: reviewed and negative except as stated. Review of Systems: As Per HPI Constitutional: Denies: fever, chills, weakness Cardiovascular: Denies: chest pain, palpitations Respiratory: Denies: cough, dyspnea, wheezes Musculoskeletal: Denies: back pain, neck pain Integumentary: Denies: rash, abrasion Neurological: Denies: headache, weakness Past Medical History - Past Medical History Attestation: Yes The following information was validated with the patient. Medical history: Reports: non-contributory, CVA, hyperlipidemia Surgical history: Reports: orthopedic, other Psychiatric history: Reports: no psych history - Social History Smoking Status: Never smoker Smokeless Tobacco Status: No Alcohol use: Reports: rarely Drug use: Reports: none Physical Exam CONSTITUTIONAL: Alert and oriented X3, well-nourished, well appearing, in no apparent distress. Vital signs are stable. Patient appears to be in no distress except for when his right leg is moved than his pain appears severe. HEAD: Normocephalic; atraumatic. EYES: PERRL, no scleral icterus. NOSE: The nose is normal in appearance without rhinorrhea RESP: Normal chest excursion with respiration; breath sounds clear and equal bilaterally; no wheezes, rhonchi, or rales CARD: Regular rhythm, without murmurs, rub or gallop ABD: Non-distended; non-tender, soft,without rigidity, rebound or guarding EXT: Right leg is shortened compared to the left. Normal sensation. 2+ posterior tibialis and dorsalis pedis. Limited ROM of right hip secondary to pain. SKIN: Normal for age and race; warm and dry; no apparent lesions - General General appearance: alert, in no apparent distress Course Course Narrative: Plan at this time is to treat the patient's pain as well as order a right hip x- ray to evaluate for fracture versus dislocation. There does not appear to be a neurovascular injury at this time. - Reevaluation(s) Reevaluation #1: Patient underwent procedural sedation with propofol. Four attempts were made to reduce the right hip and was unsuccessful. Initial imaging in between reductions showed the head of the femur inferior to the joint socket. Final attempt the head of femur appears to be in line with socket on AP view, however not on lateral view. Repeat films are ordered. Patient has 2+ pulses in RLE. Time: 22:00 Vital Signs Temperature 98.6 F 02/03/18 19:02 Pulse Rate 67 02/03/18 19:02 Respiratory Rate 16 02/03/18 19:02 Blood Pressure 146/75 02/03/18 19:02 O2 Sat by Pulse Oximetry 98 02/03/18 19:02 Temperature 97.7 F 02/04/18 03:59 Pulse Rate 55 02/04/18 03:59 Respiratory Rate 14 02/04/18 03:59 Blood Pressure 180/73 02/04/18 03:59 O2 Sat by Pulse Oximetry 97 02/04/18 03:59 Oxygen Delivery Oxygen Delivery [2207] Nasal Cannula Oxygen Delivery [220] Nasal Cannula Oxygen Delivery [2158] Nasal Cannula Oxygen Delivery [2152] Nasal Cannula Oxygen Delivery [2148] Nasal Cannula Oxygen Delivery [2146] Nasal Cannula Oxygen Delivery [2142] Nasal Cannula Oxygen Delivery [2138] Nasal Cannula Oxygen Delivery [2134] Nasal Cannula Oxygen Delivery Nasal Cannula Procedures - Procedural Sedation Indication: fracture/dislocation reduction Dietary Status: No solid food in preceding 4 hrs and no liquid in preceding 2 hrs H&P (including ROS) documented in medical record: Yes Previous reaction to sedatives/anesthetics: No Dentition: No loose teeth or bridges Airway Assessment: Patient can open mouth completely, TMJ function normal Possible difficult airway: No ASA Classification: CLASS III-Severe systemic disease Plan of Care: Pt appropriate candidate for procedure/moderate/conscious sedation , Risks/benefits of procedure/sedation discussed w/ patient/family Preparation: radiographer cardiac catheterization applied, pulse oximeter, capnometry used, supplemental O2 applied, reversal agents at bedside, suction/airway equipment at bedside, IV secured Fentanyl: IV IV Propofol Dose (mgs): 200 Patient Tolerated Procedure: well Complications: none Medical Decision Making - Medical Records Medical records reviewed: Yes I reviewed the patient's medical records. - Lab Data Lab results reviewed: Yes I reviewed the patient's lab results. Result diagrams: 02/04/18 02:57 02/04/18 02:57 - Radiology Data Radiology results reviewed: Yes I reviewed the patient's radiology results. 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 D/ / Abimael Batista / Abimael Batista Interpreting Provider: Abimael Batista Attestation Statement - Attestation Attestation: I examined this patient and my medical decision-making was reviewed with the Resident Physician. I agree with the documented findings, disposition and treatment plan as described except to the extent set forth below. Findings consistent with a dislocated prosthetic hip. Conscious sedation was performed. There are multiple providers at bedside and multiple attempts were made to get the hip back in place utilizing various procedures including the captain Mandeep technique however the hip seems to keep sliding out of the prostheses. We will consult orthopedics and admit for further management. The patient will go to the operating room for surgical reduction.
[2018-02-03] MEDS ORDERED: *HR* Propofol 500 MG/50 ML BOTTLE IVP ONE (20:09)
[2018-02-03] MEDS ORDERED: 0.9 % Sodium Chloride 1,000 ML IVC ONE (21:21)
[2018-02-03] MEDS ORDERED: 0.9 % Sodium Chloride 1,000 ML ONE (21:25)
[2018-02-03] MEDS ORDERED: *HR* Nalbuphine 10 MG/ML AMPUL IV STA (22:46)
--- NOTE | 2018-02-03 23:45 | Internal Med History&Physical ---
Date of Encounter: 02/04/18 Time of Encounter: 23:45 Internal Medicine - H&P: HPI Chief complaint: right hip pain History of present illness: Mr. Flores is a 87 year old male with a past medical history of right hip replacement, CVA, HLD presents to the emergency department by squad for evaluation of his right hip. The patient states that prior to arrival he was sitting on his bed and he brought his right leg up over his knee to tie his shoe and he felt a pop in his right hip with sudden onset of pain. several attempts to to reposition the dislocated hip but was unsuccessful, surgery was consulted for further evaluation and management. 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 hernia repair - Social History Smoking Status: Never smoker Smokeless Tobacco Status: No Alcohol use: rarely Drug use: none - Family History Father Living Status: Hx Family Cardiac Disorders: No Hx Family Respiratory Disorders: No Hx Family Cancer: (leukemia) Hx Family GI Disorders: No Hx Family Endocrine Disorder: No Hx Family Neuromuscular Disorders: No Hx Family Neurologic Disorders: No Hx Family HEENT Disorders: No Hx Family Autoimmune Disorders: No Mother Living Status: Hx Family Cardiac Disorders: No Hx Family Respiratory Disorders: No Hx Family Cancer: No Hx Family GI Disorders: No Hx Family Endocrine Disorder: No Hx Family Neuromuscular Disorders: No Hx Family Neurologic Disorders: No Hx Family HEENT Disorders: No Hx Family Autoimmune Disorders: No Son Living Status: Internal Medicine - H&P: Meds Amlodipine Besylate 10 mg PO DAILY 11/25/15 [History] Chlorthalidone 25 mg PO QAM 11/25/15 [History] Donepezil [Aricept] 10 mg PO HS 11/25/15 [History] Irbesartan [Avapro] 75 mg PO DAILY 11/25/15 [History] Isosorbide MONOnitrate [Isosorbide Mononitrate ER] 120 mg PO DAILY 11/25/15 [ History] Multivit-Min/FA/Lycopen/Lutein [Centrum Silver Tablet] 1 each PO DAILY 11/25/15 [History] Omeprazole [PriLOSEC] 20 mg PO DAILY 11/25/15 [History] Tamsulosin [Flomax] 0.4 mg PO BID 11/25/15 [History] Calcium Carbonate [Calcium] 1,000 mg PO DAILY 07/12/17 [History] Cholecalciferol (D-3) [Vitamin D] 1,000 unit PO DAILY 07/12/17 [History] Aspirin 325 mg PO DAILY 10/10/17 [History] Atorvastatin [Lipitor] 40 mg PO HS 10/10/17 [History] 3 Allergy/AdvReac Type Severity Reaction Status Date / Time Amoxicillin Allergy Hives Verified 10/10/17 17:17 azithromycin [From Zithromax] Allergy Rash Verified 10/10/17 17:17 clindamycin Allergy Hives Verified 10/10/17 17:17 Penicillins Allergy Hives Verified 10/10/17 17:17 sulfamethoxazole Allergy Hives Verified 10/10/17 17:17 [From Bactrim] trimethoprim [From Bactrim] Allergy Hives Verified 10/10/17 17:17 All Systems PM: A 10-system review of systems was performed and is negative for pertinent findings except as documented above in the HPI. - Constitutional Constitutional: no chills, no fever(s), no night sweats - Cardiovascular Cardiovascular ROS IM: no chest pain, no diaphoresis, no dyspnea, no lightheadedness, no palpitations, no syncope - Respiratory Respiratory: no cough, no dyspnea, no wheezing, no excessive phlegm production - Gastrointestinal Gastrointestinal: no abdominal pain, no diarrhea, no hematemesis, no hematochezia, no melena, no nausea, no vomiting - Musculoskeletal Musculoskeletal ROS IM: as per HPI - Neurological Neurological ROS: no confusion, no convulsions, no focal weakness, no numbness, no tingling, no tremor(s) - Constitutional Vitals: Temp Pulse Resp BP Pulse Ox 98.6 F 66 16 156/88 96 02/03/18 19:02 02/03/18 23:30 02/03/18 23:30 02/03/18 23:30 02/03/18 23:30 Internal Med - H&P Results - Labs CBC & Chem 7: 02/04/18 02:57 02/04/18 02:57 - Assessment and plan (1) Dislocation of hip joint prosthesis Current Visit: No Status: Acute Assessment and plan: several attempts to to reposition the dislocated hip but was unsuccessful, surgery was consulted for further evaluation and management Qualifiers: (2) HTN (hypertension) Current Visit: No Status: Chronic Qualifiers: Hypertension type: essential hypertension Qualified Code(s): I10 - Essential (primary) hypertension (3) BPH (benign prostatic hyperplasia) Current Visit: No Status: Acute Qualifiers: Lower urinary tract symptom presence: symptoms present (4) GERD (gastroesophageal reflux disease) Current Visit: No Status: Acute Qualifiers: Esophagitis presence: esophagitis presence not specified Qualified Code(s) : K21.9 - Gastro-esophageal reflux disease without esophagitis (5) Dementia Current Visit: No Status: Acute Qualifiers: Dementia type: unspecified type (6) DVT prophylaxis Current Visit: No Status: Acute - Time Spent With Patient Total time spent is greater than 50% in coordination of care (as documented) at patient's floor/unit and/or counseling patient:
[2018-02-04] MEDS ORDERED: Naloxone 0.4 MG/ML INJ IVP PRN ×2 (01:52→11:36)
[2018-02-04] MEDS ORDERED: Acetaminophen 325 MG TABLET PO PRN ×2 (01:52→11:36)
[2018-02-04] MEDS ORDERED: *HR* HYDROcodone/Acet 5/325 mg TABLET PO PRN ×2 (01:52→11:36)
[2018-02-04] MEDS ORDERED: 0.9 % Sodium Chloride 1,000 ML IVC SCH (02:00)
[2018-02-04 03:09] LABS: Basophils % 0.3 %; Eosinophils % 0.1 %; Hematocrit 37.9 % (37.5-50.1); Immature Granulocytes % 0.3 % (0-4); Immature Platelets 0.8 % (1.1-6.1); Lymphocytes # 0.8 K/mcL (0.6-4.6); Lymphocytes % 9.3 %; Mean Corpuscular HGB Conc 34.3 g/dL (31.6-35.5); Mean Corpuscular Volume 90.5 fL (83.0-100.0); Mean Platelet Volume 8.5 fL (9.4-12.4); Monocytes # 0.7 K/mcL (0.0-1.3); Monocytes % 7.2 %; Neutrophils # 7.5 K/mcL (1.6-8.9); Platelet Count 239 K/mcL (140-400); Red Blood Count 4.19 M/mcL (4.19-5.50); Segmented Neutrophils % 82.8 %
[2018-02-04 03:27] LABS: Magnesium 1.7 mg/dL (1.6-2.6); Phosphorous 3.2 mg/dL (2.7-4.5)
[2018-02-04 03:28] LABS: Alanine Aminotransferase 12 Units/L (7-52); Albumin 3.9 g/dL (3.5-5.7); Albumin/Globulin Ratio 1.7 (1.1-2.2); Alkaline Phosphatase 72 Units/L (34-104); Aspartate Amino Transferase 16 Units/L (13-39); BUN/Creatinine Ratio 14 (6-26); Bilirubin,Total 0.5 mg/dL (0.3-1.0); Blood Urea Nitrogen 14 mg/dL (8-23); Calcium 8.9 mg/dL (8.6-10.3); Carbon Dioxide 28 mEq/L (23-29); Chloride 105 mEq/L (98-107); Chol/HDL Ratio 2.6 (0-4.9); Cholesterol 132 mg/dL (< 200); Globulin 2.3 g/dL (2.4-3.5); Glucose 168 mg/dL (70-105); HDL Cholesterol 50 mg/dL (40-59); INR 1.1; LDL Cholesterol,Calculated 73 mg/dL (0-99); Osmolality,Calculated 294 (280-300); Potassium 3.3 mEq/L (3.5-5.1); Prothrombin Time 12.4 Seconds (9.4-12.1); Sodium 140 mEq/L (136-145); Total Protein 6.2 g/dL (6.4-8.9); Triglycerides 46 mg/dL (< 150); eGFR For African Americans > 60 (> 60); eGFR For Non-African Americans > 60 (> 60)
--- NOTE | 2018-02-04 07:30 | Orthopedic Consult Note ---
Date of Encounter: 02/04/18 Time of Encounter: 07:28 Assessment and Plan (1) Hip dislocation, right Current Visit: Yes Status: Acute I discussed the diagnosis in detail with the patient. The patient has a prosthetic right hip dislocation. My recommendation was for closed reduction in the operating room. The risks discussed included but were not limited to stiffness, bleeding, infection, blood clots, damage to neurovascular structures , tendons, ligaments, and bone. Also discussed was the risk of continued symptoms and possible need for further procedures. I did discuss the anesthesia risks including stroke, heart attack, and . I did discuss the reasonable, foreseeable postoperative course. He is aware the risk of fracture as well as the risk of persistent dislocation. He did wish to proceed and consent was obtained. Qualifiers: Encounter type: initial encounter Qualified Code(s): S73.004A - Unspecified dislocation of right hip, initial encounter History of Present Illness HPI: Mr. Flores is a 87 year old male. 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 Most recent was back in October. He has not had any issue since. The patient was sitting in bed and bent over to take off his sock when he felt his right hip dislocated. He is seen in the emergency department where attempts were made by the emergency department staff reduction which were unsuccessful. He was therefore admitted to the hospitalist for closed reduction in the operating room by myself. The patient complains of isolated pain in the right hip. It is worse with any movement and better with rest. No numbness, tingling, or any other associated signs or symptoms or modifying factors. 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 hernia repair - Social History Smoking Status: Never smoker Smokeless Tobacco Status: No Alcohol use: rarely Drug use: none - Family History Father Living Status: Cause of : "blood disease" Hx Family Cardiac Disorders: No Hx Family Respiratory Disorders: No Hx Family Cancer: (leukemia) Hx Family GI Disorders: No Hx Family Endocrine Disorder: No Hx Family Neuromuscular Disorders: No Hx Family Neurologic Disorders: No Hx Family HEENT Disorders: No Hx Family Autoimmune Disorders: No Mother Living Status: Hx Family Cardiac Disorders: No Hx Family Respiratory Disorders: No Hx Family Cancer: No Hx Family GI Disorders: No Hx Family Endocrine Disorder: No Hx Family Neuromuscular Disorders: No Hx Family Neurologic Disorders: No Hx Family HEENT Disorders: No Hx Family Autoimmune Disorders: No Son Living Status: Medications and Allergies Amlodipine Besylate 10 mg PO DAILY 11/25/15 [History] Chlorthalidone 25 mg PO QAM 11/25/15 [History] Donepezil [Aricept] 10 mg PO HS 11/25/15 [History] Irbesartan [Avapro] 75 mg PO DAILY 11/25/15 [History] Isosorbide MONOnitrate [Isosorbide Mononitrate ER] 120 mg PO DAILY 11/25/15 [ History] Multivit-Min/FA/Lycopen/Lutein [Centrum Silver Tablet] 1 each PO DAILY 11/25/15 [History] Omeprazole [PriLOSEC] 20 mg PO DAILY 11/25/15 [History] Tamsulosin [Flomax] 0.4 mg PO BID 11/25/15 [History] Calcium Carbonate [Calcium] 1,000 mg PO DAILY 07/12/17 [History] Cholecalciferol (D-3) [Vitamin D] 1,000 unit PO DAILY 07/12/17 [History] Aspirin 325 mg PO DAILY 10/10/17 [History] Atorvastatin [Lipitor] 40 mg PO HS 10/10/17 [History] 3 Allergy/AdvReac Type Severity Reaction Status Date / Time Amoxicillin Allergy Hives Verified 10/10/17 17:17 azithromycin [From Zithromax] Allergy Rash Verified 10/10/17 17:17 clindamycin Allergy Hives Verified 10/10/17 17:17 Penicillins Allergy Hives Verified 10/10/17 17:17 sulfamethoxazole Allergy Hives Verified 10/10/17 17:17 [From Bactrim] trimethoprim [From Bactrim] Allergy Hives Verified 10/10/17 17:17 All Systems Reviewed: Constitutional and musculoskeletal systems were reviewed and are negative unless otherwise stated in history of present illness. Physical Exam - Constitutional Vitals: Temp Pulse Resp BP Pulse Ox 97.6 F 60 16 172/75 97 02/04/18 06:48 02/04/18 06:48 02/04/18 06:48 02/04/18 06:48 02/04/18 06:48 Constitutional -Vitals reviewed -The patient is well developed and well nourished. -Mood is pleasant. -The patient is well groomed. Psychiatric -The patient is fully alert and oriented x 3. Respiratory: -Respiratory effort normal Abdomen: -Soft abdomen -Non tender -Non distended: Left upper extremity: -No deformities. The overlying skin is intact. No obvious signs of acute trauma. -No tenderness to palpation throughout. -No significant pain with passive motion of the shoulder, elbow, wrist, and fingers within the limits of the bed. -Able to make an "OK" sign, cross the index and long fingers, and extend the thumb. -Sensation grossly intact to light touch throughout the median, radial, and ulnar distributions. -Radial pulse is present; Fingers have good capillary refill. Right upper extremity: -No deformities. The overlying skin is intact. No obvious signs of acute trauma. -No tenderness to palpation throughout. -No significant pain with passive motion of the shoulder, elbow, wrist, and fingers within the limits of the bed. -Able to make an "OK" sign, cross the index and long fingers, and extend the thumb. -Sensation grossly intact to light touch throughout the median, radial, and ulnar distributions. -Radial pulse is present; Fingers have good capillary refill. Left lower extremity: -No deformities. The overlying skin is intact. No obvious signs of acute trauma. -No tenderness to palpation throughout. -No pain with passive motion of the hip, knee, ankle, and toes within the limits of the bed. -No pain with axial loading of the thigh. -Able to dorsiflex and plantarflex the ankle and toes. -Sensation is grossly intact to light touch throughout the sural, saphenous, superficial peroneal, and deep peroneal distributions. -Toes have good capillary refill. Right lower extremity: -The extremity is shortened and internally rotated. The overlying skin is intact. -There is tenderness in the groin region as well as the proximal lateral thigh. -I did not range the hip due to the known dislocation. -No tenderness along the distal thigh, leg, ankle, foot, or toes. -Able to dorsiflex and plantarflex the ankle and toes. -Sensation is grossly intact to light touch throughout the sural, saphenous, superficial peroneal, and deep peroneal distributions. -Toes have good capillary refill. Diagnostic Imaging: I did personally review and interpret x-rays of the right hip show a prosthetic dislocation, posterior in nature and similar to prior dislocations. Results - Labs Result Diagrams: 02/04/18 02:57 02/04/18 02:57 Labs: Abnormal lab results MPV 8.5 fL (9.4-12.4) L 02/04/18 02:57 Immature Plt Fraction 0.8 % (1.1-6.1) L 02/04/18 02:57 PT 12.4 Seconds (9.4-12.1) H 02/04/18 02:57 Potassium 3.3 mEq/L (3.5-5.1) L 02/04/18 02:57 Glucose 168 mg/dL (70-105) H 02/04/18 02:57 Serum Total Protein 6.2 g/dL (6.4-8.9) L 02/04/18 02:57 Globulin 2.3 g/dL (2.4-3.5) L 02/04/18 02:57 H & H 02/04/18 Range/Units 02:57 Hgb 13.0 (12.9-16.9) g/dL Hct 37.9 (37.5-50.1) % All other labs normal. Consult Discharge Plan - Plan Referrals: Benton Alva MD [Primary Care Provider] -
[2018-02-04] MEDS ORDERED: Isosorbide MONOnitrate (24 HR) 60 MG TAB.ER.24H PO SCH (09:00)
[2018-02-04] MEDS ORDERED: Aspirin 325 MG TABLET PO SCH (09:00)
[2018-02-04] MEDS ORDERED: Cholecalciferol (D-3) 1,000 UNIT TABLET PO SCH (09:00)
[2018-02-04] MEDS ORDERED: amLODIPine 5 MG TABLET PO SCH (09:00)
[2018-02-04] MEDS ORDERED: Multivit/Ca/Min/Fe/FA 1 TAB TABLET PO SCH (09:00)
--- NOTE | 2018-02-04 10:26 | Anesthesia Evaluation PreOp ---
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: CVA, Other (Dementia/Alzheimers) Other Medical History: Denies Any Significant HX Anesthesia History: No Prior Anesthetic Complications Alcohol Use: rarely Drug use: none Medications and Allergies Amlodipine Besylate 10 mg PO DAILY 11/25/15 [History] Chlorthalidone 25 mg PO QAM 11/25/15 [History] Donepezil [Aricept] 10 mg PO HS 11/25/15 [History] Irbesartan [Avapro] 75 mg PO DAILY 11/25/15 [History] Isosorbide MONOnitrate [Isosorbide Mononitrate ER] 120 mg PO DAILY 11/25/15 [ History] Multivit-Min/FA/Lycopen/Lutein [Centrum Silver Tablet] 1 each PO DAILY 11/25/15 [History] Omeprazole [PriLOSEC] 20 mg PO DAILY 11/25/15 [History] Tamsulosin [Flomax] 0.4 mg PO BID 11/25/15 [History] Calcium Carbonate [Calcium] 1,000 mg PO DAILY 07/12/17 [History] Cholecalciferol (D-3) [Vitamin D] 1,000 unit PO DAILY 07/12/17 [History] Aspirin 325 mg PO DAILY 10/10/17 [History] Atorvastatin [Lipitor] 40 mg PO HS 10/10/17 [History] 3 Allergy/AdvReac Type Severity Reaction Status Date / Time Amoxicillin Allergy Hives Verified 10/10/17 17:17 azithromycin [From Zithromax] Allergy Rash Verified 10/10/17 17:17 clindamycin Allergy Hives Verified 10/10/17 17:17 Penicillins Allergy Hives Verified 10/10/17 17:17 sulfamethoxazole Allergy Hives Verified 10/10/17 17:17 [From Bactrim] trimethoprim [From Bactrim] Allergy Hives Verified 10/10/17 17:17 - Meds/Allergy Pre-op Review Medications Reviewed: Yes Allergies Reviewed: Yes Beta Blockers on Current Med List: No Anesthesia Results - Labs 02/04/18 02:57 02/04/18 02:57 - Imaging EKG: report reviewed (Demand Pacemaker) Anesthesia Exam O2 Sat Height 1.8 m Height 1.8 m Weight 77 kg Weight 77.564 kg O2 Sat by Pulse Oximetry 97 O2 Sat by Pulse Oximetry 97 O2 Sat by Pulse Oximetry 95 O2 Sat by Pulse Oximetry 96 O2 Sat by Pulse Oximetry 97 O2 Sat by Pulse Oximetry 98 O2 Sat by Pulse Oximetry 93 O2 Sat by Pulse Oximetry 96 O2 Sat by Pulse Oximetry 98 Vital Signs Temp Pulse Resp BP Pulse Ox 98.6 F 67 16 146/75 98 02/03/18 19:02 02/03/18 19:02 02/03/18 19:02 02/03/18 19:02 02/03/18 19:02 Height: 5'11 Weight: 169 lbs NPO (# of Hours): MN Pain Scale: 0 - HEENT Pupil (Motor): Pupils equal, EOMI Mallampati: III Teeth: Missing Oral Opening: Greater than 3 - BLUEPRINTER LOC: Oriented BLUEPRINTER Motor: Normal RUE, Normal LUE, Normal RLE, Normal LLE, Normal Face BLUEPRINTER Sensory: Normal: RUE, LUE, RLE, LLE, Face - Cardiac Rhythm: Regular Murmur: None JVD: No Carotid Bruit: No - Pulmonary Breath Sounds: bilateral Clear Respiratory Effort: Symmetrical Anesthesia Assess/Plan ASA Score: 3 (CVA HTN) Modified Vinny Scale for Level of Consciousness: Cooperative, oriented, and tranquil Anesthetic Plan: General Monitoring Plan: Standard Monitors Recovery Plan: PACU (Discussed GA, agrees to proceed)
[2018-02-04] MEDS ORDERED: Acetaminophen IV 1,000 MG/100 ML INFUS..BTL ONE (10:33)
[2018-02-04] MEDS ORDERED: *HR* Propofol 200 MG/20 ML VIAL IVP ONE (11:05)
[2018-02-04] MEDS ORDERED: *HR* FentaNYL (PF) 100 MCG/2 ML VIAL ONE (11:05)
[2018-02-04] MEDS ORDERED: Lidocaine -MPF 2% 2 ML VIAL ONE (11:05)
[2018-02-04] MEDS ORDERED: *HR* Succinylcholine 200 MG/10 ML VIAL IVP ONE (11:05)
--- NOTE | 2018-02-04 11:14 | Orthopedic Operative Note ---
Date of procedure: 02/04/18 Procedure: OPERATIVE REPORT DATE OF PROCEDURE: 02/04/2018 SURGEON: Yonathan Fountain MD ALMOND HULLER(S): There are no assistants PREOPERATIVE DIAGNOSIS: Right prosthetic hip dislocation POSTOPERATIVE DIAGNOSIS: Right prosthetic hip dislocation PROCEDURE: Closed reduction of the right hip ANESTHESIA: Gen. anesthesia PREOPERATIVE ANTIBIOTICS: No antibiotics were indicated ESTIMATED BLOOD LOSS: 0 milliliters PREOPERATIVE NOTE AND INDICATIONS: This patient is an 87-year-old male with a prior total hip arthroplasty done in 2010. He has had 3 dislocations including the current one. My recommendation was for closed reduction in the operating room after an attempt was made by the emergency department staff last night in the emergency room. The surgical plan was discussed with the patient. The risks, benefits, alternatives, and potential complications of this procedure were discussed with the patient including injury to veins, arteries, nerves, tendons, ligaments, and bone. Also discussed were the risks of infection, bleeding, pain, blood clots, the possible need for a blood transfusion, the possible need for further procedures, heart attack, stroke, and . Additional risks include fracture or persistent dislocation. All of this was explained in simple terms, and the patient verbalized understanding and wished to proceed. Consent was given to proceed with surgery. PROCEDURE: The patient was seen in the preoperative holding area where the identify and the consent were confirmed. The right hip was marked. Final questions were answered. The patient was brought back to the operating room and placed supine on the operating room table. A huddle was performed with the patient and all vital surgical team members confirming patient identity, the correct procedure, and the correct operative site. Gen. anesthesia was administered. A surgical time out was performed immediately preceding the incision with all personnel in the operating room to confirm patient identity, the correct operative site and extremity, correct radiographic studies, availability of appropriate surgical equipment, and agreement on the planned procedure. With the patient supine I did climb up onto the bed where I flexed the hip to 100 degrees and internally rotated the hip about 90 degrees and placed traction on the hip which easily reduce the hip with a satisfying clunk. The leg was laid out flat where there were no deformities noted. Leg lengths were equal. There is no rotational abnormalities of the leg. X-rays confirmed good reduction. No fractures were identified. He is placed in a knee immobilizer on the right as well as a hip abduction pillow. The instrument, sponge, and needle counts were correct after wound closure. POST OPERATIVE PLAN: Weight Bearing: Touchdown weightbearing to the right lower extremity. DVT Prophylaxis: Ambulation Activity: Avoid aggressive activities with the right upper extremity Follow Up: Follow up this week in the office with Lisa Trejo PA-c Was there an library clerical assistant present: No Estimated blood loss (cc): 0
--- NOTE | 2018-02-04 11:17 | Orthopedics Progress Note ---
Date of Encounter: 02/04/18 Time of Encounter: 11:15 - Assessment and Plan (1) Hip dislocation, right Current Visit: Yes Status: Acute Qualifiers: Encounter type: initial encounter Qualified Code(s): S73.004A - Unspecified dislocation of right hip, initial encounter Subjective Interval history: S: The patient is seen in the PACU where his pain is well-controlled. O: Afebrile and vital signs are stable. Abduction pillow and immobilizer are in place NV intact distally about the right foot. A: Successful closed reduction of the right prosthetic hip dislocation P: Orthopedically stable for discharge TDWB Right lower extremity Posterior hip precautions Knee immobilizer and abduction brace while in bed Follow up this week in the office with Lisa Trejo PA-C to discuss definitive management of the right hip. Objective Vital signs: Vital Signs Temp Pulse Resp BP Pulse Ox 02/04/18 09:00 96 02/04/18 06:48 97.6 F 60 16 172/75 97 02/04/18 03:59 97.7 F 55 14 180/73 97 02/04/18 00:03 97.6 F 72 18 184/77 95 02/03/18 23:30 66 16 156/88 96 Intake and Output 02/03/18 02/04/18 02/04/18 23:59 07:59 15:59 Intake Total 0 / 0 Output Total 1300 / 1300 0 / 0 Balance -1300 / -1300 0 / 0 Intake: Oral 0 / 0 Output: Estimated Blood Loss 0 / 0 Catheter 1300 / 1300 Other: Meal NPO Weight 77 kg Patient Weight 02/04/18 23:59 Weight 77 kg - Labs CBC & BMP: 02/04/18 02:57 02/04/18 02:57 Labs: Abnormal lab results MPV 8.5 fL (9.4-12.4) L 02/04/18 02:57 Immature Plt Fraction 0.8 % (1.1-6.1) L 02/04/18 02:57 PT 12.4 Seconds (9.4-12.1) H 02/04/18 02:57 Potassium 3.3 mEq/L (3.5-5.1) L 02/04/18 02:57 Glucose 168 mg/dL (70-105) H 02/04/18 02:57 Serum Total Protein 6.2 g/dL (6.4-8.9) L 02/04/18 02:57 Globulin 2.3 g/dL (2.4-3.5) L 02/04/18 02:57 Consult Discharge Plan - Plan Referrals: Benton lAva MD [Primary Care Provider] -
[2018-02-04] MEDS ORDERED: Potassium Chloride Elixir 20 MEQ/15 ML UDC PO ONE ×2 (11:48→19:45)
--- NOTE | 2018-02-04 12:16 | Anesthesia Evaluation Post Op ---
Date of Encounter: 02/04/18 Time of Encounter: 12:00 - Vital Signs Vital Signs: Vital Signs/O2 Sat/Glucose, Most Current Temp Pulse Resp BP Pulse Ox 02/04/18 11:48 97.8 F 54 14 143/75 95 02/04/18 11:37 98.0 F 59 16 145/79 94 02/04/18 11:27 98.9 F 60 16 140/75 99 02/04/18 11:17 98.9 F 64 16 133/73 99 02/04/18 11:07 99.1 F 62 14 129/69 99 02/04/18 09:00 96 - Lungs Lungs: Clear Ascult./Percussion - Airway Airway: Non-obstructed - Cardiovascular Regular Rate - Mental Status Mental Status: Alert & Oriented, Answers Appropriately - Pain Pain Scale: 0 - Nausea Vomiting Nausea Vomiting: Not Present - Hydration Hydration: Tolerates oral liquids - Discharge PostOp Status: Transfer Patient to floor
[2018-02-04] MEDS: 0.9 % Sodium Chloride 1,000 ML IVC SCH ×2 (14:35→23:18)
--- NOTE | 2018-02-04 17:13 | Internal Med Progress Note ---
Date of Encounter: 02/04/18 Time of Encounter: 13:30 - Assessment and plan (1) Dislocation of hip joint prosthesis Current Visit: Yes Status: Acute Assessment and plan: Orthopedics consulted, underwent closed reduction of prosthetic right hip dislocation in the OR; PT/OT evaluation recommend ECF placement; continue pain control and supportive care; Qualifiers: Encounter type: initial encounter Qualified Code(s): T84.029A - Dislocation of unspecified internal joint prosthesis, initial encounter; Z96.649 - Presence of unspecified artificial hip joint (2) HTN (hypertension) Current Visit: Yes Status: Chronic Assessment and plan: BP noted to be elevated; resume home meds, he did not receive am meds due to OR today; Qualifiers: Hypertension type: essential hypertension Qualified Code(s): I10 - Essential (primary) hypertension (3) BPH (benign prostatic hyperplasia) Current Visit: Yes Status: Chronic Qualifiers: Lower urinary tract symptom presence: unspecified whether lower urinary tract symptoms present Qualified Code(s): N40.0 - Benign prostatic hyperplasia without lower urinary tract symptoms (4) GERD (gastroesophageal reflux disease) Current Visit: Yes Status: Chronic Qualifiers: Esophagitis presence: esophagitis presence not specified Qualified Code(s) : K21.9 - Gastro-esophageal reflux disease without esophagitis (5) Dementia Current Visit: Yes Status: Chronic Qualifiers: Dementia type: unspecified type Dementia behavioral disturbance: without behavioral disturbance Qualified Code(s): F03.90 - Unspecified dementia without behavioral disturbance - Time Spent With Patient Total time spent is greater than 50% in coordination of care (as documented) at patient's floor/unit and/or counseling patient: - Subjective Interval history: Slightly drowsy but able to answer questions; improved right hip pain, returned from OR after having closed reduction of right hip dislocation; no chest pain, dyspnea, nausea, vomiting; does not remember the instructions/ recommendations when PT worked with him as he was too drowsy; - Constitutional Vitals: Temp Pulse Resp BP Pulse Ox 97.6 F 60 12 160/75 96 02/04/18 12:15 02/04/18 12:15 02/04/18 12:15 02/04/18 12:15 02/04/18 12:15 General appearance: Present: A&O X 2, answers questions appropriately - Respiratory Respiratory exam: Present: CTAB. Absent: accessory muscle use, rales, rhonchi, wheezes - Cardiovascular Cardiovascular exam: Present: RRR, +S1, +S2. Absent: diastolic murmur, gallop, rubs, systolic murmur - GI/Abdominal GI/Abdominal exam: Present: normal bowel sounds, soft, no peritoneal signs. Absent: distended, tenderness Internal Medicine: Result - Labs CBC & Chem 7: 02/04/18 02:57 02/04/18 02:57 Labs: Short CBC 02/04/18 Range/Units 02:57 WBC 9.1 (4.3-11.1) K/mcL Hgb 13.0 (12.9-16.9) g/dL Hct 37.9 (37.5-50.1) % Plt Count 239 (140-400) K/mcL Neutrophils # 7.5 (1.6-8.9) K/mcL BMP 02/04/18 02:57 Sodium 140 Potassium 3.3 L Chloride 105 Carbon Dioxide 28 BUN 14 Creatinine 1.01 Glucose 168 H Calcium 8.9 Cardiac Enzymes 02/04/18 02/04/18 02/04/18 Range/Units 02:57 08:40 14:30 Troponin I < 0.03 0.03 0.03 (< 0.04) ng/mL Liver Function 02/04/18 Range/Units 02:57 Total Bilirubin 0.5 (0.3-1.0) mg/dL AST 16 (13-39) Units/L ALT 12 (7-52) Units/L Alkaline Phosphatase 72 (34-104) Units/L Albumin 3.9 (3.5-5.7) g/dL - ABG Interpretation ABG results: PT/INR, D-dimer PT 12.4 Seconds (9.4-12.1) H 02/04/18 02:57 - Impressions Impressions Hip X-Ray 02/04/18 00:00 IMPRESSION: Interval reduction of right hip prosthetic dislocation. D/ / Jacqui Conley Cha, MD / Jacqui Conley Cha, MD Interpreting Provider: Jacqui Conley Cha, MD Consult Discharge Plan - Plan Referrals: Benton Alva MD [Primary Care Provider] -
[2018-02-04] MEDS: Isosorbide MONOnitrate (24 HR) 60 MG TAB.ER.24H PO SCH (19:57)
[2018-02-05] MEDS ORDERED: Isosorbide MONOnitrate (24 HR) 60 MG TAB.ER.24H PO SCH (09:00)
[2018-02-05] MEDS ORDERED: Cholecalciferol (D-3) 1,000 UNIT TABLET PO SCH (09:00)
[2018-02-05] MEDS ORDERED: Multivit/Ca/Min/Fe/FA 1 TAB TABLET PO SCH (09:00)
[2018-02-05] MEDS ORDERED: amLODIPine 5 MG TABLET PO SCH (09:00)
[2018-02-05] MEDS ORDERED: Aspirin 325 MG TABLET PO SCH (09:00)
--- NOTE | 2018-02-05 09:18 | Orthopedics Progress Note ---
Date of Encounter: 02/05/18 Time of Encounter: 09:15 - Assessment and Plan (1) Hip dislocation, right Current Visit: Yes Status: Acute Qualifiers: Encounter type: initial encounter Qualified Code(s): S73.004A - Unspecified dislocation of right hip, initial encounter Subjective Interval history: S: Resting in bed comfortably Pain control to the right hip Was seen by therapy yesterday who is recommending inpatient rehabilitation O: Afebrile on the vital signs are stable Right lower extremity and knee immobilizer Sitting up in bed comfortably Neurovascularly intact distally to the right lower extremity A: Prosthetic hip dislocation post reduction P: At this point my recommendation is continue touchdown weightbearing on the right lower extremity Posterior hip precautions. We will require follow-up in the office to discuss definitive management of recurrent hip dislocations which may require revision arthroplasty. Orthopedically stable for discharge when disposition set up. Objective Vital signs: Vital Signs Temp Pulse Resp BP Pulse Ox 02/05/18 06:37 98.9 F 63 18 131/70 96 02/05/18 03:30 98.8 F 63 18 130/63 91 02/04/18 23:34 99.3 F 60 18 112/62 92 02/04/18 19:30 98.4 F 61 18 176/84 97 02/04/18 12:15 97.6 F 60 12 160/75 96 02/04/18 11:48 97.8 F 54 14 143/75 95 02/04/18 11:37 98.0 F 59 16 145/79 94 02/04/18 11:27 98.9 F 60 16 140/75 99 02/04/18 11:17 98.9 F 64 16 133/73 99 02/04/18 11:07 99.1 F 62 14 129/69 99 Intake and Output 02/04/18 02/05/18 02/05/18 23:59 07:59 15:59 Intake Total 300 / 300 Output Total 950 / 950 550 / 550 Balance -650 / -650 -550 / -550 Intake: Oral 300 / 300 Output: Catheter 950 / 950 550 / 550 - Labs CBC & BMP: 02/04/18 02:57 02/04/18 02:57 Labs: Abnormal lab results MPV 8.5 fL (9.4-12.4) L 02/04/18 02:57 Immature Plt Fraction 0.8 % (1.1-6.1) L 02/04/18 02:57 PT 12.4 Seconds (9.4-12.1) H 02/04/18 02:57 Potassium 3.3 mEq/L (3.5-5.1) L 02/04/18 02:57 Glucose 168 mg/dL (70-105) H 02/04/18 02:57 Serum Total Protein 6.2 g/dL (6.4-8.9) L 02/04/18 02:57 Globulin 2.3 g/dL (2.4-3.5) L 02/04/18 02:57 - VTE Documentation of Mechanical Device: Venous foot pump, device Consult Discharge Plan - Plan Referrals: Benton Alva MD [Primary Care Provider] -
[2018-02-05] MEDS: Isosorbide MONOnitrate (24 HR) 60 MG TAB.ER.24H PO SCH (11:01)
--- NOTE | 2018-02-05 12:35 | Discharge Summary ---
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; needs Orthopedics f/up in 1 week; touchdown weight-bearing as tolerated; Orders not resulted at time of discharge: Pending orders 02/04/18 01:52 Urinalysis reflex Microscopic [URIN] Routine Date of Encounter: 02/05/18 Time of Encounter: 12:34 - Discharge Diagnosis (1) Dislocation of hip joint prosthesis Priority: Primary Status: Acute Qualifiers: Encounter type: initial encounter Qualified Code(s): T84.029A - Dislocation of unspecified internal joint prosthesis, initial encounter; Z96.649 - Presence of unspecified artificial hip joint (2) HTN (hypertension) Priority: Secondary Status: Chronic Qualifiers: Hypertension type: essential hypertension Qualified Code(s): I10 - Essential (primary) hypertension (3) BPH (benign prostatic hyperplasia) Priority: Secondary Status: Chronic Qualifiers: Lower urinary tract symptom presence: unspecified whether lower urinary tract symptoms present Qualified Code(s): N40.0 - Benign prostatic hyperplasia without lower urinary tract symptoms (4) GERD (gastroesophageal reflux disease) Priority: Secondary Status: Chronic Qualifiers: Esophagitis presence: esophagitis presence not specified Qualified Code(s) : K21.9 - Gastro-esophageal reflux disease without esophagitis (5) Dementia Priority: Secondary Status: Chronic Qualifiers: Dementia type: unspecified type Dementia behavioral disturbance: without behavioral disturbance Qualified Code(s): F03.90 - Unspecified dementia without behavioral disturbance Hospital course: Mr. Flores is a 87 year old male with the above medical problems including total right hip prosthesis, was admitted with right hip pain after crossing his legs. Hip x-ray in the emergency room showed dislocation of the femoral complement of right total hip prosthesis. Orthopedic surgery was consulted and patient underwent closed reduction off right prosthetic hip joint in the operating room. He tolerated the procedure well with improvement in right hip pain. He was cleared by orthopedic surgery for discharge, with outpatient follow-up in one week. He is allowed touchdown weightbearing on right lower extremity. Physical therapy evaluation was completed, patient was deemed stable for discharge home. Discharge discussed with: patient, nurse - Time Spent with Patient Total time spent providing and/or coordinating discharge services: Greater than 30 minutes (40 min) - Discharge Medications Home Medications: Amlodipine Besylate 10 mg PO DAILY 11/25/15 [History] Chlorthalidone 25 mg PO QAM 11/25/15 [History] Donepezil [Aricept] 10 mg PO HS 11/25/15 [History] Irbesartan [Avapro] 75 mg PO DAILY 11/25/15 [History] Isosorbide MONOnitrate [Isosorbide Mononitrate ER] 120 mg PO DAILY 11/25/15 [ History] Multivit-Min/FA/Lycopen/Lutein [Centrum Silver Tablet] 1 each PO DAILY 11/25/15 [History] Omeprazole [PriLOSEC] 20 mg PO DAILY 11/25/15 [History] Tamsulosin [Flomax] 0.4 mg PO BID 11/25/15 [History] Calcium Carbonate [Calcium] 1,000 mg PO DAILY 07/12/17 [History] Cholecalciferol (D-3) [Vitamin D] 1,000 unit PO DAILY 07/12/17 [History] Aspirin 325 mg PO DAILY 10/10/17 [History] Atorvastatin [Lipitor] 40 mg PO HS 10/10/17 [History] Acetaminophen [Tylenol] 650 mg PO Q6HR PRN tablet 02/05/18 [Rx] Allergies/Adverse Reactions: 3 Allergy/AdvReac Type Severity Reaction Status Date / Time Amoxicillin Allergy Hives Verified 10/10/17 17:17 azithromycin [From Zithromax] Allergy Rash Verified 10/10/17 17:17 clindamycin Allergy Hives Verified 10/10/17 17:17 Penicillins Allergy Hives Verified 10/10/17 17:17 sulfamethoxazole Allergy Hives Verified 10/10/17 17:17 [From Bactrim] trimethoprim [From Bactrim] Allergy Hives Verified 10/10/17 17:17 Date of admission: 02/03/18 23:24 Primary care physician: Benton Alva MD Consults: 02/04/18 11:38 Consult to Occupational Therapy [CONS] Routine Comment: Evaluate, develop and implement POC Reason for Consult: EVAL AND TREAT Does patient have active BEDREST order?: No Is patient medically & hemodynamically stable?: Yes Consult to Physical Therapy [CONS] Routine Comment: Evaluate, develop and implement POC Reason for Consult: EVAL AND TREAT Does patient have active BEDREST order?: No Is patient medically & hemodynamically stable?: Yes Discharging clinician: Echo Rodríguez Anticipated date of discharge: 02/05/18 - Constitutional Vitals: Temp Pulse Resp BP Pulse Ox 98.3 F 59 16 114/65 94 02/05/18 10:58 02/05/18 10:58 02/05/18 10:58 02/05/18 10:58 02/05/18 10:58 General appearance: Present: A&O X 2, answers questions appropriately - Respiratory Respiratory exam: Present: CTAB. Absent: accessory muscle use, rales, rhonchi, wheezes - Cardiovascular Cardiovascular exam: Present: RRR, +S1, +S2. Absent: diastolic murmur, gallop, rubs, systolic murmur - Extremities Exam Extremities exam: Present: full ROM, warm, radial pulses palpable and symmetrical. Absent: calf tenderness, cyanotic, pedal edema Additional comments: right hip with no tenderness or swelling; - Patient Status Disposition: Home, Self-Care Condition: Good Functional capacity at discharge: uses cane/walker Overall status at discharge: patient is progressing back to baseline - Discharge Instructions Follow Up With: Lisa Zaldivar PAC [Physician Foot Specialist] - Benton Alva MD [Primary Care Provider] - Additional Instructions: F/up with Lisa Trejo PA-C within 1 week; WEB REQUEST WAS MADE FOR AN APPOINTMENT-THE OFFICE WILL CONTACT YOU. KEEP KNEE IMMOBILIZER ON AT ALL TIMES. TOE TOUCH WEIGHT BEARING. USE WALKER FOR AMBULATION. DO NOT CROSS LEGS, TWIST YOUR RIGHT LEG OR BEND YOUR RIGHT LEG BEYOND A 90 DEGREE ANGLE. - Diet and Activity Activity: ambulate only with your walker (touchdown weightbearing to right LE, knee immobilizer and abduction brace to be used while in bed) Diet: low fat, low cholesterol, low salt diet - VTE Documentation of Mechanical Device: Venous foot pump, device
[2018-02-05 19:14] VITALS: BP 144/68
== END 2018-02-05 20:15 | disposition home or self-care (01) ==
LOC: 3NENU 18:59 → EMEROO 18:59 → SUATTDRO 23:24 → 3NENU 23:45
PROVIDERS: ADMIT Internal Medicine Nephrology; ATTEND Internal Medicine